=== PATIENT | male | born 1955 | race Caucasian/White ===

== ENCOUNTER 2016-05-19 10:28 | Inpatient (IN) | payer OTHER ==
[~2016-05-19] VITALS: Ht 167.6 cm; Wt 133.8 kg
[~2016-05-19 10:28] MED LIST: ALBU6.7H INH; ALBU90AE IH; ATOR20TA65 PO; DILT180C69 PO; FURO-151 PO; INSU3INS6 SUBCUT; IPRA3AMP IH; LOSA50TA20 PO; METO-293 PO; MONT10TA21 PO; MULT-1008 PO; OMEP40CA34 PO; OXYC-23 PO; P20 PO; ZOLP10TA2 PO
[2016-05-19] MEDS ORDERED: ALBUTEROL (0.083%) 2.5MG/3ML NEB HHN STA ×2 (10:45→10:53)
[2016-05-19] MEDS ORDERED: IPRATROPIUM BROMIDE (0.02%) 0.5MG/2.5ML NEB HHN STA ×2 (10:45→10:53)
[2016-05-19] MEDS ORDERED: METHYLPREDNISOLONE SOD SUCC 125 MG/2 ML VIAL IV STA (10:53)
[2016-05-19] MEDS ORDERED: MAGNESIUM 2 G PREMIX 50 ML IV STA (11:06)
[2016-05-19 11:39] LABS: EOSINOPHILS % 1.9 % (0.0-5.0); HEMATOCRIT. 40.8 % (42.0-52.0); HEMOGLOBIN. 13.5 g/dL (14.0-18.0); LYMPHOCYTES % 25.1 % (20.0-50.0); MEAN CORPUSCULAR HEMOGLOBIN 29.8 pg (28.0-32.0); MEAN CORPUSCULAR HGB CONC 33.1 g/dL (31.0-37.0); MEAN CORPUSCULAR VOLUME 90.2 fL (80.0-94.0); MEAN PLATELET VOLUME 7.9 fl (7.4-10.4); MONOCYTES % 8.8 % (2.0-8.0); NEUTROPHILS % 63.2 % (40.0-76.0); PLATELET 348 x1000/uL (130-400); RED BLOOD CELL COUNT 4.53 mill/uL (4.7-6.1); RED CELL DISTRIBUTION WIDTH 17.2 % (11.6-14.6); WHITE BLOOD COUNT 7.1 x1000/uL (4.5-11.0)
[2016-05-19] MEDS ORDERED: CEFTRIAXONE 1 G PREMIX 50 ML IV ONE (11:45)
[2016-05-19] MEDS ORDERED: AZITHROMYCIN 500 MG in DEXT 5% WATER 250 ML IV ONE (11:45)
[2016-05-19 11:47] LABS: INR 1.1
[2016-05-19 11:56] LABS: ALANINE AMINOTRANSFERASE 30 IU/L (13-61); ALBUMIN 3.1 g/dL (3.4-5.0); ANION GAP 14; CALCIUM 8.6 mg/dL (8.5-10.1); CARBON DIOXIDE 27 mEq/L (21-32); CHLORIDE 103 mEq/L (98-107); INDEX HEMOLYSI 1 (1-3); INDEX ICTERIC 1 (1-4); INDEX LIPEMIC 1 (1-3); NT PRO B-TYPE NATRIURETIC PEP 60 pg/mL (5-125); TROPONIN I < 0.02 ng/mL (0.00-0.04); UREA NITROGEN BLOOD 9 mg/dL (7-21); eGFR > 60 mL/min (>60)
[2016-05-19] MEDS ORDERED: ONDANSETRON HCL 4MG/2ML VIAL IV STA (11:56)
[2016-05-19] MEDS ORDERED: MORPHINE SULFATE 4 MG/ML CPJ (NOT FOR IM USE) IV STA (11:56)
[2016-05-19 16:00] VITALS: BP 130/89
[2016-05-19] MEDS ORDERED: ALBUTEROL (0.083%) 2.5MG/3ML NEB HHN PRN (17:00)
[2016-05-19] MEDS ORDERED: ALBUTEROL 6.7GM HFA INHALER INH PRN (17:00)
[2016-05-19] MEDS ORDERED: HYDROCODONE/ACETAMINOPHEN 5/325MG TABLET PO PRN (17:03)
[2016-05-19 18:00] VITALS: BP 120/83
[2016-05-19 18:12] VITALS: BP 120/83
[2016-05-19] MEDS: METHYLPREDNISOLONE SOD SUCC 40 MG/ML VIAL IV SCH (18:26)
[2016-05-19] MEDS ORDERED: FUROSEMIDE 40MG/4ML VIAL IVP NR (18:30)
[2016-05-19] MEDS ORDERED: BENAZEPRIL 20MG TABLET PO SCH (18:30)
[2016-05-19] MEDS: IPRATROPIUM/ALBUTEROL 0.5-3(2.5)MG/3ML NEB HHN PRN (19:43)
[2016-05-19 20:00] VITALS: BP 110/61
[2016-05-19] MEDS: MORPHINE SULFATE 2 MG/ML CPJ (NOT FOR IM USE) IV PRN (20:32)
[2016-05-19] MEDS: DIPHENHYDRAMINE 25MG CAPSULE PO PRN (20:32)
[2016-05-19] MEDS: ENOXAPARIN 40MG/0.4ML SYR SUBCUT SCH (20:33)
[2016-05-19] MEDS: ATORVASTATIN CALCIUM 20MG TABLET PO SCH (20:33)
[2016-05-19] MEDS ORDERED: MONTELUKAST SODIUM 10MG TABLET PO SCH (21:00)
[2016-05-19] MEDS: LEVOFLOXACIN 500MG PREMIX 100 ML IV SCH (21:20)
[2016-05-19] MEDS: ZOLPIDEM TARTRATE 5MG TABLET PO PRN (21:43)
[2016-05-19] MEDS: INSULIN DETEMIR UD 100 UNITS/ML SYR SUBCUT SCH (21:44)
[2016-05-19] MEDS: BLOOD SUGAR DIAGNOSTIC STRIP TEST SCH (21:56)
[2016-05-19] MEDS: INSULIN LISPRO 100 UNITS/ML SUBCUT SCH (21:56)
[2016-05-19 22:00] VITALS: BP 125/54
[2016-05-19] MEDS ORDERED: DEXTROSE 50% WATER 50ML SYRINGE IV PRN (22:00)
[2016-05-20] VITALS (11 sets, daily range): BP systolic 124–138; BP diastolic 67–88
[2016-05-20] MEDS: METHYLPREDNISOLONE SOD SUCC 40 MG/ML VIAL IV SCH ×5 (00:25→23:43)
[2016-05-20] MEDS: MORPHINE SULFATE 2 MG/ML CPJ (NOT FOR IM USE) IV PRN ×6 (00:26→21:08)
[2016-05-20] MEDS: IPRATROPIUM/ALBUTEROL 0.5-3(2.5)MG/3ML NEB HHN PRN ×2 (03:10→17:46)
[2016-05-20] MEDS: DIPHENHYDRAMINE 25MG CAPSULE PO PRN ×3 (03:41→21:06)
[2016-05-20] MEDS: OMEPRAZOLE 20MG CAPSULE EXTENDED RELEASE PO SCH (06:02)
[2016-05-20 06:34] LABS: BASOPHILS % 0.3 % (0.0-2.0); HEMATOCRIT. 38.9 % (42.0-52.0); HEMOGLOBIN. 12.9 g/dL (14.0-18.0); LYMPHOCYTES % 17.1 % (20.0-50.0); MEAN CORPUSCULAR HEMOGLOBIN 30.2 pg (28.0-32.0); MEAN CORPUSCULAR HGB CONC 33.1 g/dL (31.0-37.0); MEAN CORPUSCULAR VOLUME 91.2 fL (80.0-94.0); MEAN PLATELET VOLUME 8.9 fl (7.4-10.4); MONOCYTES % 3.2 % (2.0-8.0); NEUTROPHILS % 79.4 % (40.0-76.0); PLATELET 359 x1000/uL (130-400); RED BLOOD CELL COUNT 4.27 mill/uL (4.7-6.1); RED CELL DISTRIBUTION WIDTH 17.1 % (11.6-14.6)
[2016-05-20 07:16] LABS: CHLORIDE 100 mEq/L (98-107); INDEX HEMOLYSI 1 (1-3); INDEX ICTERIC 1 (1-4); INDEX LIPEMIC 1 (1-3)
[2016-05-20 07:35] LABS: ANION GAP 16; CALCIUM 8.5 mg/dL (8.5-10.1); CARBON DIOXIDE 23 mEq/L (21-32); HDL CHOLESTEROL 47 mg/dL (40-59); LDL CHOLESTEROL 71 mg/dL (5-100); TRIGLYCERIDE 87 mg/dL (0-150); UREA NITROGEN BLOOD 17 mg/dL (7-21); eGFR > 60 mL/min (>60)
[2016-05-20] MEDS: BLOOD SUGAR DIAGNOSTIC STRIP TEST SCH ×4 (08:08→20:46)
[2016-05-20] MEDS: ENOXAPARIN 40MG/0.4ML SYR SUBCUT SCH ×2 (08:29→21:06)
[2016-05-20] MEDS: DILTIAZEM HCL 180MG CAPSULE CD 24HR PO SCH (08:29)
[2016-05-20] MEDS: MULTIVITAMINS,THER W-MINERALS TABLET PO SCH (08:29)
[2016-05-20] MEDS: LOSARTAN POTASSIUM 50 MG TABLET PO SCH (08:29)
[2016-05-20] MEDS: INSULIN LISPRO 100 UNITS/ML SUBCUT SCH ×4 (08:30→21:09)
[2016-05-20] MEDS: FUROSEMIDE 40MG TABLET PO SCH (08:30)
[2016-05-20] MEDS ORDERED: ATORVASTATIN CALCIUM 20MG TABLET PO SCH (09:00)
[2016-05-20] MEDS: LEVOFLOXACIN 500MG PREMIX 100 ML IV SCH (20:51)
[2016-05-20] MEDS: ATORVASTATIN CALCIUM 20MG TABLET PO SCH (21:06)
[2016-05-20] MEDS: INSULIN DETEMIR UD 100 UNITS/ML SYR SUBCUT SCH (21:10)
[2016-05-20] MEDS: ZOLPIDEM TARTRATE 5MG TABLET PO PRN (22:08)
[2016-05-21] VITALS (16 sets, daily range): BP systolic 114–148; BP diastolic 61–90
[2016-05-21] MEDS: MORPHINE SULFATE 2 MG/ML CPJ (NOT FOR IM USE) IV PRN ×4 (03:51→21:08)
[2016-05-21] MEDS: METHYLPREDNISOLONE SOD SUCC 40 MG/ML VIAL IV SCH ×3 (06:13→18:11)
[2016-05-21] MEDS: OMEPRAZOLE 20MG CAPSULE EXTENDED RELEASE PO SCH (06:19)
[2016-05-21] MEDS: DIPHENHYDRAMINE 25MG CAPSULE PO PRN ×2 (06:19→12:56)
[2016-05-21] MEDS: BLOOD SUGAR DIAGNOSTIC STRIP TEST SCH ×4 (08:12→20:49)
[2016-05-21] MEDS: LOSARTAN POTASSIUM 50 MG TABLET PO SCH (08:20)
[2016-05-21] MEDS: FUROSEMIDE 40MG TABLET PO SCH (08:20)
[2016-05-21] MEDS: ENOXAPARIN 40MG/0.4ML SYR SUBCUT SCH ×2 (08:21→20:49)
[2016-05-21] MEDS: INSULIN LISPRO 100 UNITS/ML SUBCUT SCH ×4 (08:23→20:48)
[2016-05-21] MEDS: DILTIAZEM HCL 180MG CAPSULE CD 24HR PO SCH (08:27)
[2016-05-21] MEDS: MULTIVITAMINS,THER W-MINERALS TABLET PO SCH (09:00)
[2016-05-21] MEDS: IPRATROPIUM/ALBUTEROL 0.5-3(2.5)MG/3ML NEB HHN PRN ×2 (12:17→20:33)
[2016-05-21] MEDS: INSULIN DETEMIR UD 100 UNITS/ML SYR SUBCUT SCH (20:49)
[2016-05-21] MEDS: LEVOFLOXACIN 500MG PREMIX 100 ML IV SCH (20:50)
[2016-05-21] MEDS: ATORVASTATIN CALCIUM 20MG TABLET PO SCH (20:50)
[2016-05-21] MEDS: ZOLPIDEM TARTRATE 5MG TABLET PO PRN (21:07)
[2016-05-22] VITALS (12 sets, daily range): BP systolic 124–155; BP diastolic 63–88
[2016-05-22] MEDS: METHYLPREDNISOLONE SOD SUCC 40 MG/ML VIAL IV SCH ×4 (00:37→18:05)
[2016-05-22] MEDS: MORPHINE SULFATE 2 MG/ML CPJ (NOT FOR IM USE) IV PRN ×5 (02:54→19:37)
[2016-05-22] MEDS: DIPHENHYDRAMINE 25MG CAPSULE PO PRN ×2 (06:39→19:38)
[2016-05-22] MEDS: BLOOD SUGAR DIAGNOSTIC STRIP TEST SCH ×4 (08:06→21:44)
[2016-05-22] MEDS: INSULIN LISPRO 100 UNITS/ML SUBCUT SCH ×4 (08:15→20:39)
[2016-05-22] MEDS: IPRATROPIUM/ALBUTEROL 0.5-3(2.5)MG/3ML NEB HHN PRN ×2 (08:50→16:05)
[2016-05-22] MEDS: ENOXAPARIN 40MG/0.4ML SYR SUBCUT SCH ×2 (09:00→20:37)
[2016-05-22] MEDS: FAMOTIDINE 20MG TABLET PO SCH ×2 (09:01→17:22)
[2016-05-22] MEDS: MULTIVITAMINS,THER W-MINERALS TABLET PO SCH (09:01)
[2016-05-22] MEDS: LOSARTAN POTASSIUM 50 MG TABLET PO SCH (09:01)
[2016-05-22] MEDS: DILTIAZEM HCL 180MG CAPSULE CD 24HR PO SCH (09:01)
[2016-05-22] MEDS: FUROSEMIDE 40MG TABLET PO SCH (09:01)
[2016-05-22] MEDS: LEVOFLOXACIN 500MG PREMIX 100 ML IV SCH (20:05)
[2016-05-22] MEDS: ATORVASTATIN CALCIUM 20MG TABLET PO SCH (20:38)
[2016-05-22] MEDS: ZOLPIDEM TARTRATE 5MG TABLET PO PRN (20:38)
[2016-05-22] MEDS: INSULIN DETEMIR UD 100 UNITS/ML SYR SUBCUT SCH (21:57)
[2016-05-23] VITALS (13 sets, daily range): BP systolic 129–165; BP diastolic 43–100
[2016-05-23] MEDS: METHYLPREDNISOLONE SOD SUCC 40 MG/ML VIAL IV SCH ×5 (00:27→23:39)
[2016-05-23] MEDS: MORPHINE SULFATE 2 MG/ML CPJ (NOT FOR IM USE) IV PRN ×5 (00:35→20:42)
[2016-05-23] MEDS: IPRATROPIUM/ALBUTEROL 0.5-3(2.5)MG/3ML NEB HHN PRN ×2 (02:29→11:58)
[2016-05-23] MEDS: DIPHENHYDRAMINE 25MG CAPSULE PO PRN ×2 (05:22→19:38)
[2016-05-23] MEDS: BLOOD SUGAR DIAGNOSTIC STRIP TEST SCH ×4 (07:50→21:00)
[2016-05-23] MEDS: INSULIN LISPRO 100 UNITS/ML SUBCUT SCH ×5 (08:30→22:18)
[2016-05-23] MEDS: ENOXAPARIN 40MG/0.4ML SYR SUBCUT SCH ×2 (08:32→20:41)
[2016-05-23] MEDS: FAMOTIDINE 20MG TABLET PO SCH ×2 (08:33→17:49)
[2016-05-23] MEDS: FUROSEMIDE 40MG TABLET PO SCH (08:33)
[2016-05-23] MEDS: LOSARTAN POTASSIUM 50 MG TABLET PO SCH (08:33)
[2016-05-23] MEDS: MULTIVITAMINS,THER W-MINERALS TABLET PO SCH (08:33)
[2016-05-23] MEDS: DILTIAZEM HCL 180MG CAPSULE CD 24HR PO SCH (08:33)
[2016-05-23] MEDS: LEVOFLOXACIN 250MG TABLET PO SCH (11:45)
[2016-05-23] MEDS: ATORVASTATIN CALCIUM 20MG TABLET PO SCH (20:41)
[2016-05-23] MEDS: ZOLPIDEM TARTRATE 5MG TABLET PO PRN (20:41)
[2016-05-23] MEDS: INSULIN DETEMIR UD 100 UNITS/ML SYR SUBCUT SCH (22:20)
[2016-05-24] VITALS (17 sets, daily range): BP systolic 106–170; BP diastolic 66–102
[2016-05-24] MEDS: IPRATROPIUM/ALBUTEROL 0.5-3(2.5)MG/3ML NEB HHN PRN (02:10)
[2016-05-24] MEDS: MORPHINE SULFATE 2 MG/ML CPJ (NOT FOR IM USE) IV PRN ×5 (04:30→21:16)
[2016-05-24] MEDS: METHYLPREDNISOLONE SOD SUCC 40 MG/ML VIAL IV SCH ×4 (05:33→23:29)
[2016-05-24] MEDS: BLOOD SUGAR DIAGNOSTIC STRIP TEST SCH ×4 (08:18→21:12)
[2016-05-24] MEDS: INSULIN LISPRO 100 UNITS/ML SUBCUT SCH ×4 (08:20→21:11)
[2016-05-24] MEDS: DILTIAZEM HCL 180MG CAPSULE CD 24HR PO SCH (08:45)
[2016-05-24] MEDS: FUROSEMIDE 40MG TABLET PO SCH (08:45)
[2016-05-24] MEDS: FAMOTIDINE 20MG TABLET PO SCH ×2 (08:46→17:18)
[2016-05-24] MEDS: MULTIVITAMINS,THER W-MINERALS TABLET PO SCH (08:46)
[2016-05-24] MEDS: ENOXAPARIN 40MG/0.4ML SYR SUBCUT SCH ×2 (08:48→21:11)
[2016-05-24] MEDS: LOSARTAN POTASSIUM 50 MG TABLET PO SCH (08:53)
[2016-05-24] MEDS: LEVOFLOXACIN 250MG TABLET PO SCH (11:23)
[2016-05-24] MEDS: INSULIN DETEMIR UD 100 UNITS/ML SYR SUBCUT SCH ×2 (11:26→21:44)
[2016-05-24] MEDS: GUAIFENESIN/CODEINE 100-10MG/5ML UDC PO PRN (14:42)
[2016-05-24] MEDS: DIPHENHYDRAMINE 25MG CAPSULE PO PRN (20:09)
[2016-05-24] MEDS: ATORVASTATIN CALCIUM 20MG TABLET PO SCH (21:11)
[2016-05-24] MEDS: ZOLPIDEM TARTRATE 5MG TABLET PO PRN (21:42)
[2016-05-25] VITALS (12 sets, daily range): BP systolic 132–163; BP diastolic 73–102
[2016-05-25] MEDS: MORPHINE SULFATE 2 MG/ML CPJ (NOT FOR IM USE) IV PRN ×3 (02:15→13:06)
[2016-05-25] MEDS: GUAIFENESIN/CODEINE 100-10MG/5ML UDC PO PRN ×2 (04:00→08:29)
[2016-05-25] MEDS: METHYLPREDNISOLONE SOD SUCC 40 MG/ML VIAL IV SCH ×4 (05:13→23:58)
[2016-05-25 07:12] LABS: BASOPHILS % 0.6 % (0.0-2.0); HEMATOCRIT. 44.8 % (42.0-52.0); HEMOGLOBIN. 14.4 g/dL (14.0-18.0); LYMPHOCYTES % 10.2 % (20.0-50.0); MEAN CORPUSCULAR HEMOGLOBIN 29.5 pg (28.0-32.0); MEAN CORPUSCULAR HGB CONC 32.3 g/dL (31.0-37.0); MEAN CORPUSCULAR VOLUME 91.6 fL (80.0-94.0); MEAN PLATELET VOLUME 9.1 fl (7.4-10.4); MONOCYTES % 4.4 % (2.0-8.0); NEUTROPHILS % 84.8 % (40.0-76.0); PLATELET 405 x1000/uL (130-400); RED BLOOD CELL COUNT 4.89 mill/uL (4.7-6.1); RED CELL DISTRIBUTION WIDTH 16.7 % (11.6-14.6); WHITE BLOOD COUNT 17.2 x1000/uL (4.5-11.0)
[2016-05-25 07:29] LABS: ANION GAP 13; CALCIUM 8.7 mg/dL (8.5-10.1); CARBON DIOXIDE 35 mEq/L (21-32); CHLORIDE 99 mEq/L (98-107); INDEX HEMOLYSI 2 (1-3); INDEX ICTERIC 1 (1-4); INDEX LIPEMIC 1 (1-3); UREA NITROGEN BLOOD 27 mg/dL (7-21); eGFR > 60 mL/min (>60)
[2016-05-25] MEDS: BLOOD SUGAR DIAGNOSTIC STRIP TEST SCH ×4 (07:30→20:35)
[2016-05-25] MEDS: MULTIVITAMINS,THER W-MINERALS TABLET PO SCH (08:29)
[2016-05-25] MEDS: FAMOTIDINE 20MG TABLET PO SCH ×2 (08:29→17:21)
[2016-05-25] MEDS: FUROSEMIDE 40MG TABLET PO SCH (08:29)
[2016-05-25] MEDS: LOSARTAN POTASSIUM 50 MG TABLET PO SCH (08:29)
[2016-05-25] MEDS: DILTIAZEM HCL 180MG CAPSULE CD 24HR PO SCH (08:30)
[2016-05-25] MEDS: ENOXAPARIN 40MG/0.4ML SYR SUBCUT SCH ×2 (08:30→20:41)
[2016-05-25] MEDS: INSULIN LISPRO 100 UNITS/ML SUBCUT SCH ×4 (08:31→20:35)
[2016-05-25] MEDS: INSULIN DETEMIR UD 100 UNITS/ML SYR SUBCUT SCH ×2 (09:14→21:45)
[2016-05-25] MEDS: DIPHENHYDRAMINE 25MG CAPSULE PO PRN ×2 (11:32→20:33)
[2016-05-25] MEDS: LEVOFLOXACIN 250MG TABLET PO SCH (11:32)
[2016-05-25] MEDS: CLONIDINE 0.1MG TABLET PO PRN (11:33)
[2016-05-25] MEDS: ALBUTEROL 2MG TABLET PO SCH (16:35)
[2016-05-25] MEDS: MORPHINE SULFATE 4 MG/ML CPJ (NOT FOR IM USE) IV PRN ×2 (17:26→21:44)
[2016-05-25] MEDS: BUDESONIDE 0.5MG/2ML NEB HHN SCH (20:10)
[2016-05-25] MEDS: ATORVASTATIN CALCIUM 20MG TABLET PO SCH (20:33)
[2016-05-25] MEDS: ZOLPIDEM TARTRATE 5MG TABLET PO PRN (21:43)
[2016-05-26] VITALS (13 sets, daily range): BP systolic 124–166; BP diastolic 75–96
[2016-05-26] MEDS: MORPHINE SULFATE 4 MG/ML CPJ (NOT FOR IM USE) IV PRN ×6 (02:07→23:54)
[2016-05-26] MEDS: GUAIFENESIN/CODEINE 100-10MG/5ML UDC PO PRN ×3 (04:37→15:34)
[2016-05-26] MEDS: METHYLPREDNISOLONE SOD SUCC 40 MG/ML VIAL IV SCH ×4 (06:23→23:00)
[2016-05-26] MEDS: CLONIDINE 0.1MG TABLET PO PRN (07:17)
[2016-05-26] MEDS: BLOOD SUGAR DIAGNOSTIC STRIP TEST SCH ×4 (07:30→20:59)
[2016-05-26] MEDS: ENOXAPARIN 40MG/0.4ML SYR SUBCUT SCH ×2 (08:39→21:10)
[2016-05-26] MEDS: FUROSEMIDE 40MG TABLET PO SCH (08:40)
[2016-05-26] MEDS: MULTIVITAMINS,THER W-MINERALS TABLET PO SCH (08:40)
[2016-05-26] MEDS: LOSARTAN POTASSIUM 50 MG TABLET PO SCH (08:40)
[2016-05-26] MEDS: FAMOTIDINE 20MG TABLET PO SCH ×2 (08:40→18:10)
[2016-05-26] MEDS: DILTIAZEM HCL 180MG CAPSULE CD 24HR PO SCH (08:40)
[2016-05-26] MEDS: INSULIN LISPRO 100 UNITS/ML SUBCUT SCH ×4 (08:42→21:11)
[2016-05-26] MEDS: INSULIN DETEMIR UD 100 UNITS/ML SYR SUBCUT SCH ×2 (09:51→21:12)
[2016-05-26] MEDS: DIPHENHYDRAMINE 25MG CAPSULE PO PRN ×2 (11:27→23:00)
[2016-05-26] MEDS: LEVOFLOXACIN 250MG TABLET PO SCH (11:28)
[2016-05-26] MEDS: BUDESONIDE 0.5MG/2ML NEB HHN SCH (20:46)
[2016-05-26] MEDS: ATORVASTATIN CALCIUM 20MG TABLET PO SCH (21:10)
[2016-05-26] MEDS: ZOLPIDEM TARTRATE 5MG TABLET PO PRN (21:15)
[2016-05-27] VITALS (9 sets, daily range): BP systolic 123–160; BP diastolic 60–100
[2016-05-27] MEDS: MORPHINE SULFATE 4 MG/ML CPJ (NOT FOR IM USE) IV PRN ×3 (04:09→12:13)
[2016-05-27] MEDS: METHYLPREDNISOLONE SOD SUCC 40 MG/ML VIAL IV SCH ×2 (05:01→12:13)
[2016-05-27] MEDS: BLOOD SUGAR DIAGNOSTIC STRIP TEST SCH ×2 (08:19→11:59)
[2016-05-27] MEDS: FUROSEMIDE 40MG TABLET PO SCH (08:25)
[2016-05-27] MEDS: FAMOTIDINE 20MG TABLET PO SCH (08:25)
[2016-05-27] MEDS: ENOXAPARIN 40MG/0.4ML SYR SUBCUT SCH (08:25)
[2016-05-27] MEDS: MULTIVITAMINS,THER W-MINERALS TABLET PO SCH (08:25)
[2016-05-27] MEDS: LOSARTAN POTASSIUM 50 MG TABLET PO SCH (08:25)
[2016-05-27] MEDS: INSULIN LISPRO 100 UNITS/ML SUBCUT SCH ×2 (08:26→12:10)
[2016-05-27] MEDS: DILTIAZEM HCL 180MG CAPSULE CD 24HR PO SCH (08:37)
[2016-05-27] MEDS: INSULIN DETEMIR UD 100 UNITS/ML SYR SUBCUT SCH (09:50)
[2016-05-27] MEDS: BUDESONIDE 0.5MG/2ML NEB HHN SCH (09:52)
[2016-05-27] MEDS: IPRATROPIUM/ALBUTEROL 0.5-3(2.5)MG/3ML NEB HHN PRN (09:52)
[2016-05-27] MEDS: ALBUTEROL 2MG TABLET PO SCH (13:50)
== END 2016-05-27 18:36 | disposition home or self-care, planned readmission (81) | DRG 189 ==
LOC: ER 11:16 → 5EST 12:44
PROVIDERS: ADMIT Internal Medicine; ATTEND Internal Medicine
DX: J96.00 Acute respiratory failure, unspecified whether with hypoxia or hypercapnia (principal); J45.901 Unspecified asthma with (acute) exacerbation; E44.1 Mild protein-calorie malnutrition; J44.1 Chronic obstructive pulmonary disease with (acute) exacerbation; Z68.42 Body mass index [BMI] 45.0-49.9, adult; J44.9 Chronic obstructive pulmonary disease, unspecified; E11.9 Type 2 diabetes mellitus without complications; E78.5 Hyperlipidemia, unspecified; J20.9 Acute bronchitis, unspecified; E66.9 Obesity, unspecified; E66.01 Morbid (severe) obesity due to excess calories; G89.29 Other chronic pain; M54.5 Low back pain; I10 Essential (primary) hypertension; Z90.49 Acquired absence of other specified parts of digestive tract; Z79.899 Other long term (current) drug therapy; Z99.81 Dependence on supplemental oxygen
CPT/HCPCS: 36415; 71010; 80048; 80053; 80061; 82962; 83605; 83880; 84484; 85025; 85610; 87040; 93005; 94640; 94660; 96365; 96367; 96368; 96375; 99291; J0456; J0696; J1650; J1815; J1940; J1956; J2270; J2405; J2920; J2930; J3475; J7050; J7060; J7611; J7620; J7626; Q0163

== ENCOUNTER 2016-09-05 17:40 | Observation (INO) | payer OTHER ==
[~2016-09-05] VITALS: Ht 167.6 cm; Wt 129.7 kg
[~2016-09-05 17:40] MED LIST changes: +IOHEXOL-350 100 ML BOTTLE ONE; -IPRA3AMP IH; +IPRA3AMP9 IH; +SODIUM CHLORIDE 0.9% 10ML VIAL ONE; +TEMA15CA PO
[2016-09-05] MEDS ORDERED: ONDANSETRON HCL 4MG/2ML VIAL IV STA (18:55)
[2016-09-05] MEDS ORDERED: MORPHINE SULFATE 4 MG/ML CPJ (NOT FOR IM USE) IV STA (18:55)
[2016-09-05] MEDS ORDERED: SODIUM CHLORIDE 0.9% 1,000 ML IV ONE (18:55)
[2016-09-05 19:19] LABS: BASOPHILS % 0.7 % (0.0-2.0); EOSINOPHILS % 1.3 % (0.0-5.0); HEMATOCRIT. 38.4 % (42.0-52.0); HEMOGLOBIN. 12.6 g/dL (14.0-18.0); LYMPHOCYTES % 26.7 % (20.0-50.0); MEAN CORPUSCULAR VOLUME 85.6 fL (80.0-94.0); MONOCYTES % 9.4 % (2.0-8.0); NEUTROPHILS % 61.9 % (40.0-76.0); RED BLOOD CELL COUNT 4.48 mill/uL (4.7-6.1); RED CELL DISTRIBUTION WIDTH 20.3 % (11.6-14.6)
[2016-09-05 19:21] LABS: PROTHROMBIN TIME 10.2 sec
[2016-09-05 19:30] LABS: CARBON DIOXIDE 26 mEq/L (21-32); CHLORIDE 110 mEq/L (98-107); TROPONIN I < 0.02 ng/mL (0.00-0.04)
[2016-09-05 19:35] LABS: PLATELET 503 x1000/uL (130-400)
[2016-09-05 19:36] LABS: MEAN PLATELET VOLUME 8.7 fl (7.4-10.4)
[2016-09-05] MEDS ORDERED: LEVOFLOXACIN 750MG PREMIX 150 ML IV SCH (20:00)
[2016-09-06] MEDS ORDERED: IPRATROPIUM/ALBUTEROL 0.5-3(2.5)MG/3ML NEB HHN PRN
[2016-09-06] MEDS ORDERED: DEXTROSE 50% WATER 50ML SYRINGE IV PRN
[2016-09-06] MEDS ORDERED: OXYCODONE HCL/ACETAMINOPHEN 5/325MG TABLET PO PRN (00:30)
[2016-09-06] MEDS: TEMAZEPAM 15MG CAPSULE PO PRN ×2 (01:20→21:40)
[2016-09-06] MEDS: MORPHINE SULFATE 4 MG/ML CPJ (NOT FOR IM USE) IV PRN ×5 (03:21→22:35)
[2016-09-06] MEDS: PIPERACILLIN/TAZ 3.375G PREMIX 50 ML IV SCH ×4 (03:21→21:42)
[2016-09-06] MEDS: BLOOD SUGAR DIAGNOSTIC STRIP TEST SCH ×4 (05:54→21:42)
[2016-09-06] MEDS: INSULIN LISPRO 100 UNITS/ML SUBCUT SCH ×4 (05:55→22:08)
[2016-09-06] MEDS: PANTOPRAZOLE 40MG DR TABLET PO SCH (06:25)
[2016-09-06 06:33] LABS: BASOPHILS % 0.8 % (0.0-2.0); EOSINOPHILS % 1.6 % (0.0-5.0); HEMATOCRIT. 37.6 % (42.0-52.0); LYMPHOCYTES % 31.5 % (20.0-50.0); MEAN CORPUSCULAR HEMOGLOBIN 27.7 pg (28.0-32.0); MEAN CORPUSCULAR VOLUME 86.3 fL (80.0-94.0); MEAN PLATELET VOLUME 8.8 fl (7.4-10.4); MONOCYTES % 8.2 % (2.0-8.0); NEUTROPHILS % 57.9 % (40.0-76.0); PLATELET 487 x1000/uL (130-400); RED BLOOD CELL COUNT 4.35 mill/uL (4.7-6.1); RED CELL DISTRIBUTION WIDTH 19.9 % (11.6-14.6)
[2016-09-06] MEDS: IPRATROPIUM/ALBUTEROL 0.5-3(2.5)MG/3ML NEB HHN PRN ×2 (06:36→19:59)
[2016-09-06 07:12] LABS: CARBON DIOXIDE 25 mEq/L (21-32); CHLORIDE 107 mEq/L (98-107)
[2016-09-06] MEDS: PREDNISONE 20MG TABLET PO SCH (08:28)
[2016-09-06] MEDS: FUROSEMIDE 40MG TABLET PO SCH (08:28)
[2016-09-06] MEDS: DILTIAZEM HCL 180MG CAPSULE CD 24HR PO SCH (08:29)
[2016-09-06] MEDS: LOSARTAN POTASSIUM 50 MG TABLET PO SCH (08:29)
[2016-09-06] MEDS: MULTIVITAMINS,THER W-MINERALS TABLET PO SCH (08:29)
[2016-09-06] MEDS: ENOXAPARIN 30MG/0.3ML SYR SUBCUT SCH ×2 (08:36→21:42)
[2016-09-06] MEDS ORDERED: ENOXAPARIN 40MG/0.4ML SYR SUBCUT SCH (09:00)
[2016-09-06] MEDS ORDERED: MEDICATION NOT ON FORMULARY EA (Omeprazole 40 MG) PO SCH (09:00)
[2016-09-06] MEDS ORDERED: [UNRECOGNIZED DRUG - OTHER] PO SCH (09:00)
[2016-09-06 14:17] LABS: TROPONIN I < 0.02 ng/mL (0.00-0.04)
[2016-09-06] MEDS: ATORVASTATIN CALCIUM 20MG TABLET PO SCH (21:41)
[2016-09-06] MEDS: MONTELUKAST SODIUM 10MG TABLET PO SCH (21:41)
[2016-09-06] MEDS: INSULIN DETEMIR UD 100 UNITS/ML SYR SUBCUT SCH (22:34)
[2016-09-07] MEDS: PIPERACILLIN/TAZ 3.375G PREMIX 50 ML IV SCH ×6 (02:42→09:03)
[2016-09-07] MEDS: MORPHINE SULFATE 4 MG/ML CPJ (NOT FOR IM USE) IV PRN ×4 (02:54→20:36)
[2016-09-07] MEDS: BLOOD SUGAR DIAGNOSTIC STRIP TEST SCH ×4 (06:56→20:35)
[2016-09-07] MEDS: PANTOPRAZOLE 40MG DR TABLET PO SCH (06:59)
[2016-09-07] MEDS: INSULIN LISPRO 100 UNITS/ML SUBCUT SCH ×4 (07:17→21:35)
[2016-09-07] MEDS: IPRATROPIUM/ALBUTEROL 0.5-3(2.5)MG/3ML NEB HHN PRN ×3 (07:55→23:56)
[2016-09-07] MEDS: DILTIAZEM HCL 180MG CAPSULE CD 24HR PO SCH (08:46)
[2016-09-07] MEDS: PREDNISONE 20MG TABLET PO SCH (08:46)
[2016-09-07] MEDS: FUROSEMIDE 40MG TABLET PO SCH (08:46)
[2016-09-07] MEDS: MULTIVITAMINS,THER W-MINERALS TABLET PO SCH (08:46)
[2016-09-07] MEDS: LOSARTAN POTASSIUM 50 MG TABLET PO SCH (08:46)
[2016-09-07] MEDS: ENOXAPARIN 30MG/0.3ML SYR SUBCUT SCH ×2 (08:47→20:35)
[2016-09-07 10:43] LABS: BASOPHILS % 0.8 % (0.0-2.0); EOSINOPHILS % 0.9 % (0.0-5.0); HEMATOCRIT. 34.5 % (42.0-52.0); HEMOGLOBIN. 11.1 g/dL (14.0-18.0); LYMPHOCYTES % 26.5 % (20.0-50.0); MEAN CORPUSCULAR HEMOGLOBIN 27.4 pg (28.0-32.0); MEAN CORPUSCULAR VOLUME 85.2 fL (80.0-94.0); MEAN PLATELET VOLUME 8.5 fl (7.4-10.4); MONOCYTES % 7.7 % (2.0-8.0); NEUTROPHILS % 64.1 % (40.0-76.0); PLATELET 496 x1000/uL (130-400); RED BLOOD CELL COUNT 4.05 mill/uL (4.7-6.1); RED CELL DISTRIBUTION WIDTH 19.8 % (11.6-14.6)
[2016-09-07 10:58] LABS: CARBON DIOXIDE 30 mEq/L (21-32); CHLORIDE 104 mEq/L (98-107)
[2016-09-07] MEDS ORDERED: FUROSEMIDE 40MG/4ML VIAL IVP NR (16:45)
[2016-09-07] MEDS ORDERED: POTASSIUM CHLORIDE 20MEQ TABLET SR PO NR (16:45)
[2016-09-07] MEDS: ATORVASTATIN CALCIUM 20MG TABLET PO SCH (20:35)
[2016-09-07] MEDS: MONTELUKAST SODIUM 10MG TABLET PO SCH (20:35)
[2016-09-07] MEDS: TEMAZEPAM 15MG CAPSULE PO PRN (21:32)
[2016-09-07] MEDS: INSULIN DETEMIR UD 100 UNITS/ML SYR SUBCUT SCH (21:35)
[2016-09-08] MEDS: MORPHINE SULFATE 4 MG/ML CPJ (NOT FOR IM USE) IV PRN ×6 (00:35→21:53)
[2016-09-08] MEDS: PIPERACILLIN/TAZ 3.375G PREMIX 50 ML IV SCH ×4 (03:48→21:53)
[2016-09-08] MEDS: INSULIN LISPRO 100 UNITS/ML SUBCUT SCH ×4 (06:18→20:29)
[2016-09-08] MEDS: BLOOD SUGAR DIAGNOSTIC STRIP TEST SCH ×4 (06:18→20:29)
[2016-09-08] MEDS: DILTIAZEM HCL 180MG CAPSULE CD 24HR PO SCH (09:02)
[2016-09-08] MEDS: PREDNISONE 20MG TABLET PO SCH (09:02)
[2016-09-08] MEDS: ENOXAPARIN 30MG/0.3ML SYR SUBCUT SCH (09:02)
[2016-09-08] MEDS: LOSARTAN POTASSIUM 50 MG TABLET PO SCH (09:02)
[2016-09-08] MEDS: FAMOTIDINE 20MG TABLET PO SCH ×2 (09:02→20:28)
[2016-09-08] MEDS: FUROSEMIDE 40MG TABLET PO SCH (09:02)
[2016-09-08] MEDS: MULTIVITAMINS,THER W-MINERALS TABLET PO SCH (09:02)
[2016-09-08] MEDS: IPRATROPIUM/ALBUTEROL 0.5-3(2.5)MG/3ML NEB HHN PRN ×2 (10:11→21:14)
[2016-09-08] MEDS ORDERED: POTASSIUM CHLORIDE 20MEQ TABLET SR PO SCH (18:00)
[2016-09-08] MEDS: MONTELUKAST SODIUM 10MG TABLET PO SCH (20:28)
[2016-09-08] MEDS: ENOXAPARIN 40MG/0.4ML SYR SUBCUT SCH (20:29)
[2016-09-08] MEDS: ATORVASTATIN CALCIUM 20MG TABLET PO SCH (20:29)
[2016-09-08] MEDS: TEMAZEPAM 15MG CAPSULE PO PRN (21:59)
[2016-09-08] MEDS: INSULIN DETEMIR UD 100 UNITS/ML SYR SUBCUT SCH (22:00)
[2016-09-09] MEDS: MORPHINE SULFATE 4 MG/ML CPJ (NOT FOR IM USE) IV PRN ×5 (02:44→20:06)
[2016-09-09] MEDS: PIPERACILLIN/TAZ 3.375G PREMIX 50 ML IV SCH ×4 (03:57→21:30)
[2016-09-09] MEDS: IPRATROPIUM/ALBUTEROL 0.5-3(2.5)MG/3ML NEB HHN PRN ×3 (05:28→13:09)
[2016-09-09] MEDS: BLOOD SUGAR DIAGNOSTIC STRIP TEST SCH ×4 (06:19→20:24)
[2016-09-09] MEDS: INSULIN LISPRO 100 UNITS/ML SUBCUT SCH ×4 (06:19→20:24)
[2016-09-09 06:24] LABS: EOSINOPHILS % 0.3 % (0.0-5.0); HEMATOCRIT. 37.7 % (42.0-52.0); HEMOGLOBIN. 12.1 g/dL (14.0-18.0); LYMPHOCYTES % 32.7 % (20.0-50.0); MEAN CORPUSCULAR HEMOGLOBIN 27.8 pg (28.0-32.0); MEAN CORPUSCULAR VOLUME 86.8 fL (80.0-94.0); MONOCYTES % 8.9 % (2.0-8.0); NEUTROPHILS % 55.1 % (40.0-76.0); PLATELET 527 x1000/uL (130-400); RED BLOOD CELL COUNT 4.34 mill/uL (4.7-6.1); RED CELL DISTRIBUTION WIDTH 20.2 % (11.6-14.6)
[2016-09-09] MEDS: LOSARTAN POTASSIUM 50 MG TABLET PO SCH (09:00)
[2016-09-09] MEDS: DILTIAZEM HCL 180MG CAPSULE CD 24HR PO SCH (09:00)
[2016-09-09] MEDS: MULTIVITAMINS,THER W-MINERALS TABLET PO SCH (09:01)
[2016-09-09] MEDS: PREDNISONE 20MG TABLET PO SCH (09:01)
[2016-09-09] MEDS: FUROSEMIDE 40MG TABLET PO SCH (09:01)
[2016-09-09] MEDS: FAMOTIDINE 20MG TABLET PO SCH ×2 (09:01→20:03)
[2016-09-09] MEDS: ENOXAPARIN 40MG/0.4ML SYR SUBCUT SCH ×2 (09:02→20:04)
[2016-09-09] MEDS: MONTELUKAST SODIUM 10MG TABLET PO SCH (20:03)
[2016-09-09] MEDS: ATORVASTATIN CALCIUM 20MG TABLET PO SCH (20:03)
[2016-09-09] MEDS: INSULIN DETEMIR UD 100 UNITS/ML SYR SUBCUT SCH (21:30)
[2016-09-09] MEDS: TEMAZEPAM 15MG CAPSULE PO PRN (21:35)
[2016-09-10] MEDS: MORPHINE SULFATE 4 MG/ML CPJ (NOT FOR IM USE) IV PRN ×4 (00:50→13:48)
[2016-09-10] MEDS: PIPERACILLIN/TAZ 3.375G PREMIX 50 ML IV SCH ×2 (05:06→10:10)
[2016-09-10 05:58] LABS: EOSINOPHILS % 0.4 % (0.0-5.0); HEMATOCRIT. 36.7 % (42.0-52.0); HEMOGLOBIN. 11.9 g/dL (14.0-18.0); LYMPHOCYTES % 25.9 % (20.0-50.0); MEAN CORPUSCULAR HEMOGLOBIN 27.7 pg (28.0-32.0); MEAN CORPUSCULAR VOLUME 85.5 fL (80.0-94.0); MEAN PLATELET VOLUME 8.7 fl (7.4-10.4); MONOCYTES % 7.3 % (2.0-8.0); NEUTROPHILS % 65.4 % (40.0-76.0); PLATELET 514 x1000/uL (130-400); RED BLOOD CELL COUNT 4.29 mill/uL (4.7-6.1); RED CELL DISTRIBUTION WIDTH 19.8 % (11.6-14.6)
[2016-09-10 06:17] LABS: CARBON DIOXIDE 32 mEq/L (21-32); CHLORIDE 102 mEq/L (98-107)
[2016-09-10] MEDS: BLOOD SUGAR DIAGNOSTIC STRIP TEST SCH ×2 (06:44→11:45)
[2016-09-10] MEDS: INSULIN LISPRO 100 UNITS/ML SUBCUT SCH ×2 (07:00→13:48)
[2016-09-10] MEDS: PREDNISONE 20MG TABLET PO SCH (08:16)
[2016-09-10] MEDS: FUROSEMIDE 40MG TABLET PO SCH (08:16)
[2016-09-10] MEDS: MULTIVITAMINS,THER W-MINERALS TABLET PO SCH (08:16)
[2016-09-10] MEDS: DILTIAZEM HCL 180MG CAPSULE CD 24HR PO SCH (08:16)
[2016-09-10] MEDS: LOSARTAN POTASSIUM 50 MG TABLET PO SCH (08:16)
[2016-09-10] MEDS: FAMOTIDINE 20MG TABLET PO SCH (08:16)
[2016-09-10] MEDS: ENOXAPARIN 40MG/0.4ML SYR SUBCUT SCH (08:17)
[2016-09-10] MEDS: IPRATROPIUM/ALBUTEROL 0.5-3(2.5)MG/3ML NEB HHN PRN ×2 (10:23→13:14)
[2016-09-10 16:00] VITALS: BP 116/80
[2016-12-21] MEDS ORDERED: MIRT30TA PO (00:53)
[2016-12-21] MEDS ORDERED: METO-293 PO (00:55)
[2017-01-25] MEDS ORDERED: P20 PO (05:27)
[2017-01-25] MEDS ORDERED: LEVVL SQ (05:27)
[2017-01-25] MEDS ORDERED: DIPH25CA83 PO (05:27)
[2017-04-04] MEDS ORDERED: INSHUMSS SUBCUT (00:43)
== END 2016-09-10 17:10 | disposition home or self-care (01) ==
LOC: ER 18:50 → EDBEDREQ 19:42 → 5WST 19:54 → INTOOBSV 19:54 → ENRESERV 19:55 → EDBEDREQ 19:56 → 5WST 09-06 18:45
PROVIDERS: ADMIT Internal Medicine; ATTEND Internal Medicine
DX: J18.1 Lobar pneumonia, unspecified organism (principal); J44.0 Chronic obstructive pulmonary disease with (acute) lower respiratory infection; J45.901 Unspecified asthma with (acute) exacerbation; E11.9 Type 2 diabetes mellitus without complications; E66.09 Other obesity due to excess calories; I10 Essential (primary) hypertension; E78.5 Hyperlipidemia, unspecified; G47.33 Obstructive sleep apnea (adult) (pediatric); G89.29 Other chronic pain; M54.5 Low back pain; Z68.42 Body mass index [BMI] 45.0-49.9, adult; Z77.098 Contact with and (suspected) exposure to other hazardous, chiefly nonmedicinal, chemicals; Z90.49 Acquired absence of other specified parts of digestive tract; Z91.19 Patient's noncompliance with other medical treatment and regimen
CPT/HCPCS: 36415; 71010; 71275; 80048; 80053; 82962; 83605; 83880; 84484; 85025; 85610; 86431; 87040; 93005; 93306; 94640; 94660; 96361; 96365; 96366; 96367; 96372; 96375; 96376; 99285; A4216; G0378; J1650; J1815; J1940; J1956; J2270; J2405; J2543; J7040; J7050; J7512; Q9967; J7030; J7620; A4315

== ENCOUNTER 2016-11-02 22:09 | Inpatient (IN) | payer OTHER ==
[~2016-11-02] VITALS: Ht 167.6 cm; Wt 131.5 kg
[~2016-11-02 22:09] MED LIST changes: -ALBU6.7H INH; -ALBU90AE IH; -IOHEXOL-350 100 ML BOTTLE ONE; -SODIUM CHLORIDE 0.9% 10ML VIAL ONE
[2016-11-02] MEDS ORDERED: ALBUTEROL (0.083%) 2.5MG/3ML NEB HHN STA ×2 (22:42→23:08)
[2016-11-02] MEDS ORDERED: IPRATROPIUM BROMIDE (0.02%) 0.5MG/2.5ML NEB HHN STA (22:42)
[2016-11-02] MEDS ORDERED: METHYLPREDNISOLONE SOD SUCC 125 MG/2 ML VIAL IV STA (22:42)
[2016-11-02 23:08] LABS: CHLORIDE 112 mEq/L (98-107)
[2016-11-02] MEDS ORDERED: MORPHINE SULFATE 4 MG/ML CPJ (NOT FOR IM USE) IV STA (23:08)
[2016-11-02] MEDS ORDERED: ONDANSETRON HCL 4MG/2ML VIAL IV STA (23:08)
[2016-11-02 23:10] LABS: BASOPHILS % 0.8 % (0.0-2.0); EOSINOPHILS % 2.4 % (0.0-5.0); HEMATOCRIT. 41.4 % (42.0-52.0); HEMOGLOBIN. 13.5 g/dL (14.0-18.0); MEAN CORPUSCULAR HEMOGLOBIN 28.4 pg (28.0-32.0); MEAN CORPUSCULAR VOLUME 87.4 fL (80.0-94.0); MONOCYTES % 11.6 % (2.0-8.0); NEUTROPHILS % 51.2 % (40.0-76.0); PLATELET 376 x1000/uL (130-400); RED BLOOD CELL COUNT 4.74 mill/uL (4.7-6.1); RED CELL DISTRIBUTION WIDTH 22.2 % (11.6-14.6)
[2016-11-02 23:18] LABS: CARBON DIOXIDE 24 mEq/L (21-32); TROPONIN I < 0.02 ng/mL (0.00-0.04)
[2016-11-02 23:38] LABS: PLATELET ESTIMATE NORMAL
[2016-11-03] MEDS ORDERED: LEVOFLOXACIN 750MG PREMIX 150 ML IV ONE (00:15)
[2016-11-03] MEDS ORDERED: ALBUTEROL (0.083%) 2.5MG/3ML NEB HHN STA (00:38)
[2016-11-03 04:00] VITALS: BP 128/90
[2016-11-03 04:19] VITALS: BP 128/90
[2016-11-03] MEDS ORDERED: DEXTROSE 50% WATER 50ML SYRINGE IV PRN (05:00)
[2016-11-03] MEDS ORDERED: IPRATROPIUM/ALBUTEROL 0.5-3(2.5)MG/3ML NEB HHN PRN (05:00)
[2016-11-03] MEDS: MORPHINE SULFATE 4 MG/ML CPJ (NOT FOR IM USE) IV PRN ×5 (05:26→22:03)
[2016-11-03] MEDS: BLOOD SUGAR DIAGNOSTIC STRIP TEST SCH ×4 (06:25→20:37)
[2016-11-03] MEDS: INSULIN LISPRO 100 UNITS/ML SUBCUT SCH ×4 (06:28→21:08)
[2016-11-03] MEDS: METHYLPREDNISOLONE SOD SUCC 40 MG/ML VIAL IV SCH ×3 (06:33→21:02)
[2016-11-03 08:30] VITALS: BP 148/90
[2016-11-03] MEDS: ENOXAPARIN 30MG/0.3ML SYR SUBCUT SCH ×2 (08:56→21:03)
[2016-11-03] MEDS ORDERED: ENOXAPARIN 40MG/0.4ML SYR SUBCUT SCH (09:00)
[2016-11-03] MEDS: IPRATROPIUM/ALBUTEROL 0.5-3(2.5)MG/3ML NEB HHN SCH ×4 (09:01→20:47)
[2016-11-03 12:30] VITALS: BP 128/82
[2016-11-03 16:00] VITALS: BP 115/82
[2016-11-03 20:00] VITALS: BP 123/75
[2016-11-03] MEDS: DIPHENHYDRAMINE 25MG CAPSULE PO PRN (21:02)
[2016-11-03] MEDS: ATORVASTATIN CALCIUM 20MG TABLET PO SCH (21:02)
[2016-11-03] MEDS: TEMAZEPAM 15MG CAPSULE PO SCH (21:03)
[2016-11-04] VITALS (7 sets, daily range): BP systolic 115–132; BP diastolic 70–77
[2016-11-04] MEDS: IPRATROPIUM/ALBUTEROL 0.5-3(2.5)MG/3ML NEB HHN SCH ×6 (00:18→21:21)
[2016-11-04] MEDS: MORPHINE SULFATE 4 MG/ML CPJ (NOT FOR IM USE) IV PRN ×5 (03:04→20:12)
[2016-11-04] MEDS: BLOOD SUGAR DIAGNOSTIC STRIP TEST SCH ×4 (05:47→21:56)
[2016-11-04] MEDS: METHYLPREDNISOLONE SOD SUCC 40 MG/ML VIAL IV SCH ×3 (05:48→21:53)
[2016-11-04] MEDS: METOCLOPRAMIDE HCL 10MG TABLET PO SCH ×2 (05:48→18:05)
[2016-11-04] MEDS: OMEPRAZOLE 20MG CAPSULE EXTENDED RELEASE PO SCH (05:49)
[2016-11-04] MEDS: DIPHENHYDRAMINE 25MG CAPSULE PO PRN ×3 (05:51→22:04)
[2016-11-04] MEDS: INSULIN LISPRO 100 UNITS/ML SUBCUT SCH ×4 (06:36→22:11)
[2016-11-04] MEDS ORDERED: MEDICATION NOT ON FORMULARY EA (Omeprazole 40 MG) PO SCH (09:00)
[2016-11-04] MEDS ORDERED: [UNRECOGNIZED DRUG - OTHER] PO SCH (09:00)
[2016-11-04] MEDS: FUROSEMIDE 40MG TABLET PO SCH (09:31)
[2016-11-04] MEDS: MULTIVITAMINS,THER W-MINERALS TABLET PO SCH (09:31)
[2016-11-04] MEDS: LOSARTAN POTASSIUM 50 MG TABLET PO SCH (09:31)
[2016-11-04] MEDS: DILTIAZEM HCL 180MG CAPSULE CD 24HR PO SCH (09:31)
[2016-11-04] MEDS: ENOXAPARIN 30MG/0.3ML SYR SUBCUT SCH ×2 (09:32→21:57)
[2016-11-04] MEDS: TEMAZEPAM 15MG CAPSULE PO SCH (21:53)
[2016-11-04] MEDS: ATORVASTATIN CALCIUM 20MG TABLET PO SCH (21:53)
[2016-11-05] VITALS: BP 110/54
[2016-11-05] MEDS: IPRATROPIUM/ALBUTEROL 0.5-3(2.5)MG/3ML NEB HHN SCH ×6 (00:19→20:42)
[2016-11-05] MEDS: MORPHINE SULFATE 4 MG/ML CPJ (NOT FOR IM USE) IV PRN ×6 (00:29→23:12)
[2016-11-05 04:00] VITALS: BP 131/78
[2016-11-05] MEDS: METHYLPREDNISOLONE SOD SUCC 40 MG/ML VIAL IV SCH ×3 (06:23→23:05)
[2016-11-05] MEDS: METOCLOPRAMIDE HCL 10MG TABLET PO SCH ×2 (06:23→18:25)
[2016-11-05] MEDS: OMEPRAZOLE 20MG CAPSULE EXTENDED RELEASE PO SCH (06:23)
[2016-11-05] MEDS: DIPHENHYDRAMINE 25MG CAPSULE PO PRN ×2 (06:25→20:52)
[2016-11-05] MEDS: BLOOD SUGAR DIAGNOSTIC STRIP TEST SCH ×4 (06:28→20:53)
[2016-11-05] MEDS: INSULIN LISPRO 100 UNITS/ML SUBCUT SCH ×4 (06:39→21:01)
[2016-11-05 07:10] LABS: BASOPHILS % 0.3 % (0.0-2.0); EOSINOPHILS % 0.1 % (0.0-5.0); HEMATOCRIT. 37.9 % (42.0-52.0); HEMOGLOBIN. 12.2 g/dL (14.0-18.0); LYMPHOCYTES % 7.1 % (20.0-50.0); MEAN CORPUSCULAR HEMOGLOBIN 27.8 pg (28.0-32.0); MEAN CORPUSCULAR VOLUME 86.5 fL (80.0-94.0); MEAN PLATELET VOLUME 9.7 fl (7.4-10.4); MONOCYTES % 3.1 % (2.0-8.0); NEUTROPHILS % 89.4 % (40.0-76.0); PLATELET 407 x1000/uL (130-400); RED BLOOD CELL COUNT 4.38 mill/uL (4.7-6.1); RED CELL DISTRIBUTION WIDTH 21.4 % (11.6-14.6)
[2016-11-05 07:49] LABS: CARBON DIOXIDE 30 mEq/L (21-32); CHLORIDE 101 mEq/L (98-107)
[2016-11-05] MEDS: ENOXAPARIN 30MG/0.3ML SYR SUBCUT SCH ×2 (09:31→20:56)
[2016-11-05] MEDS: DILTIAZEM HCL 180MG CAPSULE CD 24HR PO SCH (09:31)
[2016-11-05] MEDS: LOSARTAN POTASSIUM 50 MG TABLET PO SCH (09:31)
[2016-11-05] MEDS: FUROSEMIDE 40MG TABLET PO SCH (09:31)
[2016-11-05] MEDS: MULTIVITAMINS,THER W-MINERALS TABLET PO SCH (09:31)
[2016-11-05 12:00] VITALS: BP 114/85
[2016-11-05 16:00] VITALS: BP 114/71
[2016-11-05 20:00] VITALS: BP 110/63
[2016-11-05] MEDS: TEMAZEPAM 15MG CAPSULE PO SCH (20:51)
[2016-11-05] MEDS: ATORVASTATIN CALCIUM 20MG TABLET PO SCH (20:51)
[2016-11-05] MEDS ORDERED: INSULIN LISPRO 100 UNITS/ML SUBCUT NR (21:45)
[2016-11-06] VITALS: BP 108/63
[2016-11-06] MEDS: IPRATROPIUM/ALBUTEROL 0.5-3(2.5)MG/3ML NEB HHN SCH ×3 (00:32→08:11)
[2016-11-06 03:22] VITALS: BP 134/76
[2016-11-06] MEDS: MORPHINE SULFATE 4 MG/ML CPJ (NOT FOR IM USE) IV PRN ×3 (03:30→12:56)
[2016-11-06 04:00] VITALS: BP 134/76
[2016-11-06] MEDS: BLOOD SUGAR DIAGNOSTIC STRIP TEST SCH ×2 (06:38→12:33)
[2016-11-06] MEDS: METHYLPREDNISOLONE SOD SUCC 40 MG/ML VIAL IV SCH ×2 (06:48→14:55)
[2016-11-06] MEDS: METOCLOPRAMIDE HCL 10MG TABLET PO SCH (06:51)
[2016-11-06] MEDS: OMEPRAZOLE 20MG CAPSULE EXTENDED RELEASE PO SCH (06:51)
[2016-11-06] MEDS: INSULIN LISPRO 100 UNITS/ML SUBCUT SCH ×2 (06:58→12:57)
[2016-11-06] MEDS: LOSARTAN POTASSIUM 50 MG TABLET PO SCH (08:20)
[2016-11-06] MEDS: MULTIVITAMINS,THER W-MINERALS TABLET PO SCH (08:20)
[2016-11-06] MEDS: DILTIAZEM HCL 180MG CAPSULE CD 24HR PO SCH (08:20)
[2016-11-06] MEDS: ENOXAPARIN 30MG/0.3ML SYR SUBCUT SCH (08:20)
[2016-11-06] MEDS: FUROSEMIDE 40MG TABLET PO SCH (09:44)
[2016-11-06] MEDS: DIPHENHYDRAMINE 25MG CAPSULE PO PRN (14:55)
[2016-11-06 15:13] VITALS: BP 124/70
[2016-12-21] MEDS ORDERED: MIRT30TA PO (00:53)
[2016-12-21] MEDS ORDERED: METO-293 PO (00:55)
== END 2016-11-06 15:50 | disposition home or self-care (01) | DRG 189 ==
LOC: ER 22:09 → OBSVTOIN 11-03 00:25 → 5WST 11-03 00:25 → INTOOBSV 11-03 00:25 → EDBEDREQ 11-03 00:38 → ENRESERV 11-03 02:03
PROVIDERS: ADMIT Internal Medicine; ATTEND Internal Medicine
PROC: 5A09357 Assistance with Respiratory Ventilation, Less than 24 Consecutive Hours, Continuous Positive Airway Pressure (ICD-10-PCS; principal; 2016-11-02)
DX: J96.90 Respiratory failure, unspecified, unspecified whether with hypoxia or hypercapnia (principal); I11.0 Hypertensive heart disease with heart failure; J44.1 Chronic obstructive pulmonary disease with (acute) exacerbation; J45.901 Unspecified asthma with (acute) exacerbation; I50.9 Heart failure, unspecified; Z68.42 Body mass index [BMI] 45.0-49.9, adult; J98.11 Atelectasis; E78.5 Hyperlipidemia, unspecified; E66.01 Morbid (severe) obesity due to excess calories; K21.9 Gastro-esophageal reflux disease without esophagitis; M51.9 Unspecified thoracic, thoracolumbar and lumbosacral intervertebral disc disorder; E11.9 Type 2 diabetes mellitus without complications; E78.00 Pure hypercholesterolemia, unspecified; M54.5 Low back pain; G47.00 Insomnia, unspecified; G47.33 Obstructive sleep apnea (adult) (pediatric); G89.29 Other chronic pain; Z79.52 Long term (current) use of systemic steroids; Z79.899 Other long term (current) drug therapy; Z87.01 Personal history of pneumonia (recurrent); Z90.49 Acquired absence of other specified parts of digestive tract; Z88.6 Allergy status to analgesic agent; Z79.4 Long term (current) use of insulin; Z88.0 Allergy status to penicillin
CPT/HCPCS: 36415; 71010; 76881; 80048; 80053; 82962; 83605; 83880; 84484; 85025; 85610; 87040; 93005; 94640; 94660; 96365; 96366; 96375; 99291; J1650; J1815; J1956; J2270; J2405; J2920; J2930; J7611; J7620; J8597; Q0163

== ENCOUNTER 2016-11-16 17:00 | Inpatient (IN) | payer OTHER ==
[~2016-11-16] VITALS: Ht 167.6 cm; Wt 128.8 kg
[2016-11-16] MEDS ORDERED: NITROGLYCERIN 0.4MG TABLET SL SL PRN (18:30)
[2016-11-16] MEDS ORDERED: ASPIRIN 81MG TABLET PO ONE (18:30)
[2016-11-16 18:58] LABS: BASOPHILS % 0.3 % (0.0-2.0); HEMOGLOBIN. 13.3 g/dL (14.0-18.0); LYMPHOCYTES % 10.1 % (20.0-50.0); MEAN CORPUSCULAR HEMOGLOBIN 28.1 pg (28.0-32.0); MEAN CORPUSCULAR VOLUME 86.5 fL (80.0-94.0); MEAN PLATELET VOLUME 9.7 fl (7.4-10.4); MONOCYTES % 4.9 % (2.0-8.0); NEUTROPHILS % 84.7 % (40.0-76.0); PLATELET 248 x1000/uL (130-400); RED BLOOD CELL COUNT 4.74 mill/uL (4.7-6.1); RED CELL DISTRIBUTION WIDTH 21.8 % (11.6-14.6)
[2016-11-16 19:01] LABS: PROTHROMBIN TIME 10.2 sec (9.4-11.6)
[2016-11-16 19:03] LABS: CHLORIDE 109 mEq/L (98-107)
[2016-11-16 19:10] LABS: CARBON DIOXIDE 32 mEq/L (21-32)
[2016-11-16 19:12] LABS: TROPONIN I < 0.02 ng/mL (0.00-0.04)
[2016-11-16 20:13] LABS: CLARITY URINE CLEAR (CLEAR); COLOR URINE YELLOW (YELLOW); GLUCOSE URINE 3+ (NEGATIVE); KETONES URINE NEGATIVE (NEGATIVE); LEUKOCYTE ESTERASE URINE NEGATIVE (NEGATIVE); NITRITE URINE NEGATIVE (NEGATIVE); OCCULT BLOOD URINE NEGATIVE (NEGATIVE); PROTEIN URINE NEGATIVE (NEGATIVE); SPECIFIC GRAVITY URINE 1.029 (1.005-1.030)
[2016-11-16] MEDS ORDERED: SODIUM CHLORIDE 0.9% 1,000 ML IV SCH (20:17)
[2016-11-16 20:27] LABS: *AMPHETAMINES SCREEN URINE NEGATIVE (NEGATIVE); *BARBITURATES SCREEN URINE NEGATIVE (NEGATIVE); *BENZODIAZEPINES SCREEN URINE NEGATIVE (NEGATIVE); *COCAINE SCREEN URINE NEGATIVE (NEGATIVE); CANNABINOID URINE SCREEN NEGATIVE (NEGATIVE); METHADONE URINE SCREEN NEGATIVE (NEGATIVE); OPIATES URINE SCREEN NEGATIVE (NEGATIVE); PHENCYCLIDINE URINE SCREEN NEGATIVE (NEGATIVE)
[2016-11-16] MEDS ORDERED: ACETAMINOPHEN 325MG TABLET PO PRN ×2 (20:30→22:45)
[2016-11-16] MEDS ORDERED: IBUPROFEN 600MG TABLET PO PRN (20:30)
[2016-11-16 21:15] VITALS: BP 131/87
[2016-11-16 21:44] VITALS: BP 137/87
[2016-11-16] MEDS ORDERED: IPRATROPIUM/ALBUTEROL 0.5-3(2.5)MG/3ML NEB HHN PRN (22:45)
[2016-11-16] MEDS ORDERED: ENOXAPARIN 40MG/0.4ML SYR SUBCUT SCH (22:45)
[2016-11-16] MEDS: TEMAZEPAM 15MG CAPSULE PO SCH (23:59)
[2016-11-17] VITALS: BP 137/82
[2016-11-17] MEDS: IPRATROPIUM/ALBUTEROL 0.5-3(2.5)MG/3ML NEB HHN SCH ×6 (00:36→21:21)
[2016-11-17] MEDS ORDERED: DEXTROSE 50% WATER 50ML SYRINGE IV PRN (02:15)
[2016-11-17 04:00] VITALS: BP 131/78
[2016-11-17] MEDS: HYDROCODONE/ACETAMINOPHEN 5/325MG TABLET PO PRN ×4 (04:30→17:34)
[2016-11-17 06:11] LABS: HEMATOCRIT. 37.1 % (42.0-52.0); MEAN CORPUSCULAR VOLUME 86.5 fL (80.0-94.0); MEAN PLATELET VOLUME 10.7 fl (7.4-10.4); PLATELET 218 x1000/uL (130-400); RED BLOOD CELL COUNT 4.29 mill/uL (4.7-6.1); RED CELL DISTRIBUTION WIDTH 21.6 % (11.6-14.6)
[2016-11-17] MEDS: PANTOPRAZOLE 40MG DR TABLET PO SCH ×2 (06:29→22:19)
[2016-11-17] MEDS: SODIUM CHLORIDE 0.9% INJ 3ML FLUSH IVF SCH ×3 (06:30→22:26)
[2016-11-17] MEDS: BLOOD SUGAR DIAGNOSTIC STRIP TEST SCH ×4 (06:30→21:00)
[2016-11-17 06:41] LABS: CARBON DIOXIDE 29 mEq/L (21-32); CHLORIDE 108 mEq/L (98-107); HDL CHOLESTEROL 57 mg/dL (40-59); LDL CHOLESTEROL 62 mg/dL (5-100); TROPONIN I < 0.02 ng/mL (0.00-0.04)
[2016-11-17] MEDS: INSULIN LISPRO 100 UNITS/ML SUBCUT SCH ×4 (06:54→22:26)
[2016-11-17 08:00] VITALS: BP 124/67
[2016-11-17] MEDS: FUROSEMIDE 40MG TABLET PO SCH (08:52)
[2016-11-17] MEDS: ENOXAPARIN 30MG/0.3ML SYR SUBCUT SCH ×2 (08:52→22:22)
[2016-11-17] MEDS: DILTIAZEM HCL 180MG CAPSULE CD 24HR PO SCH (08:53)
[2016-11-17] MEDS: PREDNISONE 20MG TABLET PO SCH (08:53)
[2016-11-17] MEDS: LOSARTAN POTASSIUM 50 MG TABLET PO SCH (08:53)
[2016-11-17] MEDS ORDERED: ASPIRIN 325MG EC TABLET PO SCH (09:00)
[2016-11-17] MEDS: INSULIN DETEMIR UD 100 UNITS/ML SYR SUBCUT SCH ×2 (10:57→22:25)
[2016-11-17 12:00] VITALS: BP 108/61
[2016-11-17 12:57] LABS: PLATELET ESTIMATE NORMAL
[2016-11-17 16:00] VITALS: BP 104/72
[2016-11-17 20:00] VITALS: BP 111/84
[2016-11-17] MEDS: MORPHINE SULFATE 4 MG/ML CPJ (NOT FOR IM USE) IV PRN (20:04)
[2016-11-17] MEDS: MONTELUKAST SODIUM 10MG TABLET PO SCH (22:19)
[2016-11-17] MEDS: ATORVASTATIN CALCIUM 40MG TABLET PO SCH (22:19)
[2016-11-17] MEDS: TEMAZEPAM 15MG CAPSULE PO SCH (22:19)
[2016-11-18] VITALS: BP 155/76
[2016-11-18] MEDS: IPRATROPIUM/ALBUTEROL 0.5-3(2.5)MG/3ML NEB HHN SCH ×6 (01:31→20:14)
[2016-11-18] MEDS: MORPHINE SULFATE 4 MG/ML CPJ (NOT FOR IM USE) IV PRN ×4 (02:01→21:16)
[2016-11-18 04:00] VITALS: BP 112/63
[2016-11-18] MEDS: PANTOPRAZOLE 40MG DR TABLET PO SCH (05:38)
[2016-11-18] MEDS: SODIUM CHLORIDE 0.9% INJ 3ML FLUSH IVF SCH ×3 (05:38→21:22)
[2016-11-18] MEDS: BLOOD SUGAR DIAGNOSTIC STRIP TEST SCH ×4 (05:41→21:22)
[2016-11-18] MEDS: INSULIN LISPRO 100 UNITS/ML SUBCUT SCH ×4 (05:41→21:00)
[2016-11-18 08:00] VITALS: BP 119/76
[2016-11-18] MEDS: LOSARTAN POTASSIUM 50 MG TABLET PO SCH (09:55)
[2016-11-18] MEDS: FUROSEMIDE 40MG TABLET PO SCH (09:55)
[2016-11-18] MEDS: DILTIAZEM HCL 180MG CAPSULE CD 24HR PO SCH (09:55)
[2016-11-18] MEDS: PREDNISONE 20MG TABLET PO SCH (09:55)
[2016-11-18] MEDS: INSULIN DETEMIR UD 100 UNITS/ML SYR SUBCUT SCH ×2 (10:03→21:22)
[2016-11-18] MEDS: ENOXAPARIN 30MG/0.3ML SYR SUBCUT SCH ×2 (10:05→21:15)
[2016-11-18 11:36] VITALS: BP 94/65
[2016-11-18 17:10] VITALS: BP 105/70
[2016-11-18 20:00] VITALS: BP 107/79
[2016-11-18] MEDS: MONTELUKAST SODIUM 10MG TABLET PO SCH (21:15)
[2016-11-18] MEDS: ATORVASTATIN CALCIUM 40MG TABLET PO SCH (21:15)
[2016-11-18] MEDS: TEMAZEPAM 15MG CAPSULE PO SCH (21:15)
[2016-11-19] VITALS: BP 105/66
[2016-11-19] MEDS: IPRATROPIUM/ALBUTEROL 0.5-3(2.5)MG/3ML NEB HHN SCH ×5 (00:16→20:42)
[2016-11-19] MEDS: MORPHINE SULFATE 4 MG/ML CPJ (NOT FOR IM USE) IV PRN ×4 (03:30→21:53)
[2016-11-19 04:00] VITALS: BP 116/68
[2016-11-19] MEDS: BLOOD SUGAR DIAGNOSTIC STRIP TEST SCH ×4 (06:58→20:36)
[2016-11-19] MEDS: SODIUM CHLORIDE 0.9% INJ 3ML FLUSH IVF SCH ×3 (06:58→21:53)
[2016-11-19] MEDS: INSULIN LISPRO 100 UNITS/ML SUBCUT SCH ×4 (06:59→21:57)
[2016-11-19] MEDS: FAMOTIDINE 20MG TABLET PO SCH ×2 (09:00→18:00)
[2016-11-19] MEDS: ENOXAPARIN 30MG/0.3ML SYR SUBCUT SCH ×2 (09:34→20:36)
[2016-11-19] MEDS: PREDNISONE 20MG TABLET PO SCH ×2 (09:34→18:15)
[2016-11-19] MEDS: FUROSEMIDE 40MG TABLET PO SCH (09:34)
[2016-11-19] MEDS: LOSARTAN POTASSIUM 50 MG TABLET PO SCH (09:34)
[2016-11-19] MEDS: DILTIAZEM HCL 180MG CAPSULE CD 24HR PO SCH (09:34)
[2016-11-19] MEDS: INSULIN DETEMIR UD 100 UNITS/ML SYR SUBCUT SCH ×2 (10:28→21:57)
[2016-11-19 12:00] VITALS: BP 112/74
[2016-11-19 12:16] LABS: BASOPHILS % 0.4 % (0.0-2.0); EOSINOPHILS % 0.8 % (0.0-5.0); HEMATOCRIT. 39.2 % (42.0-52.0); HEMOGLOBIN. 12.8 g/dL (14.0-18.0); LYMPHOCYTES % 17.4 % (20.0-50.0); MEAN CORPUSCULAR HEMOGLOBIN 28.5 pg (28.0-32.0); MEAN CORPUSCULAR VOLUME 87.3 fL (80.0-94.0); MEAN PLATELET VOLUME 9.1 fl (7.4-10.4); MONOCYTES % 3.7 % (2.0-8.0); NEUTROPHILS % 77.7 % (40.0-76.0); PLATELET 201 x1000/uL (130-400); RED BLOOD CELL COUNT 4.49 mill/uL (4.7-6.1)
[2016-11-19 12:20] LABS: CHLORIDE 99 mEq/L (98-107)
[2016-11-19 12:26] LABS: CARBON DIOXIDE 33 mEq/L (21-32)
[2016-11-19 16:00] VITALS: BP 103/61
[2016-11-19 18:00] VITALS: BP 103/61
[2016-11-19 20:00] VITALS: BP 101/68
[2016-11-19] MEDS: ATORVASTATIN CALCIUM 40MG TABLET PO SCH (20:35)
[2016-11-19] MEDS: MONTELUKAST SODIUM 10MG TABLET PO SCH (20:35)
[2016-11-19] MEDS: TEMAZEPAM 15MG CAPSULE PO SCH (21:52)
[2016-11-20] VITALS (7 sets, daily range): BP systolic 113–137; BP diastolic 69–86
[2016-11-20] MEDS: IPRATROPIUM/ALBUTEROL 0.5-3(2.5)MG/3ML NEB HHN SCH ×5 (00:47→23:49)
[2016-11-20] MEDS: MORPHINE SULFATE 4 MG/ML CPJ (NOT FOR IM USE) IV PRN ×4 (03:59→21:58)
[2016-11-20] MEDS: SODIUM CHLORIDE 0.9% INJ 3ML FLUSH IVF SCH ×2 (06:40→16:58)
[2016-11-20] MEDS: BLOOD SUGAR DIAGNOSTIC STRIP TEST SCH ×4 (06:40→21:41)
[2016-11-20] MEDS: PREDNISONE 20MG TABLET PO SCH ×2 (06:40→16:58)
[2016-11-20] MEDS: INSULIN LISPRO 100 UNITS/ML SUBCUT SCH ×4 (06:42→21:59)
[2016-11-20] MEDS: FAMOTIDINE 20MG TABLET PO SCH ×2 (09:52→16:58)
[2016-11-20] MEDS: FUROSEMIDE 40MG TABLET PO SCH (09:53)
[2016-11-20] MEDS: LOSARTAN POTASSIUM 50 MG TABLET PO SCH (09:53)
[2016-11-20] MEDS: DILTIAZEM HCL 180MG CAPSULE CD 24HR PO SCH (09:53)
[2016-11-20] MEDS: ENOXAPARIN 30MG/0.3ML SYR SUBCUT SCH ×2 (09:55→21:57)
[2016-11-20] MEDS: INSULIN DETEMIR UD 100 UNITS/ML SYR SUBCUT SCH ×2 (09:56→22:06)
[2016-11-20] MEDS: TEMAZEPAM 15MG CAPSULE PO SCH (21:57)
[2016-11-20] MEDS: MONTELUKAST SODIUM 10MG TABLET PO SCH (21:57)
[2016-11-20] MEDS: ATORVASTATIN CALCIUM 40MG TABLET PO SCH (21:57)
[2016-11-21] VITALS: BP 142/74
[2016-11-21] MEDS: IPRATROPIUM/ALBUTEROL 0.5-3(2.5)MG/3ML NEB HHN SCH ×3 (03:29→12:00)
[2016-11-21] MEDS: MORPHINE SULFATE 4 MG/ML CPJ (NOT FOR IM USE) IV PRN ×2 (03:34→09:58)
[2016-11-21 04:00] VITALS: BP 117/73
[2016-11-21] MEDS: BLOOD SUGAR DIAGNOSTIC STRIP TEST SCH ×2 (06:02→12:20)
[2016-11-21] MEDS: PREDNISONE 20MG TABLET PO SCH (06:17)
[2016-11-21] MEDS: INSULIN LISPRO 100 UNITS/ML SUBCUT SCH ×2 (06:19→13:36)
[2016-11-21] MEDS: SODIUM CHLORIDE 0.9% INJ 3ML FLUSH IVF SCH ×2 (06:20→06:21)
[2016-11-21 08:00] VITALS: BP 101/79
[2016-11-21] MEDS: DILTIAZEM HCL 180MG CAPSULE CD 24HR PO SCH (08:28)
[2016-11-21] MEDS: FUROSEMIDE 40MG TABLET PO SCH (08:28)
[2016-11-21] MEDS: FAMOTIDINE 20MG TABLET PO SCH (08:28)
[2016-11-21] MEDS: LOSARTAN POTASSIUM 50 MG TABLET PO SCH (08:29)
[2016-11-21] MEDS: ENOXAPARIN 30MG/0.3ML SYR SUBCUT SCH (08:29)
[2016-11-21] MEDS: INSULIN DETEMIR UD 100 UNITS/ML SYR SUBCUT SCH (09:59)
[2016-11-21 12:00] VITALS: BP 106/74
[2016-11-21 14:10] VITALS: BP 122/78
[2016-12-21] MEDS ORDERED: MIRT30TA PO (00:53)
[2016-12-21] MEDS ORDERED: METO-293 PO (00:55)
== END 2016-11-21 15:31 | disposition home or self-care (01) | DRG 189 ==
LOC: ER 19:29 → 5WST 20:21 → ENRESERV 20:32
PROVIDERS: ADMIT Internal Medicine; ATTEND Internal Medicine
DX: J96.90 Respiratory failure, unspecified, unspecified whether with hypoxia or hypercapnia (principal); I11.0 Hypertensive heart disease with heart failure; I50.9 Heart failure, unspecified; J44.0 Chronic obstructive pulmonary disease with (acute) lower respiratory infection; Z68.42 Body mass index [BMI] 45.0-49.9, adult; E66.01 Morbid (severe) obesity due to excess calories; G89.29 Other chronic pain; M54.5 Low back pain; E11.9 Type 2 diabetes mellitus without complications; E78.00 Pure hypercholesterolemia, unspecified; J20.9 Acute bronchitis, unspecified; M06.9 Rheumatoid arthritis, unspecified; Z90.49 Acquired absence of other specified parts of digestive tract; Z79.4 Long term (current) use of insulin; Z88.6 Allergy status to analgesic agent; Z79.899 Other long term (current) drug therapy
CPT/HCPCS: 36415; 71010; 80048; 80053; 80061; 80305; 81001; 82962; 83880; 84484; 85025; 85610; 86430; 86431; 93005; 94640; 94664; 96360; 99285; J1650; J1815; J2270; J7030; J7512; J7620

== ENCOUNTER 2016-12-09 11:06 | Inpatient (IN) | payer OTHER ==
[~2016-12-09] VITALS: Ht 167.6 cm; Wt 129.7 kg
[2016-12-09] MEDS ORDERED: MORPHINE SULFATE 4 MG/ML CPJ (NOT FOR IM USE) IV STA (12:08)
[2016-12-09] MEDS ORDERED: ONDANSETRON HCL 4MG/2ML VIAL IV STA (12:08)
[2016-12-09] MEDS ORDERED: METHYLPREDNISOLONE SOD SUCC 125 MG/2 ML VIAL IV STA (12:08)
[2016-12-09] MEDS ORDERED: IPRATROPIUM/ALBUTEROL 0.5-3(2.5)MG/3ML NEB HHN ONE ×2 (12:15→16:30)
[2016-12-09 12:25] LABS: HEMATOCRIT. 40.6 % (42.0-52.0); HEMOGLOBIN. 13.3 g/dL (14.0-18.0); LYMPHOCYTES % 40.2 % (20.0-50.0); MEAN CORPUSCULAR HEMOGLOBIN 28.8 pg (28.0-32.0); MEAN CORPUSCULAR VOLUME 87.9 fL (80.0-94.0); MEAN PLATELET VOLUME 8.6 fl (7.4-10.4); MONOCYTES % 8.8 % (2.0-8.0); PLATELET 416 x1000/uL (130-400); RED BLOOD CELL COUNT 4.62 mill/uL (4.7-6.1); RED CELL DISTRIBUTION WIDTH 19.7 % (11.6-14.6)
[2016-12-09 12:37] LABS: PARTIAL THROMBOPLASTIN TIME 26.2 sec (23.4-31.0); PROTHROMBIN TIME 10.8 sec (9.4-11.6)
[2016-12-09 12:41] LABS: CARBON DIOXIDE 27 mEq/L (21-32); CHLORIDE 105 mEq/L (98-107); TROPONIN I < 0.02 ng/mL (0.00-0.04)
[2016-12-09 13:00] LABS: BG BASE EXCESS 1.5 mmol/L (-2.0-2.0); BG CARBOXYHEMOGLOBIN 0.8 % (0.5-1.5); BG DEOXYHEMOGLOBIN 1.4 % (0.0-5.0); BG FRACTION INSPIRED OXYGEN 60; BG HCO3 ACT 26.7 mmol/L (22.0-26.0); BG METHEMOGLOBIN 0.3 % (0.0-1.5); BG OXYGEN SATURATION 98.6 % (92.0-98.5); BG OXYHEMOGLOBIN 97.5 % (94.0-97.0); BG PCO2 44.1 mmHg (35.0-45.0); BG PO2 137.3 mmHg (75.0-100.0); BG SAMPLE SITE LEFT RADIAL; BG TOTAL HEMOGLOBIN 13.8 g/dL (12.0-18.0)
[2016-12-09] MEDS ORDERED: ONDANSETRON HCL 4MG/2ML VIAL IV ONE (16:30)
[2016-12-09] MEDS ORDERED: MORPHINE SULFATE 4 MG/ML CPJ (NOT FOR IM USE) IV ONE (16:30)
[2016-12-09 18:00] VITALS: BP 135/81
[2016-12-09] MEDS: DILTIAZEM HCL 180MG CAPSULE CD 24HR PO SCH (19:00)
[2016-12-09] MEDS ORDERED: DEXTROSE 50% WATER 50ML SYRINGE IV PRN (19:00)
[2016-12-09 20:00] VITALS: BP 114/77
[2016-12-09] MEDS: ATORVASTATIN CALCIUM 20MG TABLET PO SCH (21:11)
[2016-12-09] MEDS: ENOXAPARIN 30MG/0.3ML SYR SUBCUT SCH (21:11)
[2016-12-09] MEDS: MORPHINE SULFATE 4 MG/ML CPJ (NOT FOR IM USE) IV PRN (21:12)
[2016-12-09] MEDS: BLOOD SUGAR DIAGNOSTIC STRIP TEST SCH (21:59)
[2016-12-09] MEDS: DIPHENHYDRAMINE 50MG/ML VIAL IV PRN (22:22)
[2016-12-09] MEDS: METHYLPREDNISOLONE SOD SUCC 40 MG/ML VIAL IV SCH (22:22)
[2016-12-09] MEDS: INSULIN LISPRO 100 UNITS/ML SUBCUT SCH (22:25)
[2016-12-09] MEDS ORDERED: INSULIN LISPRO 100 UNITS/ML SUBCUT NR (22:30)
[2016-12-09] MEDS: TEMAZEPAM 15MG CAPSULE PO PRN (22:48)
[2016-12-09] MEDS ORDERED: INSULIN DETEMIR UD 100 UNITS/ML SYR SUBCUT NR (23:30)
[2016-12-10] VITALS: BP 132/80
[2016-12-10] MEDS: MORPHINE SULFATE 4 MG/ML CPJ (NOT FOR IM USE) IV PRN ×5 (01:23→19:58)
[2016-12-10 04:00] VITALS: BP 117/73
[2016-12-10] MEDS: IPRATROPIUM/ALBUTEROL 0.5-3(2.5)MG/3ML NEB HHN SCH ×6 (04:00→21:11)
[2016-12-10] MEDS: METHYLPREDNISOLONE SOD SUCC 40 MG/ML VIAL IV SCH ×3 (05:36→22:11)
[2016-12-10] MEDS: BLOOD SUGAR DIAGNOSTIC STRIP TEST SCH ×4 (06:07→21:10)
[2016-12-10 08:00] VITALS: BP 126/80
[2016-12-10] MEDS: LOSARTAN POTASSIUM 50 MG TABLET PO SCH (08:34)
[2016-12-10] MEDS: OMEPRAZOLE 20MG CAPSULE EXTENDED RELEASE PO SCH (08:34)
[2016-12-10] MEDS: DILTIAZEM HCL 180MG CAPSULE CD 24HR PO SCH (08:35)
[2016-12-10] MEDS: ENOXAPARIN 30MG/0.3ML SYR SUBCUT SCH ×2 (08:36→21:09)
[2016-12-10] MEDS: INSULIN LISPRO 100 UNITS/ML SUBCUT SCH ×4 (08:40→21:09)
[2016-12-10] MEDS ORDERED: ENOXAPARIN 40MG/0.4ML SYR SUBCUT SCH (09:00)
[2016-12-10] MEDS ORDERED: INFLUENZA VIRUS VACCINE 0.5ML SYR IM ONE (12:00)
[2016-12-10 12:11] VITALS: BP 121/72
[2016-12-10] MEDS: DIPHENHYDRAMINE 50MG/ML VIAL IV PRN ×2 (14:25→22:18)
[2016-12-10 16:00] VITALS: BP 101/69
[2016-12-10] MEDS: MONTELUKAST SODIUM 10MG TABLET PO SCH (17:37)
[2016-12-10 20:01] VITALS: BP 100/55
[2016-12-10] MEDS: ATORVASTATIN CALCIUM 20MG TABLET PO SCH (21:09)
[2016-12-10] MEDS ORDERED: INSULIN DETEMIR UD 100 UNITS/ML SYR SUBCUT SCH (22:00)
[2016-12-10] MEDS: TEMAZEPAM 15MG CAPSULE PO PRN (22:11)
[2016-12-11 00:11] VITALS: BP 103/69
[2016-12-11] MEDS: MORPHINE SULFATE 4 MG/ML CPJ (NOT FOR IM USE) IV PRN ×6 (00:16→21:32)
[2016-12-11] MEDS: IPRATROPIUM/ALBUTEROL 0.5-3(2.5)MG/3ML NEB HHN SCH ×6 (00:53→20:45)
[2016-12-11 04:00] VITALS: BP 124/76
[2016-12-11] MEDS: DIPHENHYDRAMINE 50MG/ML VIAL IV PRN ×3 (05:59→21:33)
[2016-12-11] MEDS: METHYLPREDNISOLONE SOD SUCC 40 MG/ML VIAL IV SCH ×3 (05:59→21:33)
[2016-12-11 06:28] LABS: CARBON DIOXIDE 27 mEq/L (21-32); CHLORIDE 101 mEq/L (98-107)
[2016-12-11 06:58] LABS: HEMATOCRIT. 35.9 % (42.0-52.0); HEMOGLOBIN. 11.4 g/dL (14.0-18.0); MEAN CORPUSCULAR VOLUME 87.8 fL (80.0-94.0); MEAN PLATELET VOLUME 9.1 fl (7.4-10.4); PLATELET 431 x1000/uL (130-400); RED BLOOD CELL COUNT 4.09 mill/uL (4.7-6.1); RED CELL DISTRIBUTION WIDTH 19.5 % (11.6-14.6)
[2016-12-11] MEDS: BLOOD SUGAR DIAGNOSTIC STRIP TEST SCH ×4 (07:40→20:39)
[2016-12-11 08:00] VITALS: BP 115/78
[2016-12-11] MEDS: OMEPRAZOLE 20MG CAPSULE EXTENDED RELEASE PO SCH (08:45)
[2016-12-11] MEDS: DILTIAZEM HCL 180MG CAPSULE CD 24HR PO SCH (08:45)
[2016-12-11] MEDS: LOSARTAN POTASSIUM 50 MG TABLET PO SCH (08:46)
[2016-12-11] MEDS: ENOXAPARIN 30MG/0.3ML SYR SUBCUT SCH ×2 (08:46→20:37)
[2016-12-11] MEDS: INSULIN LISPRO 100 UNITS/ML SUBCUT SCH ×4 (08:50→20:39)
[2016-12-11] MEDS: INSULIN DETEMIR UD 100 UNITS/ML SYR SUBCUT SCH ×2 (10:57→21:40)
[2016-12-11 12:00] VITALS: BP 107/77
[2016-12-11 16:00] VITALS: BP 122/66
[2016-12-11] MEDS: MONTELUKAST SODIUM 10MG TABLET PO SCH (17:30)
[2016-12-11 18:36] LABS: ATYPICAL LYMPHOCYTES 2; PLATELET ESTIMATE SLIGHTLY INCREASED
[2016-12-11] MEDS: MIRTAZAPINE 30MG TABLET PO SCH (20:37)
[2016-12-11] MEDS: ATORVASTATIN CALCIUM 20MG TABLET PO SCH (20:37)
[2016-12-11 20:40] VITALS: BP 122/72
[2016-12-11] MEDS: THEOPHYLLINE ANHYDROUS 80 MG/15 ML 120ML PO SCH (21:32)
[2016-12-11] MEDS: TEMAZEPAM 15MG CAPSULE PO PRN (23:20)
[2016-12-12] VITALS: BP 108/76
[2016-12-12] MEDS: IPRATROPIUM/ALBUTEROL 0.5-3(2.5)MG/3ML NEB HHN SCH ×6 (00:46→20:50)
[2016-12-12] MEDS: MORPHINE SULFATE 4 MG/ML CPJ (NOT FOR IM USE) IV PRN ×6 (01:35→22:07)
[2016-12-12 04:00] VITALS: BP 108/64
[2016-12-12] MEDS: THEOPHYLLINE ANHYDROUS 80 MG/15 ML 120ML PO SCH ×3 (05:52→22:07)
[2016-12-12] MEDS: METHYLPREDNISOLONE SOD SUCC 40 MG/ML VIAL IV SCH ×3 (05:52→22:06)
[2016-12-12] MEDS: DIPHENHYDRAMINE 50MG/ML VIAL IV PRN ×3 (05:53→22:59)
[2016-12-12] MEDS: BLOOD SUGAR DIAGNOSTIC STRIP TEST SCH ×4 (06:50→21:57)
[2016-12-12 08:00] VITALS: BP 128/84
[2016-12-12] MEDS: LOSARTAN POTASSIUM 50 MG TABLET PO SCH (08:10)
[2016-12-12] MEDS: ENOXAPARIN 30MG/0.3ML SYR SUBCUT SCH ×2 (08:11→22:05)
[2016-12-12] MEDS: FAMOTIDINE 20MG TABLET PO SCH ×2 (08:11→17:13)
[2016-12-12] MEDS: DILTIAZEM HCL 180MG CAPSULE CD 24HR PO SCH (08:11)
[2016-12-12] MEDS: INSULIN LISPRO 100 UNITS/ML SUBCUT SCH ×4 (08:12→22:50)
[2016-12-12] MEDS: INSULIN DETEMIR UD 100 UNITS/ML SYR SUBCUT SCH ×2 (10:06→22:51)
[2016-12-12 11:58] VITALS: BP 121/68
[2016-12-12] MEDS: ALBUTEROL 2MG TABLET PO SCH ×2 (14:13→14:14)
[2016-12-12 16:00] VITALS: BP 110/66
[2016-12-12] MEDS: MONTELUKAST SODIUM 10MG TABLET PO SCH (17:13)
[2016-12-12 20:00] VITALS: BP 113/72
[2016-12-12] MEDS: ATORVASTATIN CALCIUM 20MG TABLET PO SCH (22:05)
[2016-12-12] MEDS: MIRTAZAPINE 30MG TABLET PO SCH (22:06)
[2016-12-12] MEDS: TEMAZEPAM 15MG CAPSULE PO PRN (22:50)
[2016-12-13] VITALS: BP 124/65
[2016-12-13] MEDS: MORPHINE SULFATE 4 MG/ML CPJ (NOT FOR IM USE) IV PRN ×5 (02:43→20:37)
[2016-12-13] MEDS: IPRATROPIUM/ALBUTEROL 0.5-3(2.5)MG/3ML NEB HHN SCH ×6 (03:47→23:55)
[2016-12-13 04:00] VITALS: BP 123/75
[2016-12-13] MEDS: METHYLPREDNISOLONE SOD SUCC 40 MG/ML VIAL IV SCH ×3 (05:48→21:30)
[2016-12-13] MEDS: THEOPHYLLINE ANHYDROUS 80 MG/15 ML 120ML PO SCH ×3 (05:49→21:30)
[2016-12-13] MEDS: BLOOD SUGAR DIAGNOSTIC STRIP TEST SCH ×4 (05:49→20:33)
[2016-12-13] MEDS: DIPHENHYDRAMINE 50MG/ML VIAL IV PRN ×2 (05:49→18:09)
[2016-12-13 08:00] VITALS: BP 135/72
[2016-12-13] MEDS: INSULIN DETEMIR UD 100 UNITS/ML SYR SUBCUT SCH ×2 (09:35→21:31)
[2016-12-13] MEDS: INSULIN LISPRO 100 UNITS/ML SUBCUT SCH ×4 (09:36→21:31)
[2016-12-13] MEDS: FAMOTIDINE 20MG TABLET PO SCH ×2 (09:37→18:09)
[2016-12-13] MEDS: ENOXAPARIN 30MG/0.3ML SYR SUBCUT SCH ×2 (09:37→20:36)
[2016-12-13] MEDS: LOSARTAN POTASSIUM 50 MG TABLET PO SCH (09:49)
[2016-12-13] MEDS: DILTIAZEM HCL 180MG CAPSULE CD 24HR PO SCH (09:49)
[2016-12-13 12:00] VITALS: BP 125/70
[2016-12-13 16:00] VITALS: BP 132/75
[2016-12-13] MEDS: MONTELUKAST SODIUM 10MG TABLET PO SCH (18:09)
[2016-12-13 20:00] VITALS: BP 136/83
[2016-12-13] MEDS: MIRTAZAPINE 30MG TABLET PO SCH (20:36)
[2016-12-13] MEDS: ATORVASTATIN CALCIUM 20MG TABLET PO SCH (20:36)
[2016-12-13] MEDS: ALBUTEROL 2MG TABLET PO SCH (21:29)
[2016-12-13] MEDS: TEMAZEPAM 15MG CAPSULE PO PRN (21:30)
[2016-12-14] VITALS (7 sets, daily range): BP systolic 110–157; BP diastolic 65–79
[2016-12-14] MEDS: MORPHINE SULFATE 4 MG/ML CPJ (NOT FOR IM USE) IV PRN ×5 (00:46→20:33)
[2016-12-14] MEDS: IPRATROPIUM/ALBUTEROL 0.5-3(2.5)MG/3ML NEB HHN SCH ×5 (04:18→20:41)
[2016-12-14] MEDS: METHYLPREDNISOLONE SOD SUCC 40 MG/ML VIAL IV SCH ×3 (05:47→20:32)
[2016-12-14] MEDS: THEOPHYLLINE ANHYDROUS 80 MG/15 ML 120ML PO SCH ×3 (05:47→20:32)
[2016-12-14] MEDS: BLOOD SUGAR DIAGNOSTIC STRIP TEST SCH ×4 (05:49→20:35)
[2016-12-14] MEDS: DIPHENHYDRAMINE 50MG/ML VIAL IV PRN ×3 (06:48→20:32)
[2016-12-14] MEDS: INSULIN LISPRO 100 UNITS/ML SUBCUT SCH ×4 (09:14→20:43)
[2016-12-14] MEDS: INSULIN DETEMIR UD 100 UNITS/ML SYR SUBCUT SCH ×2 (09:15→22:07)
[2016-12-14] MEDS: FAMOTIDINE 20MG TABLET PO SCH ×2 (09:16→18:42)
[2016-12-14] MEDS: ENOXAPARIN 30MG/0.3ML SYR SUBCUT SCH ×2 (09:16→20:33)
[2016-12-14] MEDS: DILTIAZEM HCL 180MG CAPSULE CD 24HR PO SCH (09:20)
[2016-12-14] MEDS: LOSARTAN POTASSIUM 50 MG TABLET PO SCH (09:20)
[2016-12-14] MEDS: MONTELUKAST SODIUM 10MG TABLET PO SCH (18:42)
[2016-12-14] MEDS: MIRTAZAPINE 30MG TABLET PO SCH (20:32)
[2016-12-14] MEDS: ATORVASTATIN CALCIUM 20MG TABLET PO SCH (20:32)
[2016-12-15] MEDS: MORPHINE SULFATE 4 MG/ML CPJ (NOT FOR IM USE) IV PRN ×5 (00:28→22:35)
[2016-12-15] MEDS: IPRATROPIUM/ALBUTEROL 0.5-3(2.5)MG/3ML NEB HHN SCH ×6 (00:33→21:53)
[2016-12-15 04:00] VITALS: BP 156/89
[2016-12-15] MEDS: DIPHENHYDRAMINE 50MG/ML VIAL IV PRN ×3 (04:27→20:20)
[2016-12-15] MEDS: THEOPHYLLINE ANHYDROUS 80 MG/15 ML 120ML PO SCH (05:37)
[2016-12-15] MEDS: METHYLPREDNISOLONE SOD SUCC 40 MG/ML VIAL IV SCH ×3 (05:37→20:42)
[2016-12-15] MEDS: BLOOD SUGAR DIAGNOSTIC STRIP TEST SCH ×4 (07:31→20:42)
[2016-12-15 08:00] VITALS: BP 137/96
[2016-12-15] MEDS: INSULIN DETEMIR UD 100 UNITS/ML SYR SUBCUT SCH ×2 (09:11→20:48)
[2016-12-15] MEDS: INSULIN LISPRO 100 UNITS/ML SUBCUT SCH ×4 (09:11→20:48)
[2016-12-15] MEDS: DILTIAZEM HCL 180MG CAPSULE CD 24HR PO SCH (09:12)
[2016-12-15] MEDS: LOSARTAN POTASSIUM 50 MG TABLET PO SCH (09:13)
[2016-12-15] MEDS: FAMOTIDINE 20MG TABLET PO SCH ×2 (09:13→18:24)
[2016-12-15] MEDS: ENOXAPARIN 30MG/0.3ML SYR SUBCUT SCH ×2 (09:13→20:39)
[2016-12-15 11:19] VITALS: BP 116/85
[2016-12-15 16:00] VITALS: BP 107/51
[2016-12-15 18:02] LABS: HEMATOCRIT. 37.7 % (42.0-52.0); MEAN CORPUSCULAR HEMOGLOBIN 27.7 pg (28.0-32.0); MEAN PLATELET VOLUME 8.6 fl (7.4-10.4); PLATELET 413 x1000/uL (130-400); RED BLOOD CELL COUNT 4.34 mill/uL (4.7-6.1); RED CELL DISTRIBUTION WIDTH 19.4 % (11.6-14.6)
[2016-12-15 18:18] LABS: CARBON DIOXIDE 30 mEq/L (21-32); CHLORIDE 105 mEq/L (98-107); THEOPHYLLINE 2.9 ug/mL (10-20)
[2016-12-15] MEDS: MONTELUKAST SODIUM 10MG TABLET PO SCH (18:24)
[2016-12-15 18:39] LABS: ATYPICAL LYMPHOCYTES 2; PLATELET ESTIMATE SLIGHTLY INCREASED
[2016-12-15 20:00] VITALS: BP_SYST 138; BP_SYST 152; BP_DIAS 45; BP_DIAS 80
[2016-12-15] MEDS: ATORVASTATIN CALCIUM 20MG TABLET PO SCH (20:39)
[2016-12-15] MEDS: MIRTAZAPINE 30MG TABLET PO SCH (20:39)
[2016-12-16] VITALS: BP 127/83
[2016-12-16] MEDS: IPRATROPIUM/ALBUTEROL 0.5-3(2.5)MG/3ML NEB HHN SCH ×6 (01:16→20:34)
[2016-12-16] MEDS: DIPHENHYDRAMINE 50MG/ML VIAL IV PRN ×5 (02:54→21:24)
[2016-12-16] MEDS: MORPHINE SULFATE 4 MG/ML CPJ (NOT FOR IM USE) IV PRN ×6 (02:55→21:25)
[2016-12-16 04:00] VITALS: BP 130/64
[2016-12-16] MEDS: METHYLPREDNISOLONE SOD SUCC 40 MG/ML VIAL IV SCH ×3 (06:09→21:19)
[2016-12-16] MEDS: BLOOD SUGAR DIAGNOSTIC STRIP TEST SCH ×4 (06:10→21:19)
[2016-12-16 08:00] VITALS: BP 140/87
[2016-12-16] MEDS: INSULIN LISPRO 100 UNITS/ML SUBCUT SCH ×4 (08:16→21:22)
[2016-12-16] MEDS: FAMOTIDINE 20MG TABLET PO SCH ×2 (08:18→17:10)
[2016-12-16] MEDS: ENOXAPARIN 30MG/0.3ML SYR SUBCUT SCH ×2 (08:18→21:18)
[2016-12-16] MEDS: LOSARTAN POTASSIUM 50 MG TABLET PO SCH (08:18)
[2016-12-16] MEDS: DILTIAZEM HCL 180MG CAPSULE CD 24HR PO SCH (08:18)
[2016-12-16] MEDS: INSULIN DETEMIR UD 100 UNITS/ML SYR SUBCUT SCH ×2 (09:08→21:22)
[2016-12-16 12:00] VITALS: BP 143/81
[2016-12-16 16:00] VITALS: BP 134/89
[2016-12-16] MEDS: MONTELUKAST SODIUM 10MG TABLET PO SCH (17:09)
[2016-12-16 20:02] VITALS: BP 135/78
[2016-12-16] MEDS: MIRTAZAPINE 30MG TABLET PO SCH (21:17)
[2016-12-16] MEDS: ATORVASTATIN CALCIUM 20MG TABLET PO SCH (21:17)
[2016-12-17] VITALS (7 sets, daily range): BP systolic 131–159; BP diastolic 77–91
[2016-12-17] MEDS: IPRATROPIUM/ALBUTEROL 0.5-3(2.5)MG/3ML NEB HHN SCH ×5 (01:39→15:53)
[2016-12-17] MEDS: MORPHINE SULFATE 4 MG/ML CPJ (NOT FOR IM USE) IV PRN ×5 (01:47→18:08)
[2016-12-17] MEDS: DIPHENHYDRAMINE 50MG/ML VIAL IV PRN ×3 (06:13→18:08)
[2016-12-17] MEDS: METHYLPREDNISOLONE SOD SUCC 40 MG/ML VIAL IV SCH ×2 (06:13→13:55)
[2016-12-17] MEDS: BLOOD SUGAR DIAGNOSTIC STRIP TEST SCH ×3 (08:08→18:08)
[2016-12-17] MEDS: DILTIAZEM HCL 180MG CAPSULE CD 24HR PO SCH (08:15)
[2016-12-17] MEDS: LOSARTAN POTASSIUM 50 MG TABLET PO SCH (08:16)
[2016-12-17] MEDS: ENOXAPARIN 30MG/0.3ML SYR SUBCUT SCH (08:16)
[2016-12-17] MEDS: FAMOTIDINE 20MG TABLET PO SCH ×2 (08:16→18:08)
[2016-12-17] MEDS: INSULIN LISPRO 100 UNITS/ML SUBCUT SCH ×3 (08:24→18:33)
[2016-12-17] MEDS: INSULIN DETEMIR UD 100 UNITS/ML SYR SUBCUT SCH (10:10)
[2016-12-17] MEDS: MONTELUKAST SODIUM 10MG TABLET PO SCH (18:08)
[2016-12-21] MEDS ORDERED: MIRT30TA PO (00:53)
[2016-12-21] MEDS ORDERED: METO-293 PO (00:55)
== END 2016-12-17 19:05 | disposition home or self-care (01) | DRG 189 ==
LOC: ER 14:29 → OBSVTOIN 15:38 → INTOOBSV 15:38 → 7WST 15:38 → EDBEDREQ 15:43 → ENRESERV 16:00 → CANBEDREQ 16:42 → 7WST 17:48
PROVIDERS: ADMIT Internal Medicine; ATTEND Internal Medicine
PROC: 5A09357 Assistance with Respiratory Ventilation, Less than 24 Consecutive Hours, Continuous Positive Airway Pressure (ICD-10-PCS; principal; 2016-12-11)
DX: J96.90 Respiratory failure, unspecified, unspecified whether with hypoxia or hypercapnia (principal); I27.20 Pulmonary hypertension, unspecified; J45.902 Unspecified asthma with status asthmaticus; I11.0 Hypertensive heart disease with heart failure; I50.9 Heart failure, unspecified; J44.1 Chronic obstructive pulmonary disease with (acute) exacerbation; E66.01 Morbid (severe) obesity due to excess calories; Z68.42 Body mass index [BMI] 45.0-49.9, adult; E78.00 Pure hypercholesterolemia, unspecified; G89.29 Other chronic pain; F32.9 Major depressive disorder, single episode, unspecified; M54.9 Dorsalgia, unspecified; F41.9 Anxiety disorder, unspecified; E11.9 Type 2 diabetes mellitus without complications; R00.0 Tachycardia, unspecified; Z88.6 Allergy status to analgesic agent; Z79.899 Other long term (current) drug therapy; Z90.49 Acquired absence of other specified parts of digestive tract; F41.1 Generalized anxiety disorder
CPT/HCPCS: 36415; 36600; 71010; 80048; 80053; 80198; 82375; 82805; 82962; 83605; 83690; 83880; 84443; 84484; 85025; 85610; 85730; 87040; 90686; 93005; 94640; 94660; 96374; 96375; 96376; 99285; C1893; J1200; J1650; J1815; J2270; J2405; J2920; J2930; J7620

== ENCOUNTER 2017-02-01 11:30 | Observation (INO) | payer OTHER ==
[~2017-02-01] VITALS: Ht 167.6 cm; Wt 133.8 kg
[~2017-02-01 11:30] MED LIST changes: +DIPH25CA83 PO; +LEVVL SQ; +MIRT30TA PO; -ZOLP10TA2 PO
[2017-02-01] MEDS ORDERED: METHYLPREDNISOLONE SOD SUCC 125 MG/2 ML VIAL IV ONE ×2 (13:00→15:00)
[2017-02-01] MEDS ORDERED: IPRATROPIUM/ALBUTEROL 0.5-3(2.5)MG/3ML NEB HHN ONE ×3 (13:00→16:45)
[2017-02-01 13:19] LABS: HEMATOCRIT. 42.3 % (42.0-52.0); HEMOGLOBIN. 13.1 g/dL (14.0-18.0); MEAN CORPUSCULAR HEMOGLOBIN 28.2 pg (28.0-32.0); MEAN CORPUSCULAR VOLUME 90.8 fL (80.0-94.0); MEAN PLATELET VOLUME 8.9 fl (7.4-10.4); PLATELET 317 x1000/uL (130-400); RED BLOOD CELL COUNT 4.65 mill/uL (4.7-6.1); RED CELL DISTRIBUTION WIDTH 21.2 % (11.6-14.6)
[2017-02-01 13:34] LABS: PROTHROMBIN TIME 10.4 sec (9.4-11.6)
[2017-02-01 13:35] LABS: CARBON DIOXIDE 32 mEq/L (21-32); CHLORIDE 107 mEq/L (98-107); TROPONIN I < 0.02 ng/mL (0.00-0.04)
[2017-02-01 14:28] LABS: PLATELET ESTIMATE NORMAL
[2017-02-01] MEDS ORDERED: SODIUM CHLORIDE 0.9% 1,000 ML IV ONE (16:55)
[2017-02-01] MEDS ORDERED: INSULIN LISPRO 100 UNITS/ML SUBCUT NR (19:45)
[2017-02-01 22:10] VITALS: BP_SYST 124; BP_DIAS 84; BP_DIAS 87
[2017-02-01] MEDS ORDERED: LORAZEPAM 1MG TABLET PO PRN (22:45)
[2017-02-01] MEDS ORDERED: IPRATROPIUM/ALBUTEROL 0.5-3(2.5)MG/3ML NEB HHN PRN (22:45)
[2017-02-01] MEDS ORDERED: DEXTROSE 50% WATER 50ML SYRINGE IV PRN (22:45)
[2017-02-01] MEDS: DIPHENHYDRAMINE 50MG/ML VIAL IV PRN (22:56)
[2017-02-01] MEDS: INSULIN LISPRO 100 UNITS/ML SUBCUT SCH (22:59)
[2017-02-01] MEDS: BLOOD SUGAR DIAGNOSTIC STRIP TEST SCH (23:00)
[2017-02-01] MEDS: LEVOFLOXACIN 500MG PREMIX 100 ML IV SCH (23:22)
[2017-02-01] MEDS ORDERED: INSULIN DETEMIR UD 100 UNITS/ML SYR SUBCUT NR (23:30)
[2017-02-01] MEDS: METHYLPREDNISOLONE SOD SUCC 40 MG/ML VIAL IV SCH (23:45)
[2017-02-01] MEDS: HYDROMORPHONE HCL/PF 2MG/ML CPJ IV PRN (23:45)
[2017-02-02 00:06] VITALS: BP 137/88
[2017-02-02] MEDS: TEMAZEPAM 15MG CAPSULE PO PRN ×2 (00:31→21:06)
[2017-02-02] MEDS: IPRATROPIUM/ALBUTEROL 0.5-3(2.5)MG/3ML NEB HHN SCH ×6 (00:45→20:09)
[2017-02-02 04:00] VITALS: BP 137/85
[2017-02-02] MEDS: HYDROMORPHONE HCL/PF 2MG/ML CPJ IV PRN ×5 (04:21→21:57)
[2017-02-02 06:46] LABS: HEMATOCRIT. 40.5 % (42.0-52.0); HEMOGLOBIN. 12.7 g/dL (14.0-18.0); MEAN CORPUSCULAR HEMOGLOBIN 28.3 pg (28.0-32.0); MEAN CORPUSCULAR VOLUME 89.9 fL (80.0-94.0); MEAN PLATELET VOLUME 9.2 fl (7.4-10.4); PLATELET 298 x1000/uL (130-400); RED CELL DISTRIBUTION WIDTH 21.1 % (11.6-14.6)
[2017-02-02 07:31] LABS: CARBON DIOXIDE 28 mEq/L (21-32); CHLORIDE 105 mEq/L (98-107)
[2017-02-02] MEDS: BLOOD SUGAR DIAGNOSTIC STRIP TEST SCH ×4 (07:40→20:39)
[2017-02-02 08:00] VITALS: BP 124/87
[2017-02-02] MEDS: LOSARTAN POTASSIUM 50 MG TABLET PO SCH ×2 (08:37→20:39)
[2017-02-02] MEDS: CLOPIDOGREL 75MG TABLET PO SCH (08:37)
[2017-02-02] MEDS: DILTIAZEM HCL 180MG CAPSULE CD 24HR PO SCH (08:38)
[2017-02-02] MEDS: PANTOPRAZOLE 40MG DR TABLET PO SCH (08:38)
[2017-02-02] MEDS: METHYLPREDNISOLONE SOD SUCC 40 MG/ML VIAL IV SCH ×2 (08:39→17:49)
[2017-02-02] MEDS: ENOXAPARIN 30MG/0.3ML SYR SUBCUT SCH ×2 (08:39→20:39)
[2017-02-02] MEDS: INSULIN LISPRO 100 UNITS/ML SUBCUT SCH ×5 (08:40→20:40)
[2017-02-02] MEDS ORDERED: ENOXAPARIN 40MG/0.4ML SYR SUBCUT SCH (09:00)
[2017-02-02] MEDS ORDERED: FUROSEMIDE 40MG TABLET PO SCH (09:00)
[2017-02-02 09:18] LABS: BG BASE EXCESS -0.1 mmol/L (-2.0-2.0); BG CARBOXYHEMOGLOBIN 0.6 % (0.5-1.5); BG DEOXYHEMOGLOBIN 3.6 % (0.0-5.0); BG FRACTION INSPIRED OXYGEN 28; BG METHEMOGLOBIN 0.1 % (0.0-1.5); BG OXYGEN SATURATION 96.4 % (92.0-98.5); BG OXYHEMOGLOBIN 95.7 % (94.0-97.0); BG PCO2 37.4 mmHg (35.0-45.0); BG PH 7.425 (7.350-7.450); BG PO2 84.8 mmHg (75.0-100.0); BG SAMPLE SITE RIGHT BRACHIAL; BG TOTAL HEMOGLOBIN 13.6 g/dL (12.0-18.0); BG VENT MODE NASAL CANNULA
[2017-02-02 12:00] VITALS: BP 108/42
[2017-02-02] MEDS ORDERED: DEXTROSE 50% WATER 50ML SYRINGE IV PRN (13:00)
[2017-02-02] MEDS ORDERED: MEDICATION NOT ON FORMULARY EA XX SCH (13:00)
[2017-02-02] MEDS: DIPHENHYDRAMINE 50MG/ML VIAL IV PRN ×2 (14:16→23:34)
[2017-02-02 16:00] VITALS: BP 118/77
[2017-02-02] MEDS: FUROSEMIDE 40MG/4ML VIAL IVP SCH (17:49)
[2017-02-02 18:01] LABS: PLATELET ESTIMATE NORMAL
[2017-02-02 20:00] VITALS: BP 111/70
[2017-02-02] MEDS: ATORVASTATIN CALCIUM 20MG TABLET PO SCH (20:38)
[2017-02-02] MEDS: INSULIN DETEMIR UD 100 UNITS/ML SYR SUBCUT SCH (21:05)
[2017-02-02] MEDS: LEVOFLOXACIN 500MG PREMIX 100 ML IV SCH (23:34)
[2017-02-03] VITALS: BP 123/76
[2017-02-03] MEDS: IPRATROPIUM/ALBUTEROL 0.5-3(2.5)MG/3ML NEB HHN SCH ×6 (00:05→20:41)
[2017-02-03] MEDS: HYDROMORPHONE HCL/PF 2MG/ML CPJ IV PRN ×6 (02:30→22:20)
[2017-02-03 04:00] VITALS: BP 128/75
[2017-02-03] MEDS: BLOOD SUGAR DIAGNOSTIC STRIP TEST SCH ×4 (05:54→21:00)
[2017-02-03] MEDS: INSULIN LISPRO 100 UNITS/ML SUBCUT SCH ×4 (05:55→22:28)
[2017-02-03 06:48] LABS: HEMOGLOBIN. 12.2 g/dL (14.0-18.0); MEAN CORPUSCULAR HEMOGLOBIN 28.5 pg (28.0-32.0); MEAN CORPUSCULAR VOLUME 88.6 fL (80.0-94.0); PLATELET 287 x1000/uL (130-400); RED BLOOD CELL COUNT 4.29 mill/uL (4.7-6.1); RED CELL DISTRIBUTION WIDTH 20.9 % (11.6-14.6)
[2017-02-03] MEDS ORDERED: INSULIN LISPRO 100 UNITS/ML SUBCUT NR (07:48)
[2017-02-03 08:00] VITALS: BP 128/86
[2017-02-03] MEDS: LOSARTAN POTASSIUM 50 MG TABLET PO SCH ×2 (08:47→22:19)
[2017-02-03] MEDS: DILTIAZEM HCL 180MG CAPSULE CD 24HR PO SCH (08:47)
[2017-02-03] MEDS: CLOPIDOGREL 75MG TABLET PO SCH (08:48)
[2017-02-03] MEDS: ENOXAPARIN 30MG/0.3ML SYR SUBCUT SCH ×2 (08:50→22:27)
[2017-02-03] MEDS: FUROSEMIDE 40MG/4ML VIAL IVP SCH (08:54)
[2017-02-03] MEDS: METHYLPREDNISOLONE SOD SUCC 40 MG/ML VIAL IV SCH (08:54)
[2017-02-03] MEDS: DIPHENHYDRAMINE 50MG/ML VIAL IV PRN ×2 (08:56→17:35)
[2017-02-03] MEDS: PANTOPRAZOLE 40MG DR TABLET PO SCH (09:10)
[2017-02-03 12:00] VITALS: BP 101/71
[2017-02-03 12:35] LABS: PLATELET ESTIMATE NORMAL
[2017-02-03 16:00] VITALS: BP 112/72
[2017-02-03 20:00] VITALS: BP_SYST 102; BP_SYST 120; BP_DIAS 73; BP_DIAS 88
[2017-02-03] MEDS: ATORVASTATIN CALCIUM 20MG TABLET PO SCH (22:19)
[2017-02-03] MEDS: TEMAZEPAM 15MG CAPSULE PO PRN (22:19)
[2017-02-03] MEDS: INSULIN DETEMIR UD 100 UNITS/ML SYR SUBCUT SCH (22:29)
[2017-02-03] MEDS: LEVOFLOXACIN 500MG PREMIX 100 ML IV SCH (23:48)
[2017-02-04] VITALS: BP 102/73
[2017-02-04] MEDS: IPRATROPIUM/ALBUTEROL 0.5-3(2.5)MG/3ML NEB HHN SCH ×6 (00:49→20:32)
[2017-02-04] MEDS: HYDROMORPHONE HCL/PF 2MG/ML CPJ IV PRN ×5 (02:46→20:02)
[2017-02-04] MEDS: DIPHENHYDRAMINE 50MG/ML VIAL IV PRN ×3 (03:00→21:50)
[2017-02-04 04:00] VITALS: BP 136/82
[2017-02-04] MEDS: BLOOD SUGAR DIAGNOSTIC STRIP TEST SCH ×4 (06:47→21:54)
[2017-02-04 08:00] VITALS: BP 112/80
[2017-02-04] MEDS: METHYLPREDNISOLONE SOD SUCC 40 MG/ML VIAL IV SCH (08:41)
[2017-02-04] MEDS: PANTOPRAZOLE 40MG DR TABLET PO SCH (08:42)
[2017-02-04] MEDS: CLOPIDOGREL 75MG TABLET PO SCH (08:42)
[2017-02-04] MEDS: ENOXAPARIN 30MG/0.3ML SYR SUBCUT SCH ×2 (08:43→21:57)
[2017-02-04] MEDS: FUROSEMIDE 40MG/4ML VIAL IVP SCH (08:50)
[2017-02-04] MEDS: DILTIAZEM HCL 180MG CAPSULE CD 24HR PO SCH (08:50)
[2017-02-04] MEDS: LOSARTAN POTASSIUM 50 MG TABLET PO SCH ×2 (08:50→21:49)
[2017-02-04] MEDS: INSULIN LISPRO 100 UNITS/ML SUBCUT SCH ×4 (08:56→22:00)
[2017-02-04 11:13] VITALS: BP 106/64
[2017-02-04 15:28] VITALS: BP 100/64
[2017-02-04 20:00] VITALS: BP 128/71
[2017-02-04] MEDS: ATORVASTATIN CALCIUM 20MG TABLET PO SCH (21:49)
[2017-02-04] MEDS: TEMAZEPAM 15MG CAPSULE PO PRN (21:50)
[2017-02-04] MEDS: INSULIN DETEMIR UD 100 UNITS/ML SYR SUBCUT SCH (21:55)
[2017-02-05] VITALS: BP 139/84
[2017-02-05] MEDS: LEVOFLOXACIN 500MG PREMIX 100 ML IV SCH (00:11)
[2017-02-05] MEDS: IPRATROPIUM/ALBUTEROL 0.5-3(2.5)MG/3ML NEB HHN SCH ×4 (00:38→12:26)
[2017-02-05 04:00] VITALS: BP 134/81
[2017-02-05] MEDS: HYDROMORPHONE HCL/PF 2MG/ML CPJ IV PRN ×3 (04:27→12:50)
[2017-02-05] MEDS ORDERED: MAGNESIUM/ALUMINUM HYDROXIDE/SIMETHICONE 30ML UDC PO PRN (04:30)
[2017-02-05] MEDS: BLOOD SUGAR DIAGNOSTIC STRIP TEST SCH ×3 (06:09→18:17)
[2017-02-05 08:00] VITALS: BP 114/88
[2017-02-05] MEDS: CLOPIDOGREL 75MG TABLET PO SCH (08:25)
[2017-02-05] MEDS: ENOXAPARIN 30MG/0.3ML SYR SUBCUT SCH (08:25)
[2017-02-05] MEDS: PANTOPRAZOLE 40MG DR TABLET PO SCH (08:25)
[2017-02-05] MEDS: LOSARTAN POTASSIUM 50 MG TABLET PO SCH (08:25)
[2017-02-05] MEDS: DILTIAZEM HCL 180MG CAPSULE CD 24HR PO SCH (08:26)
[2017-02-05] MEDS: METHYLPREDNISOLONE SOD SUCC 40 MG/ML VIAL IV SCH (08:26)
[2017-02-05] MEDS: DIPHENHYDRAMINE 50MG/ML VIAL IV PRN (08:27)
[2017-02-05] MEDS: INSULIN LISPRO 100 UNITS/ML SUBCUT SCH ×3 (08:30→18:17)
[2017-02-05] MEDS: FUROSEMIDE 40MG/4ML VIAL IVP SCH (09:00)
[2017-02-05 12:00] VITALS: BP 129/60
[2017-02-05 16:00] VITALS: BP 119/80
[2017-02-05 17:03] LABS: HEMATOCRIT. 42.1 % (42.0-52.0); HEMOGLOBIN. 13.4 g/dL (14.0-18.0); MEAN CORPUSCULAR HEMOGLOBIN 28.7 pg (28.0-32.0); MEAN PLATELET VOLUME 9.5 fl (7.4-10.4); PLATELET 288 x1000/uL (130-400); RED BLOOD CELL COUNT 4.68 mill/uL (4.7-6.1); RED CELL DISTRIBUTION WIDTH 21.3 % (11.6-14.6)
[2017-02-05 18:34] VITALS: BP 119/80
[2017-02-05 20:10] LABS: PLATELET ESTIMATE NORMAL
== END 2017-02-05 19:00 | disposition home or self-care (01) ==
LOC: ER 12:51 → ENRESERV 16:52 → 7WST 17:33 → INTOOBSV 17:33 → EDBEDREQ 17:35
PROVIDERS: ADMIT Internal Medicine; ATTEND Internal Medicine
DX: J45.901 Unspecified asthma with (acute) exacerbation (principal); J44.1 Chronic obstructive pulmonary disease with (acute) exacerbation; E11.65 Type 2 diabetes mellitus with hyperglycemia; I27.81 Cor pulmonale (chronic); I10 Essential (primary) hypertension; G89.29 Other chronic pain; M54.5 Low back pain; E66.01 Morbid (severe) obesity due to excess calories; F41.1 Generalized anxiety disorder; E78.00 Pure hypercholesterolemia, unspecified; Z90.81 Acquired absence of spleen; Z90.49 Acquired absence of other specified parts of digestive tract
CPT/HCPCS: 36415; 36600; 71010; 80048; 80053; 82375; 82805; 82962; 83880; 84484; 85025; 85610; 93005; 94640; 94664; 96365; 96366; 96372; 96375; 96376; 99285; G0378; J1170; J1200; J1650; J1815; J1940; J1956; J2920; J2930; J7040; 96374; J7030; J7620

== ENCOUNTER 2017-02-25 13:35 | Emergency (ER) | payer OTHER ==
[~2017-02-25 13:35] MED LIST changes: -INSU3INS6 SUBCUT
== END 2017-02-25 15:27 | disposition left against medical advice (07) ==
LOC: ER 14:03
DX: Z53.21 Procedure and treatment not carried out due to patient leaving prior to being seen by health care provider (principal)

== ENCOUNTER 2017-06-15 18:32 | Emergency (ER) | payer OTHER ==
[~2017-06-15] VITALS: Ht 167.6 cm; Wt 129.0 kg
[~2017-06-15 18:32] MED LIST changes: -IPRA3AMP9 IH; -LEVVL SQ; +OXYC-104 PO; -OXYC-23 PO
[2017-06-16] MEDS ORDERED: MORPHINE SULFATE 4 MG/ML CPJ (NOT FOR IM USE) IV STA (00:24)
[2017-06-16] MEDS ORDERED: ONDANSETRON HCL 4MG/2ML VIAL IV STA (00:24)
[2017-06-16] MEDS ORDERED: FAMOTIDINE 20MG/2ML VIAL IV STA (00:24)
[2017-06-16] MEDS ORDERED: SODIUM CHLORIDE 0.9% 1,000 ML IV ONE (00:24)
[2017-06-16 00:43] LABS: BASOPHILS % 0.7 % (0.0-2.0); EOSINOPHILS % 2.4 % (0.0-5.0); HEMOGLOBIN. 11.9 g/dL (14.0-18.0); MEAN CORPUSCULAR VOLUME 80.9 fL (80.0-94.0); MEAN PLATELET VOLUME 8.2 fl (7.4-10.4); MONOCYTES % 9.2 % (2.0-8.0); NEUTROPHILS % 54.7 % (40.0-76.0); PLATELET 369 x1000/uL (130-400); RED BLOOD CELL COUNT 4.58 mill/uL (4.7-6.1); RED CELL DISTRIBUTION WIDTH 19.3 % (11.6-14.6)
[2017-06-16 00:50] LABS: CHLORIDE 107 mEq/L (98-107)
[2017-06-16] MEDS ORDERED: KETOROLAC 30MG/ML VIAL IV NR (03:45)
[2017-06-16 05:44] VITALS: BP 113/77
== END 2017-06-16 05:51 | disposition home or self-care (01) ==
LOC: ER 18:32
DX: R10.9 Unspecified abdominal pain (principal); D64.9 Anemia, unspecified; D72.829 Elevated white blood cell count, unspecified; J45.909 Unspecified asthma, uncomplicated; I10 Essential (primary) hypertension; E11.9 Type 2 diabetes mellitus without complications; M19.90 Unspecified osteoarthritis, unspecified site; E78.00 Pure hypercholesterolemia, unspecified; Z90.49 Acquired absence of other specified parts of digestive tract; Z87.828 Personal history of other (healed) physical injury and trauma; Z79.4 Long term (current) use of insulin; Z88.6 Allergy status to analgesic agent; Z88.8 Allergy status to other drugs, medicaments and biological substances; Z91.048 Other nonmedicinal substance allergy status
CPT/HCPCS: 36415; 74022; 80053; 83605; 83690; 85025; 96361; 96374; 96375; 99285; J1885; J2270; J2405; J3490; J7030

== ENCOUNTER 2017-09-24 22:08 | Emergency (ER) | payer OTHER ==
[~2017-09-24] VITALS: Ht 167.6 cm; Wt 130.0 kg
[~2017-09-24 22:08] MED LIST changes: +DILT180C66 PO; -DILT180C69 PO; -OXYC-104 PO; +OXYC-105 PO
[2017-09-24] MEDS ORDERED: ALBUTEROL (0.083%) 2.5MG/3ML NEB HHN STA (23:58)
[2017-09-24] MEDS ORDERED: METHYLPREDNISOLONE SOD SUCC 125 MG/2 ML VIAL IV STA (23:58)
[2017-09-24] MEDS ORDERED: IPRATROPIUM BROMIDE (0.02%) 0.5MG/2.5ML NEB HHN STA (23:58)
[2017-09-25] MEDS ORDERED: DIPHENHYDRAMINE 50MG/ML VIAL IV ONE (00:15)
[2017-09-25 00:32] LABS: BASOPHILS % 0.6 % (0.0-2.0); EOSINOPHILS % 1.6 % (0.0-5.0); HEMATOCRIT. 35.7 % (42.0-52.0); HEMOGLOBIN. 11.3 g/dL (14.0-18.0); MEAN CORPUSCULAR HEMOGLOBIN 24.5 pg (28.0-32.0); MEAN CORPUSCULAR VOLUME 77.6 fL (80.0-94.0); MEAN PLATELET VOLUME 8.2 fl (7.4-10.4); MONOCYTES % 7.8 % (2.0-8.0); PLATELET 452 x1000/uL (130-400); RED BLOOD CELL COUNT 4.59 mill/uL (4.7-6.1); RED CELL DISTRIBUTION WIDTH 21.2 % (11.6-14.6)
[2017-09-25 00:36] LABS: BG BASE EXCESS -1.6 mmol/L (-2.0-2.0); BG CARBOXYHEMOGLOBIN 0.3 % (0.5-1.5); BG DEOXYHEMOGLOBIN 3.2 % (0.0-5.0); BG FRACTION INSPIRED OXYGEN 28; BG HCO3 ACT 22.7 mmol/L (22.0-26.0); BG METHEMOGLOBIN 0.3 % (0.0-1.5); BG OXYGEN SATURATION 96.8 % (92.0-98.5); BG OXYHEMOGLOBIN 96.2 % (94.0-97.0); BG PCO2 37.1 mmHg (35.0-45.0); BG PH 7.405 (7.350-7.450); BG SAMPLE SITE RIGHT RADIAL; BG VENT MODE NASAL CANNULA
[2017-09-25 00:36] LABS: CHLORIDE 108 mEq/L (98-107)
[2017-09-25] MEDS ORDERED: HYDROCODONE/ACETAMINOPHEN 10/325MG TABLET PO ONE (00:45)
[2017-09-25] MEDS ORDERED: IPRATROPIUM BROMIDE (0.02%) 0.5MG/2.5ML NEB HHN STA (02:53)
[2017-09-25] MEDS ORDERED: ALBUTEROL (0.083%) 2.5MG/3ML NEB HHN STA (02:53)
[2017-09-25 03:00] VITALS: BP 124/90
== END 2017-09-25 03:06 | disposition home or self-care (01) ==
LOC: ER 22:08
DX: J45.909 Unspecified asthma, uncomplicated (principal); R07.9 Chest pain, unspecified; I10 Essential (primary) hypertension; E78.00 Pure hypercholesterolemia, unspecified; G47.30 Sleep apnea, unspecified; Z88.6 Allergy status to analgesic agent; Z88.8 Allergy status to other drugs, medicaments and biological substances; Z91.018 Allergy to other foods
CPT/HCPCS: 36415; 36600; 71045; 80053; 82375; 82805; 83605; 83880; 84484; 85025; 93005; 94640; 96374; 96375; 99285; J1200; J2930; J7611

== ENCOUNTER 2017-10-24 07:04 | Emergency (ER) | payer OTHER ==
[~2017-10-24] VITALS: Ht 167.6 cm; Wt 129.0 kg
[2017-10-24] MEDS ORDERED: ONDANSETRON 4MG ODT PO ONE (08:15)
[2017-10-24] MEDS ORDERED: MORPHINE SULFATE 10 MG/ML CPJ IM ONE (08:15)
[2017-10-24] MEDS ORDERED: DIATR MEGLU/DIATRIZOATE SOLN 120ML ONE (09:11)
[2017-10-24] MEDS ORDERED: POLYETHYLENE GLYCOL 3350 (17GM) 1 DOSE PACK PO ONE (11:15)
[2017-10-24 12:47] VITALS: BP 110/73
== END 2017-10-24 13:05 | disposition home or self-care (01) ==
LOC: ER 07:04
DX: M54.5 Low back pain (principal); K59.00 Constipation, unspecified; J45.909 Unspecified asthma, uncomplicated; E11.9 Type 2 diabetes mellitus without complications; E78.00 Pure hypercholesterolemia, unspecified; I10 Essential (primary) hypertension; Z90.49 Acquired absence of other specified parts of digestive tract; Z88.6 Allergy status to analgesic agent; Z91.018 Allergy to other foods; Z88.8 Allergy status to other drugs, medicaments and biological substances; Z79.899 Other long term (current) drug therapy; Z98.890 Other specified postprocedural states
CPT/HCPCS: 74022; 74250; 96372; 99284; J2270; Q0162; Q9963

== ENCOUNTER 2018-04-10 16:53 | Inpatient (IN) | payer OTHER ==
[~2018-04-10] VITALS: Ht 177.8 cm; Wt 121.3 kg
[~2018-04-10 16:53] MED LIST changes: +ALPR1TAB2 PO; +ATOR20TA PO; -ATOR20TA65 PO; +DIAZ10TA PO; -METO-293 PO
[2018-04-10] MEDS ORDERED: ONDANSETRON HCL 4MG/2ML INJ IV STA (17:30)
[2018-04-10] MEDS ORDERED: MORPHINE SULFATE 10 MG/ML CPJ IV ONE ×2 (17:30→20:00)
[2018-04-10 18:07] LABS: BASOPHILS % 0.6 % (0.0-2.0); EOSINOPHILS % 2.5 % (0.0-5.0); HEMATOCRIT. 41.3 % (42.0-52.0); HEMOGLOBIN. 13.2 g/dL (14.0-18.0); LYMPHOCYTES % 37.4 % (20.0-50.0); MEAN CORPUSCULAR HEMOGLOBIN 27.3 pg (28.0-32.0); MEAN CORPUSCULAR VOLUME 85.2 fL (80.0-94.0); MEAN PLATELET VOLUME 9.8 fl (7.4-10.4); MONOCYTES % 7.6 % (2.0-8.0); NEUTROPHILS % 51.9 % (40.0-76.0); PLATELET 322 x1000/uL (130-400); RED BLOOD CELL COUNT 4.85 mill/uL (4.7-6.1); RED CELL DISTRIBUTION WIDTH 19.8 % (11.6-14.6)
[2018-04-10 18:15] LABS: CHLORIDE 105 mEq/L (98-107)
[2018-04-10 18:16] LABS: INR 1.1; PARTIAL THROMBOPLASTIN TIME 29.4 sec (23.4-31.0); PROTHROMBIN TIME 10.8 sec (9.1-11.1)
[2018-04-10] MEDS ORDERED: ONDANSETRON HCL 4MG/2ML INJ IV ONE (20:00)
[2018-04-10] MEDS ORDERED: ACETAMINOPHEN 325MG TABLET PO PRN (22:45)
[2018-04-10 23:44] VITALS: BP 154/100
[2018-04-10 23:58] VITALS: BP 154/100
[2018-04-11] MEDS ORDERED: DULO30CA2 PO (00:23)
[2018-04-11] MEDS: HYDROMORPHONE HCL/PF 2MG/ML CPJ IV PRN ×5 (01:43→21:48)
[2018-04-11 03:47] VITALS: BP 147/79
[2018-04-11] MEDS: CYCLOBENZAPRINE 10MG TABLET PO PRN ×2 (05:09→21:33)
[2018-04-11 07:03] LABS: BASOPHILS % 1.2 % (0.0-2.0); EOSINOPHILS % 4.7 % (0.0-5.0); HEMATOCRIT. 39.7 % (42.0-52.0); HEMOGLOBIN. 12.7 g/dL (14.0-18.0); LYMPHOCYTES % 41.3 % (20.0-50.0); MEAN CORPUSCULAR HEMOGLOBIN 27.4 pg (28.0-32.0); MEAN PLATELET VOLUME 10.2 fl (7.4-10.4); MONOCYTES % 8.5 % (2.0-8.0); NEUTROPHILS % 44.3 % (40.0-76.0); PLATELET 328 x1000/uL (130-400); RED BLOOD CELL COUNT 4.61 mill/uL (4.7-6.1)
[2018-04-11 07:10] LABS: CHLORIDE 103 mEq/L (98-107)
[2018-04-11 08:00] VITALS: BP 114/81
[2018-04-11] MEDS: DULOXETINE HCL 30MG DR CAPSULE PO SCH (08:47)
[2018-04-11] MEDS: LOSARTAN POTASSIUM 50 MG TABLET PO SCH (08:47)
[2018-04-11] MEDS: MULTIVITAMINS,THER W-MINERALS TABLET PO SCH (08:47)
[2018-04-11] MEDS: FAMOTIDINE 20MG TABLET PO SCH ×2 (08:47→21:33)
[2018-04-11] MEDS: DILTIAZEM HCL 180MG CAPSULE CD 24HR PO SCH (08:47)
[2018-04-11] MEDS: MONTELUKAST SODIUM 10MG TABLET PO SCH (08:48)
[2018-04-11] MEDS ORDERED: MEDICATION NOT ON FORMULARY EA (Losartan Potassium 50 MG) PO SCH (09:00)
[2018-04-11] MEDS ORDERED: [UNRECOGNIZED DRUG - OTHER] PO SCH (09:00)
[2018-04-11] MEDS ORDERED: LORAZEPAM 1MG TABLET PO NR (15:45)
[2018-04-11 16:00] VITALS: BP 132/89
[2018-04-11] MEDS ORDERED: BISACODYL 5MG TABLET PO PRN (18:00)
[2018-04-11 20:00] VITALS: BP 137/86
[2018-04-11] MEDS: ATORVASTATIN CALCIUM 20MG TABLET PO SCH (21:33)
[2018-04-11 23:51] VITALS: BP 133/77
[2018-04-12] MEDS: HYDROMORPHONE HCL/PF 2MG/ML CPJ IV PRN ×4 (01:44→21:08)
[2018-04-12 04:00] VITALS: BP 145/90
[2018-04-12] MEDS: CYCLOBENZAPRINE 10MG TABLET PO PRN (06:23)
[2018-04-12 08:00] VITALS: BP 129/76
[2018-04-12] MEDS: MONTELUKAST SODIUM 10MG TABLET PO SCH (09:07)
[2018-04-12] MEDS: LOSARTAN POTASSIUM 50 MG TABLET PO SCH (09:07)
[2018-04-12] MEDS: DILTIAZEM HCL 180MG CAPSULE CD 24HR PO SCH (09:07)
[2018-04-12] MEDS: MULTIVITAMINS,THER W-MINERALS TABLET PO SCH (09:07)
[2018-04-12] MEDS: FAMOTIDINE 20MG TABLET PO SCH ×2 (09:07→21:08)
[2018-04-12] MEDS: DULOXETINE HCL 30MG DR CAPSULE PO SCH (09:07)
[2018-04-12] MEDS: KETOROLAC 15MG/ML VIAL IV PRN (09:36)
[2018-04-12 12:00] VITALS: BP 129/81
[2018-04-12 16:00] VITALS: BP 105/57
[2018-04-12 20:00] VITALS: BP 116/65
[2018-04-12] MEDS: ATORVASTATIN CALCIUM 20MG TABLET PO SCH (21:07)
[2018-04-12 23:46] VITALS: BP 145/82
[2018-04-13] MEDS: HYDROMORPHONE HCL/PF 2MG/ML CPJ IV PRN ×4 (01:18→14:06)
[2018-04-13 04:00] VITALS: BP 158/82
[2018-04-13 08:00] VITALS: BP 155/82
[2018-04-13] MEDS: DULOXETINE HCL 30MG DR CAPSULE PO SCH (09:10)
[2018-04-13] MEDS: DILTIAZEM HCL 180MG CAPSULE CD 24HR PO SCH (09:10)
[2018-04-13] MEDS: FAMOTIDINE 20MG TABLET PO SCH (09:10)
[2018-04-13] MEDS: MONTELUKAST SODIUM 10MG TABLET PO SCH (09:10)
[2018-04-13] MEDS: MULTIVITAMINS,THER W-MINERALS TABLET PO SCH (09:10)
[2018-04-13] MEDS: LOSARTAN POTASSIUM 50 MG TABLET PO SCH (09:10)
[2018-04-13] MEDS: KETOROLAC 15MG/ML VIAL IV PRN (10:05)
[2018-04-13 12:00] VITALS: BP 136/70
[2018-04-13 14:50] VITALS: BP 136/70
[2018-04-30] MEDS ORDERED: DIPHENHYDRAMINE 50MG/ML VIAL IV ONE (11:15)
== END 2018-04-13 15:25 | disposition home or self-care (01) | DRG 552 ==
LOC: ER 16:53 → 7WST 21:39 → ENRESERV 22:48
PROVIDERS: ADMIT Internal Medicine; ATTEND Internal Medicine
DX: M47.817 Spondylosis without myelopathy or radiculopathy, lumbosacral region (principal); J44.9 Chronic obstructive pulmonary disease, unspecified; W01.0XXA Fall on same level from slipping, tripping and stumbling without subsequent striking against object, initial encounter; M51.37 Other intervertebral disc degeneration, lumbosacral region; E66.01 Morbid (severe) obesity due to excess calories; E78.00 Pure hypercholesterolemia, unspecified; M48.061 Spinal stenosis, lumbar region without neurogenic claudication; S30.0XXA Contusion of lower back and pelvis, initial encounter; G89.29 Other chronic pain; I10 Essential (primary) hypertension; E11.9 Type 2 diabetes mellitus without complications; R26.2 Difficulty in walking, not elsewhere classified; Y93.01 Activity, walking, marching and hiking; Z88.6 Allergy status to analgesic agent; Z88.5 Allergy status to narcotic agent; Z88.8 Allergy status to other drugs, medicaments and biological substances; Z79.899 Other long term (current) drug therapy; Z87.891 Personal history of nicotine dependence; Z90.49 Acquired absence of other specified parts of digestive tract; Z99.81 Dependence on supplemental oxygen; Y92.89 Other specified places as the place of occurrence of the external cause; Y99.8 Other external cause status; Z68.38 Body mass index [BMI] 38.0-38.9, adult
CPT/HCPCS: 36415; 71045; 72131; 72148; 73522; 80048; 80061; 82962; 83880; 84484; 93005; 96374; 96375; 96376; 97116; 97162; 99285; J1170; J1885; J2270; J2405

== ENCOUNTER 2018-04-29 21:05 | Inpatient (IN) | payer OTHER ==
[~2018-04-29] VITALS: Ht 167.6 cm; Wt 119.7 kg
[~2018-04-29 21:05] MED LIST changes: -ALPR1TAB2 PO; -DIAZ10TA PO; -DIPH25CA83 PO; +DULO30CA2 PO; -FURO-151 PO; -MIRT30TA PO; -OMEP40CA34 PO; -OXYC-105 PO; -P20 PO; -TEMA15CA PO
[2018-04-29] MEDS ORDERED: METHYLPREDNISOLONE SOD SUCC 125 MG/2 ML VIAL IV STA (22:23)
[2018-04-29] MEDS ORDERED: ALBUTEROL (0.083%) 2.5MG/3ML NEB HHN STA ×2 (22:23→23:55)
[2018-04-29] MEDS ORDERED: IPRATROPIUM BROMIDE (0.02%) 0.5MG/2.5ML NEB HHN STA (22:23)
[2018-04-29] MEDS ORDERED: MAGNESIUM 2 G PREMIX 50 ML IV STA (22:23)
[2018-04-30 00:26] LABS: CHLORIDE 108 mEq/L (98-107)
[2018-04-30 00:33] LABS: HEMATOCRIT 44.3 % (42.0-52.0); HEMOGLOBIN 14.1 g/dL (14.0-18.0); MEAN CORPUSCULAR HEMOGLOBIN 28.1 pg (28.0-32.0); MEAN CORPUSCULAR VOLUME 87.9 fL (80.0-94.0); PLATELET 362 x1000/uL (130-400); RED BLOOD CELL COUNT 5.04 mill/uL (4.7-6.1)
[2018-04-30] MEDS ORDERED: MORPHINE SULFATE 4 MG/ML CPJ (NOT FOR IM USE) IV ONE ×2 (01:00)
[2018-04-30] MEDS ORDERED: DIPHENHYDRAMINE 25MG CAPSULE PO ONE (04:30)
[2018-04-30] MEDS: MORPHINE SULFATE 4 MG/ML CPJ (NOT FOR IM USE) IV PRN ×4 (10:25→22:14)
[2018-04-30] MEDS ORDERED: ALBUTEROL (0.083%) 2.5MG/3ML NEB ONE (10:55)
[2018-04-30] MEDS ORDERED: ALBUTEROL (0.083%) 2.5MG/3ML NEB HHN NR (11:00)
[2018-04-30 11:23] LABS: BG BASE EXCESS 0.3 mmol/L (-2.0-2.0); BG BILEVEL POS AIRWAY PRESSURE 15/5; BG CARBOXYHEMOGLOBIN 0.3 % (0.5-1.5); BG DEOXYHEMOGLOBIN 0.6 % (0.0-5.0); BG FRACTION INSPIRED OXYGEN 30; BG HCO3 ACT 25.1 mmol/L (22.0-26.0); BG METHEMOGLOBIN 0.3 % (0.0-1.5); BG OXYGEN SATURATION 99.4 % (92.0-98.5); BG OXYHEMOGLOBIN 98.8 % (94.0-97.0); BG PCO2 41.1 mmHg (35.0-45.0); BG PH 7.403 (7.350-7.450); BG PO2 237.7 mmHg (75.0-100.0); BG SAMPLE SITE RIGHT BRACHIAL; BG TOTAL HEMOGLOBIN 14.6 g/dL (12.0-18.0); BG VENT MODE MASK - BIPAP
[2018-04-30 20:30] VITALS: BP 137/93
[2018-04-30 20:43] VITALS: BP 145/98
[2018-04-30] MEDS ORDERED: IPRATROPIUM/ALBUTEROL 0.5-3(2.5)MG/3ML NEB HHN PRN (21:45)
[2018-04-30 22:00] VITALS: BP 156/97
[2018-04-30] MEDS: METHYLPREDNISOLONE SOD SUCC 40 MG/ML VIAL IV SCH (22:00)
[2018-04-30] MEDS ORDERED: DEXTROSE 50% WATER 50ML SYRINGE IV PRN (22:00)
[2018-04-30] MEDS: PANTOPRAZOLE 40MG DR TABLET PO SCH (22:12)
[2018-04-30] MEDS ORDERED: MEDICATION NOT ON FORMULARY EA (Losartan Potassium 50 MG) PO SCH (22:45)
[2018-04-30] MEDS: LOSARTAN POTASSIUM 50 MG TABLET PO SCH (23:35)
[2018-04-30] MEDS: DILTIAZEM HCL 180MG CAPSULE CD 24HR PO SCH (23:35)
[2018-04-30] MEDS: ATORVASTATIN CALCIUM 20MG TABLET PO SCH (23:35)
[2018-04-30] MEDS: TEMAZEPAM 15MG CAPSULE PO PRN (23:35)
[2018-04-30] MEDS: ENOXAPARIN 30MG/0.3ML SYR SUBCUT SCH (23:37)
[2018-05-01] VITALS (12 sets, daily range): BP systolic 120–154; BP diastolic 39–99
[2018-05-01] MEDS: IPRATROPIUM/ALBUTEROL 0.5-3(2.5)MG/3ML NEB HHN SCH ×6 (00:12→20:51)
[2018-05-01] MEDS: DULOXETINE HCL 30MG DR CAPSULE PO SCH ×2 (01:29→08:01)
[2018-05-01] MEDS: DIPHENHYDRAMINE 50MG/ML VIAL IV PRN ×4 (02:48→22:39)
[2018-05-01] MEDS: MORPHINE SULFATE 4 MG/ML CPJ (NOT FOR IM USE) IV PRN ×4 (04:53→23:13)
[2018-05-01] MEDS: METHYLPREDNISOLONE SOD SUCC 40 MG/ML VIAL IV SCH ×3 (07:06→22:39)
[2018-05-01] MEDS: BLOOD SUGAR DIAGNOSTIC STRIP TEST SCH ×4 (07:40→20:56)
[2018-05-01] MEDS: DILTIAZEM HCL 180MG CAPSULE CD 24HR PO SCH (08:01)
[2018-05-01] MEDS: INSULIN LISPRO 100 UNITS/ML SUBCUT SCH ×4 (08:01→21:06)
[2018-05-01] MEDS: MULTIVITAMINS,THER W-MINERALS TABLET PO SCH (08:01)
[2018-05-01] MEDS: PANTOPRAZOLE 40MG DR TABLET PO SCH (08:02)
[2018-05-01] MEDS: LOSARTAN POTASSIUM 50 MG TABLET PO SCH (08:02)
[2018-05-01] MEDS: ENOXAPARIN 30MG/0.3ML SYR SUBCUT SCH ×2 (08:02→20:24)
[2018-05-01] MEDS ORDERED: MONTELUKAST SODIUM 10MG TABLET PO SCH (09:00)
[2018-05-01] MEDS ORDERED: [UNRECOGNIZED DRUG - OTHER] PO SCH (09:00)
[2018-05-01] MEDS ORDERED: CEFTRIAXONE 1,000 MG in DEXTROSE 5% WATER 50 ML IV SCH (17:30)
[2018-05-01] MEDS ORDERED: MAGNESIUM/ALUMINUM HYDROXIDE/SIMETHICONE 30ML UDC PO PRN (17:30)
[2018-05-01] MEDS ORDERED: CEFTRIAXONE 1 G PREMIX 50 ML IV SCH (17:30)
[2018-05-01] MEDS: CEFTRIAXONE 1,000 MG in DEXTROSE 5% WATER 50 ML IV SCH (18:00)
[2018-05-01] MEDS ORDERED: AZITHROMYCIN 500 MG in DEXT 5% WATER 250 ML IV SCH ×2 (18:00→19:00)
[2018-05-01 19:40] LABS: CLARITY URINE CLOUDY (CLEAR); COLOR URINE YELLOW (YELLOW); KETONES URINE NEGATIVE (NEGATIVE); LEUKOCYTE ESTERASE URINE NEGATIVE (NEGATIVE); NITRITE URINE NEGATIVE (NEGATIVE); OCCULT BLOOD URINE NEGATIVE (NEGATIVE); PH URINE 5.5 (4.5-8.0); PROTEIN URINE NEGATIVE (NEGATIVE); SPECIFIC GRAVITY URINE 1.024 (1.005-1.030); UROBILINOGEN URINE 0.2 E.U./dL (0.2-1.0)
[2018-05-01] MEDS: ATORVASTATIN CALCIUM 20MG TABLET PO SCH (20:24)
[2018-05-01] MEDS: BUDESONIDE 0.5MG/2ML NEB HHN SCH (20:51)
[2018-05-02] VITALS (13 sets, daily range): BP systolic 138–159; BP diastolic 71–99
[2018-05-02] MEDS: IPRATROPIUM/ALBUTEROL 0.5-3(2.5)MG/3ML NEB HHN SCH ×6 (01:42→20:56)
[2018-05-02] MEDS: MORPHINE SULFATE 4 MG/ML CPJ (NOT FOR IM USE) IV PRN ×4 (04:56→22:59)
[2018-05-02 05:52] LABS: HEMATOCRIT 38.6 % (42.0-52.0); HEMOGLOBIN 12.4 g/dL (14.0-18.0); MEAN CORPUSCULAR HEMOGLOBIN 27.8 pg (28.0-32.0); MEAN CORPUSCULAR VOLUME 86.3 fL (80.0-94.0); PLATELET 337 x1000/uL (130-400); RED BLOOD CELL COUNT 4.47 mill/uL (4.7-6.1); RED CELL DISTRIBUTION WIDTH 18.2 % (11.6-14.6)
[2018-05-02] MEDS: BLOOD SUGAR DIAGNOSTIC STRIP TEST SCH ×4 (06:14→20:34)
[2018-05-02] MEDS: METHYLPREDNISOLONE SOD SUCC 40 MG/ML VIAL IV SCH ×3 (06:15→22:37)
[2018-05-02] MEDS: DIPHENHYDRAMINE 50MG/ML VIAL IV PRN ×2 (06:15→22:37)
[2018-05-02 06:21] LABS: CHLORIDE 102 mEq/L (98-107)
[2018-05-02] MEDS: LOSARTAN POTASSIUM 50 MG TABLET PO SCH (08:00)
[2018-05-02] MEDS: DULOXETINE HCL 30MG DR CAPSULE PO SCH (08:01)
[2018-05-02] MEDS: ENOXAPARIN 30MG/0.3ML SYR SUBCUT SCH ×2 (08:01→20:31)
[2018-05-02] MEDS: MULTIVITAMINS,THER W-MINERALS TABLET PO SCH (08:01)
[2018-05-02] MEDS: DILTIAZEM HCL 180MG CAPSULE CD 24HR PO SCH (08:01)
[2018-05-02] MEDS: LORATADINE 10MG TABLET PO SCH (08:01)
[2018-05-02] MEDS: PANTOPRAZOLE 40MG DR TABLET PO SCH (08:01)
[2018-05-02] MEDS: INSULIN LISPRO 100 UNITS/ML SUBCUT SCH ×4 (08:02→20:34)
[2018-05-02] MEDS: BUDESONIDE 0.5MG/2ML NEB HHN SCH ×2 (08:33→20:56)
[2018-05-02] MEDS ORDERED: ONDANSETRON HCL 4MG/2ML INJ IV PRN (13:15)
[2018-05-02] MEDS: CEFTRIAXONE 1,000 MG in DEXTROSE 5% WATER 50 ML IV SCH (17:00)
[2018-05-02] MEDS: MONTELUKAST SODIUM 10MG TABLET PO SCH (17:00)
[2018-05-02] MEDS: ATORVASTATIN CALCIUM 20MG TABLET PO SCH (20:31)
[2018-05-02] MEDS: AZITHROMYCIN 500 MG in DEXT 5% WATER 250 ML IV SCH (22:40)
[2018-05-02] MEDS: TEMAZEPAM 15MG CAPSULE PO PRN (22:58)
[2018-05-03] VITALS (14 sets, daily range): BP systolic 132–157; BP diastolic 68–94
[2018-05-03] MEDS: IPRATROPIUM/ALBUTEROL 0.5-3(2.5)MG/3ML NEB HHN SCH ×6 (00:48→20:12)
[2018-05-03] MEDS: MORPHINE SULFATE 4 MG/ML CPJ (NOT FOR IM USE) IV PRN ×4 (05:02→22:10)
[2018-05-03] MEDS: METHYLPREDNISOLONE SOD SUCC 40 MG/ML VIAL IV SCH ×3 (06:37→21:36)
[2018-05-03] MEDS: DIPHENHYDRAMINE 50MG/ML VIAL IV PRN ×3 (06:37→21:36)
[2018-05-03] MEDS: BLOOD SUGAR DIAGNOSTIC STRIP TEST SCH ×4 (06:38→21:19)
[2018-05-03] MEDS: INSULIN LISPRO 100 UNITS/ML SUBCUT SCH ×4 (07:50→21:36)
[2018-05-03] MEDS: BUDESONIDE 0.5MG/2ML NEB HHN SCH ×2 (08:45→20:12)
[2018-05-03] MEDS: DULOXETINE HCL 30MG DR CAPSULE PO SCH (09:09)
[2018-05-03] MEDS: MULTIVITAMINS,THER W-MINERALS TABLET PO SCH (09:09)
[2018-05-03] MEDS: LORATADINE 10MG TABLET PO SCH (09:09)
[2018-05-03] MEDS: LOSARTAN POTASSIUM 50 MG TABLET PO SCH (09:10)
[2018-05-03] MEDS: DILTIAZEM HCL 180MG CAPSULE CD 24HR PO SCH (09:10)
[2018-05-03] MEDS: FAMOTIDINE 20MG TABLET PO SCH ×2 (09:10→21:16)
[2018-05-03] MEDS: ENOXAPARIN 30MG/0.3ML SYR SUBCUT SCH ×2 (09:12→21:17)
[2018-05-03] MEDS: MONTELUKAST SODIUM 10MG TABLET PO SCH (17:38)
[2018-05-03] MEDS: CEFTRIAXONE 1,000 MG in DEXTROSE 5% WATER 50 ML IV SCH (17:39)
[2018-05-03] MEDS: ATORVASTATIN CALCIUM 20MG TABLET PO SCH (21:16)
[2018-05-03] MEDS: AZITHROMYCIN 500 MG in DEXT 5% WATER 250 ML IV SCH (21:16)
[2018-05-03] MEDS: TEMAZEPAM 15MG CAPSULE PO PRN (22:55)
[2018-05-04] VITALS (12 sets, daily range): BP systolic 129–155; BP diastolic 62–95
[2018-05-04] MEDS: IPRATROPIUM/ALBUTEROL 0.5-3(2.5)MG/3ML NEB HHN SCH ×7 (00:44→20:31)
[2018-05-04] MEDS: METHYLPREDNISOLONE SOD SUCC 40 MG/ML VIAL IV SCH ×2 (06:20→13:58)
[2018-05-04] MEDS: MORPHINE SULFATE 4 MG/ML CPJ (NOT FOR IM USE) IV PRN ×7 (06:29→21:39)
[2018-05-04] MEDS: DIPHENHYDRAMINE 50MG/ML VIAL IV PRN ×2 (06:30→13:58)
[2018-05-04] MEDS: BLOOD SUGAR DIAGNOSTIC STRIP TEST SCH ×4 (06:30→21:14)
[2018-05-04] MEDS: FAMOTIDINE 20MG TABLET PO SCH ×2 (09:05→21:14)
[2018-05-04] MEDS: MULTIVITAMINS,THER W-MINERALS TABLET PO SCH (09:06)
[2018-05-04] MEDS: LOSARTAN POTASSIUM 50 MG TABLET PO SCH (09:06)
[2018-05-04] MEDS: DILTIAZEM HCL 180MG CAPSULE CD 24HR PO SCH (09:06)
[2018-05-04] MEDS: LORATADINE 10MG TABLET PO SCH (09:06)
[2018-05-04] MEDS: DULOXETINE HCL 30MG DR CAPSULE PO SCH (09:06)
[2018-05-04] MEDS: ENOXAPARIN 30MG/0.3ML SYR SUBCUT SCH ×2 (09:07→21:14)
[2018-05-04] MEDS: INSULIN LISPRO 100 UNITS/ML SUBCUT SCH ×4 (09:09→21:20)
[2018-05-04] MEDS: BUDESONIDE 0.5MG/2ML NEB HHN SCH ×3 (14:05→17:29)
[2018-05-04] MEDS: CEFTRIAXONE 1,000 MG in DEXTROSE 5% WATER 50 ML IV SCH (17:13)
[2018-05-04] MEDS: MONTELUKAST SODIUM 10MG TABLET PO SCH (17:13)
[2018-05-04 18:09] LABS: BASOPHILS % 0.1 % (0.0-2.0); EOSINOPHILS % 0.3 % (0.0-5.0); HEMOGLOBIN. 13.1 g/dL (14.0-18.0); LYMPHOCYTES % 11.2 % (20.0-50.0); MEAN CORPUSCULAR HEMOGLOBIN 27.6 pg (28.0-32.0); MEAN CORPUSCULAR VOLUME 86.5 fL (80.0-94.0); MONOCYTES % 4.7 % (2.0-8.0); NEUTROPHILS % 83.7 % (40.0-76.0); PLATELET 322 x1000/uL (130-400); RED BLOOD CELL COUNT 4.74 mill/uL (4.7-6.1); RED CELL DISTRIBUTION WIDTH 18.2 % (11.6-14.6)
[2018-05-04 18:15] LABS: CHLORIDE 103 mEq/L (98-107)
[2018-05-04] MEDS: ALPRAZOLAM 0.5 MG TABLET PO PRN (19:31)
[2018-05-04] MEDS ORDERED: ALPRAZOLAM 0.25 MG TABLET PO PRN (19:45)
[2018-05-04] MEDS ORDERED: TEMAZEPAM 15MG CAPSULE PO PRN (21:00)
[2018-05-04] MEDS: ATORVASTATIN CALCIUM 20MG TABLET PO SCH (21:14)
[2018-05-04] MEDS: AZITHROMYCIN 500 MG in DEXT 5% WATER 250 ML IV SCH (21:14)
[2018-05-05] VITALS (15 sets, daily range): BP systolic 118–162; BP diastolic 77–94
[2018-05-05] MEDS: MORPHINE SULFATE 4 MG/ML CPJ (NOT FOR IM USE) IV PRN ×4 (03:51→23:44)
[2018-05-05] MEDS: IPRATROPIUM/ALBUTEROL 0.5-3(2.5)MG/3ML NEB HHN SCH ×6 (03:58→21:41)
[2018-05-05] MEDS: BLOOD SUGAR DIAGNOSTIC STRIP TEST SCH ×4 (06:54→20:43)
[2018-05-05 07:15] LABS: HEMATOCRIT 39.9 % (42.0-52.0); HEMOGLOBIN 12.7 g/dL (14.0-18.0); MEAN CORPUSCULAR HEMOGLOBIN 27.9 pg (28.0-32.0); MEAN CORPUSCULAR VOLUME 87.5 fL (80.0-94.0); PLATELET 303 x1000/uL (130-400); RED BLOOD CELL COUNT 4.56 mill/uL (4.7-6.1); RED CELL DISTRIBUTION WIDTH 18.1 % (11.6-14.6)
[2018-05-05] MEDS: FAMOTIDINE 20MG TABLET PO SCH ×2 (07:37→20:29)
[2018-05-05] MEDS: LORATADINE 10MG TABLET PO SCH (07:37)
[2018-05-05] MEDS: DULOXETINE HCL 30MG DR CAPSULE PO SCH (07:37)
[2018-05-05] MEDS: MULTIVITAMINS,THER W-MINERALS TABLET PO SCH (07:38)
[2018-05-05] MEDS: DILTIAZEM HCL 180MG CAPSULE CD 24HR PO SCH (07:38)
[2018-05-05] MEDS: LOSARTAN POTASSIUM 50 MG TABLET PO SCH (07:38)
[2018-05-05] MEDS: ENOXAPARIN 30MG/0.3ML SYR SUBCUT SCH ×2 (07:39→20:46)
[2018-05-05] MEDS: INSULIN LISPRO 100 UNITS/ML SUBCUT SCH ×4 (07:40→20:43)
[2018-05-05 07:53] LABS: CHLORIDE 101 mEq/L (98-107)
[2018-05-05] MEDS: DIPHENHYDRAMINE 50MG/ML VIAL IV PRN ×2 (09:17→20:29)
[2018-05-05] MEDS: METHYLPREDNISOLONE SOD SUCC 40 MG/ML VIAL IV SCH ×2 (09:18→20:29)
[2018-05-05] MEDS: ALPRAZOLAM 0.5 MG TABLET PO PRN (10:40)
[2018-05-05] MEDS: MONTELUKAST SODIUM 10MG TABLET PO SCH (17:01)
[2018-05-05] MEDS: CEFTRIAXONE 1,000 MG in DEXTROSE 5% WATER 50 ML IV SCH (17:32)
[2018-05-05] MEDS: AZITHROMYCIN 500 MG in DEXT 5% WATER 250 ML IV SCH (20:29)
[2018-05-05] MEDS: ATORVASTATIN CALCIUM 20MG TABLET PO SCH (20:29)
[2018-05-06] VITALS (10 sets, daily range): BP systolic 117–157; BP diastolic 69–93
[2018-05-06] MEDS: IPRATROPIUM/ALBUTEROL 0.5-3(2.5)MG/3ML NEB HHN SCH ×3 (02:27→11:32)
[2018-05-06] MEDS: MORPHINE SULFATE 4 MG/ML CPJ (NOT FOR IM USE) IV PRN (06:23)
[2018-05-06] MEDS: BLOOD SUGAR DIAGNOSTIC STRIP TEST SCH ×2 (06:23→11:50)
[2018-05-06 07:36] LABS: HEMATOCRIT 42.2 % (42.0-52.0); HEMOGLOBIN 13.4 g/dL (14.0-18.0); MEAN CORPUSCULAR HEMOGLOBIN 27.6 pg (28.0-32.0); MEAN CORPUSCULAR VOLUME 87.2 fL (80.0-94.0); PLATELET 326 x1000/uL (130-400); RED BLOOD CELL COUNT 4.84 mill/uL (4.7-6.1); RED CELL DISTRIBUTION WIDTH 17.9 % (11.6-14.6)
[2018-05-06 07:39] LABS: CHLORIDE 103 mEq/L (98-107)
[2018-05-06] MEDS: DULOXETINE HCL 30MG DR CAPSULE PO SCH (08:04)
[2018-05-06] MEDS: METHYLPREDNISOLONE SOD SUCC 40 MG/ML VIAL IV SCH (08:04)
[2018-05-06] MEDS: DILTIAZEM HCL 180MG CAPSULE CD 24HR PO SCH (08:05)
[2018-05-06] MEDS: MULTIVITAMINS,THER W-MINERALS TABLET PO SCH (08:05)
[2018-05-06] MEDS: ENOXAPARIN 30MG/0.3ML SYR SUBCUT SCH (08:05)
[2018-05-06] MEDS: FAMOTIDINE 20MG TABLET PO SCH (08:05)
[2018-05-06] MEDS: INSULIN LISPRO 100 UNITS/ML SUBCUT SCH ×2 (08:07→12:20)
[2018-05-06] MEDS: LORATADINE 10MG TABLET PO SCH (08:10)
[2018-05-06] MEDS: LOSARTAN POTASSIUM 50 MG TABLET PO SCH (08:10)
[2018-05-06] MEDS: DIPHENHYDRAMINE 50MG/ML VIAL IV PRN (09:13)
[2018-05-06] MEDS ORDERED: MORPHINE SULFATE 4 MG/ML CPJ (NOT FOR IM USE) IV PRN (13:30)
== END 2018-05-06 16:25 | disposition home or self-care (01) | DRG 193 ==
LOC: ER 21:05 → 3WST 04-30 00:09 → EDBEDREQ 04-30 00:09 → EDBEDREQTM 04-30 00:09 → EDBEDREQSVC 04-30 00:09 → EDBEDREQDT 04-30 00:09 → ENRESERV 04-30 19:30
PROVIDERS: ADMIT Internal Medicine; ATTEND Internal Medicine
PROC: 5A09357 Assistance with Respiratory Ventilation, Less than 24 Consecutive Hours, Continuous Positive Airway Pressure (ICD-10-PCS; principal; 2018-04-30)
PROC: 5A09357 Assistance with Respiratory Ventilation, Less than 24 Consecutive Hours, Continuous Positive Airway Pressure (ICD-10-PCS; 2018-05-01)
PROC: 5A09357 Assistance with Respiratory Ventilation, Less than 24 Consecutive Hours, Continuous Positive Airway Pressure (ICD-10-PCS; 2018-05-02)
PROC: 5A09357 Assistance with Respiratory Ventilation, Less than 24 Consecutive Hours, Continuous Positive Airway Pressure (ICD-10-PCS; 2018-05-03)
PROC: 5A09357 Assistance with Respiratory Ventilation, Less than 24 Consecutive Hours, Continuous Positive Airway Pressure (ICD-10-PCS; 2018-05-04)
PROC: 5A09357 Assistance with Respiratory Ventilation, Less than 24 Consecutive Hours, Continuous Positive Airway Pressure (ICD-10-PCS; 2018-05-05)
PROC: 5A09357 Assistance with Respiratory Ventilation, Less than 24 Consecutive Hours, Continuous Positive Airway Pressure (ICD-10-PCS; 2018-05-06)
DX: J18.9 Pneumonia, unspecified organism (principal); J96.20 Acute and chronic respiratory failure, unspecified whether with hypoxia or hypercapnia; I50.33 Acute on chronic diastolic (congestive) heart failure; F11.20 Opioid dependence, uncomplicated; J45.901 Unspecified asthma with (acute) exacerbation; E66.2 Morbid (severe) obesity with alveolar hypoventilation; Z68.41 Body mass index [BMI] 40.0-44.9, adult; I11.0 Hypertensive heart disease with heart failure; E11.9 Type 2 diabetes mellitus without complications; F41.9 Anxiety disorder, unspecified; J06.9 Acute upper respiratory infection, unspecified; T38.0X5A Adverse effect of glucocorticoids and synthetic analogues, initial encounter; E78.5 Hyperlipidemia, unspecified; D72.829 Elevated white blood cell count, unspecified; G89.29 Other chronic pain; M54.9 Dorsalgia, unspecified; M19.90 Unspecified osteoarthritis, unspecified site; M54.5 Low back pain; Z88.5 Allergy status to narcotic agent; Z88.6 Allergy status to analgesic agent; Z88.8 Allergy status to other drugs, medicaments and biological substances; Z99.81 Dependence on supplemental oxygen; Z90.49 Acquired absence of other specified parts of digestive tract; Z79.899 Other long term (current) drug therapy; Y92.89 Other specified places as the place of occurrence of the external cause
CPT/HCPCS: 36415; 36600; 71045; 80048; 82375; 82805; 82962; 83036; 84145; 85027; 87804; 93005; 94640; 94644; 94660; 96365; 96375; 96376; 97116; 97162; 99285; J0456; J0696; J1200; J1650; J1815; J2270; J2405; J2920; J2930; J3475; J7040; J7050; J7060; J7611; J7620; J7626; Q0163

== ENCOUNTER 2018-10-02 13:50 | Inpatient (IN) | payer OTHER ==
[~2018-10-02] VITALS: Ht 167.6 cm; Wt 127.9 kg
[~2018-10-02 13:50] MED LIST changes: +APIX5TAB MT; -ATOR20TA PO; +ATOR20TA65 MT; +CLOP75TA4 MT; -DILT180C66 PO; +DILT180T11 MT; +DULO30CA2 MT; -DULO30CA2 PO; +FERR325T6 MT; +ISOS60TA4 MT; -LOSA50TA20 PO; +LOSA50TA41 MT; -MONT10TA21 PO; +MONT10TA24 MT; -MULT-1008 PO; +MULT-1146 MT; +NITR0.4T49 SL
[2018-10-02] MEDS ORDERED: SODIUM CHLORIDE 0.9% 500 ML IV ONE (15:16)
[2018-10-02] MEDS ORDERED: METHYLPREDNISOLONE SOD SUCC 125 MG/2 ML VIAL IV STA (15:16)
[2018-10-02] MEDS ORDERED: MORPHINE SULFATE 4 MG/ML CPJ (NOT FOR IM USE) IV STA (15:16)
[2018-10-02] MEDS ORDERED: ONDANSETRON HCL 4MG/2ML INJ IV STA (15:16)
[2018-10-02] MEDS ORDERED: MAGNESIUM 2 G PREMIX 50 ML IV ONE (15:30)
[2018-10-02] MEDS ORDERED: LEVOFLOXACIN 750MG PREMIX 150 ML IV ONE (15:30)
[2018-10-02] MEDS ORDERED: IPRATROPIUM/ALBUTEROL 0.5-3(2.5)MG/3ML NEB HHN ONE (15:30)
[2018-10-02 16:04] LABS: BASOPHILS % 0.8 % (0.0-2.0); EOSINOPHILS % 1.7 % (0.0-5.0); HEMOGLOBIN. 14.5 g/dL (14.0-18.0); LYMPHOCYTES % 28.3 % (20.0-50.0); MEAN CORPUSCULAR HEMOGLOBIN 29.9 pg (28.0-32.0); MEAN CORPUSCULAR VOLUME 90.7 fL (80.0-94.0); MEAN PLATELET VOLUME 8.4 fl (7.4-10.4); MONOCYTES % 9.8 % (2.0-8.0); NEUTROPHILS % 59.4 % (40.0-76.0); PLATELET 354 x1000/uL (130-400); RED BLOOD CELL COUNT 4.85 mill/uL (4.7-6.1); RED CELL DISTRIBUTION WIDTH 20.4 % (11.6-14.6)
[2018-10-02 16:09] LABS: CHLORIDE 109 mEq/L (98-107)
[2018-10-02 16:11] LABS: PROTHROMBIN TIME 10.5 sec (9.6-11.0)
[2018-10-02] MEDS ORDERED: DIPHENHYDRAMINE 50MG/ML VIAL IV ONE ×2 (16:15→17:30)
[2018-10-02 16:29] LABS: BG BASE EXCESS -3.8 mmol/L (-2.0-2.0); BG CARBOXYHEMOGLOBIN 0.3 % (0.5-1.5); BG DEOXYHEMOGLOBIN 5.7 % (0.0-5.0); BG FRACTION INSPIRED OXYGEN 28; BG HCO3 ACT 20.2 mmol/L (22.0-26.0); BG METHEMOGLOBIN 0.4 % (0.0-1.5); BG OXYGEN SATURATION 94.3 % (92.0-98.5); BG OXYHEMOGLOBIN 93.6 % (94.0-97.0); BG PCO2 34.1 mmHg (35.0-45.0); BG PH 7.391 (7.350-7.450); BG PO2 72.9 mmHg (75.0-100.0); BG SAMPLE SITE RIGHT RADIAL; BG TOTAL HEMOGLOBIN 14.6 g/dL (12.0-18.0); BG VENT MODE NASAL CANNULA
[2018-10-02] MEDS ORDERED: ONDANSETRON HCL 4MG/2ML INJ IV ONE (17:30)
[2018-10-02] MEDS ORDERED: MORPHINE SULFATE 4 MG/ML CPJ (NOT FOR IM USE) IV ONE (17:30)
[2018-10-02 21:10] VITALS: BP 139/86
[2018-10-02 21:30] VITALS: BP 139/86
[2018-10-02] MEDS ORDERED: MEDICATION NOT ON FORMULARY EA (Isosorbide Mononitrate (Isosorbide Mononitrate Er) 1 TAB MT SCH (23:15)
[2018-10-02] MEDS ORDERED: IPRATROPIUM/ALBUTEROL 0.5-3(2.5)MG/3ML NEB HHN PRN (23:30)
[2018-10-03] VITALS: BP 138/84
[2018-10-03] MEDS ORDERED: DILTIAZEM HCL 180MG CAPSULE CD 24HR PO SCH
[2018-10-03] MEDS: DIPHENHYDRAMINE 50MG CAPSULE PO PRN ×2 (00:51→22:40)
[2018-10-03] MEDS ORDERED: MEDICATION NOT ON FORMULARY EA (Isosorbide Mononitrate (Isosorbide Mononitrate Er) 1 TAB MT SCH (01:00)
[2018-10-03 04:00] VITALS: BP 132/79
[2018-10-03 08:00] VITALS: BP 130/86
[2018-10-03] MEDS: DILTIAZEM HCL 180MG CAPSULE CD 24HR PO SCH ×2 (08:55→20:39)
[2018-10-03] MEDS: MULTIVITAMINS,THER W-MINERALS TABLET PO SCH (08:56)
[2018-10-03] MEDS: LOSARTAN POTASSIUM 50 MG TABLET PO SCH (08:56)
[2018-10-03] MEDS: DULOXETINE HCL 30MG DR CAPSULE PO SCH (08:56)
[2018-10-03] MEDS ORDERED: PREDNISONE 20MG TABLET PO SCH (09:00)
[2018-10-03 10:08] LABS: BASOPHILS % 0.3 % (0.0-2.0); HEMATOCRIT. 41.4 % (42.0-52.0); HEMOGLOBIN. 13.7 g/dL (14.0-18.0); LYMPHOCYTES % 17.4 % (20.0-50.0); MEAN CORPUSCULAR HEMOGLOBIN 30.4 pg (28.0-32.0); MEAN CORPUSCULAR VOLUME 91.6 fL (80.0-94.0); MEAN PLATELET VOLUME 8.9 fl (7.4-10.4); MONOCYTES % 2.6 % (2.0-8.0); NEUTROPHILS % 79.7 % (40.0-76.0); PLATELET 338 x1000/uL (130-400); RED BLOOD CELL COUNT 4.52 mill/uL (4.7-6.1); RED CELL DISTRIBUTION WIDTH 20.1 % (11.6-14.6)
[2018-10-03 10:09] LABS: CHLORIDE 106 mEq/L (98-107)
[2018-10-03 12:00] VITALS: BP 128/82
[2018-10-03] MEDS ORDERED: METHYLPREDNISOLONE SOD SUCC 40 MG/ML VIAL IV SCH (12:35)
[2018-10-03] MEDS: DIPHENHYDRAMINE 50MG/ML VIAL IV PRN ×2 (13:33→19:36)
[2018-10-03] MEDS ORDERED: ALPRAZOLAM 0.5 MG TABLET PO PRN ×2 (13:45→17:00)
[2018-10-03] MEDS ORDERED: DEXTROSE 50% WATER 50ML SYRINGE IV PRN (13:45)
[2018-10-03] MEDS: LEVOFLOXACIN 500MG TABLET PO SCH (15:33)
[2018-10-03 16:00] VITALS: BP 134/80
[2018-10-03] MEDS: APIXABAN 5 MG TABLET PO SCH (17:22)
[2018-10-03] MEDS: MONTELUKAST SODIUM 10MG TABLET PO SCH (17:22)
[2018-10-03] MEDS: BLOOD SUGAR DIAGNOSTIC STRIP TEST SCH ×2 (17:50→20:29)
[2018-10-03] MEDS: INSULIN LISPRO 100 UNITS/ML SUBCUT SCH ×2 (17:52→20:42)
[2018-10-03 20:00] VITALS: BP 118/68
[2018-10-03] MEDS: ATORVASTATIN CALCIUM 20MG TABLET PO SCH (20:39)
[2018-10-03] MEDS: ISOSORBIDE MONONITRATE 60MG TABLET SR 24HR PO SCH (20:39)
[2018-10-03] MEDS ORDERED: ISOSORBIDE MONONITRATE 60MG TABLET SR 24HR PO SCH (21:00)
[2018-10-03] MEDS: MORPHINE SULFATE 2 MG/ML CPJ (NOT FOR IM USE) IV PRN (21:39)
[2018-10-04] VITALS (7 sets, daily range): BP systolic 97–120; BP diastolic 51–79
[2018-10-04] MEDS: METHYLPREDNISOLONE SOD SUCC 40 MG/ML VIAL IV SCH ×2 (00:12→12:35)
[2018-10-04] MEDS: MORPHINE SULFATE 2 MG/ML CPJ (NOT FOR IM USE) IV PRN ×5 (05:58→21:47)
[2018-10-04] MEDS: INSULIN LISPRO 100 UNITS/ML SUBCUT SCH ×4 (06:01→21:00)
[2018-10-04] MEDS: BLOOD SUGAR DIAGNOSTIC STRIP TEST SCH ×4 (06:01→21:24)
[2018-10-04] MEDS: DIPHENHYDRAMINE 50MG/ML VIAL IV PRN ×3 (06:37→18:54)
[2018-10-04] MEDS: LOSARTAN POTASSIUM 50 MG TABLET PO SCH (08:18)
[2018-10-04] MEDS: MULTIVITAMINS,THER W-MINERALS TABLET PO SCH (08:18)
[2018-10-04] MEDS: CLOPIDOGREL 75MG TABLET PO SCH (08:18)
[2018-10-04] MEDS: DULOXETINE HCL 30MG DR CAPSULE PO SCH (08:18)
[2018-10-04] MEDS: APIXABAN 5 MG TABLET PO SCH ×2 (08:19→16:10)
[2018-10-04 09:37] LABS: HEMATOCRIT 38.2 % (42.0-52.0); HEMOGLOBIN 12.4 g/dL (14.0-18.0); MEAN CORPUSCULAR HEMOGLOBIN 29.7 pg (28.0-32.0); MEAN CORPUSCULAR VOLUME 91.5 fL (80.0-94.0); PLATELET 308 x1000/uL (130-400); RED BLOOD CELL COUNT 4.18 mill/uL (4.7-6.1); RED CELL DISTRIBUTION WIDTH 20.2 % (11.6-14.6)
[2018-10-04 09:57] LABS: CHLORIDE 105 mEq/L (98-107)
[2018-10-04] MEDS ORDERED: ONDANSETRON HCL 4MG/2ML INJ IV PRN (12:30)
[2018-10-04] MEDS ORDERED: INSULIN GLARGINE UD 100 UNITS/ML SYR SUBCUT NR (12:30)
[2018-10-04] MEDS ORDERED: DEXT 5%/0.45% NACL KCL 10MEQ/L 1,000 ML IV SCH (14:00)
[2018-10-04] MEDS: MONTELUKAST SODIUM 10MG TABLET PO SCH (16:09)
[2018-10-04] MEDS: LEVOFLOXACIN 500MG TABLET PO SCH (16:09)
[2018-10-04] MEDS: ALPRAZOLAM 0.5 MG TABLET PO PRN (16:10)
[2018-10-04] MEDS: PANTOPRAZOLE SODIUM 40 MG/VIAL IV SCH (18:47)
[2018-10-04] MEDS: ISOSORBIDE MONONITRATE 60MG TABLET SR 24HR PO SCH (21:37)
[2018-10-04] MEDS: ATORVASTATIN CALCIUM 20MG TABLET PO SCH (21:37)
[2018-10-04] MEDS: DILTIAZEM HCL 180MG CAPSULE CD 24HR PO SCH (21:38)
[2018-10-05] VITALS: BP 125/75
[2018-10-05] MEDS: MORPHINE SULFATE 2 MG/ML CPJ (NOT FOR IM USE) IV PRN ×4 (02:10→22:55)
[2018-10-05] MEDS: DIPHENHYDRAMINE 50MG/ML VIAL IV PRN ×3 (02:14→18:29)
[2018-10-05 04:00] VITALS: BP 122/75
[2018-10-05] MEDS: ALPRAZOLAM 0.5 MG TABLET PO PRN ×3 (04:24→22:54)
[2018-10-05] MEDS: BLOOD SUGAR DIAGNOSTIC STRIP TEST SCH ×4 (06:27→21:59)
[2018-10-05] MEDS: INSULIN LISPRO 100 UNITS/ML SUBCUT SCH ×4 (06:28→22:09)
[2018-10-05 07:58] VITALS: BP 103/59
[2018-10-05] MEDS: PANTOPRAZOLE SODIUM 40 MG/VIAL IV SCH ×2 (08:27→22:00)
[2018-10-05] MEDS: METHYLPREDNISOLONE SOD SUCC 40 MG/ML VIAL IV SCH (08:27)
[2018-10-05] MEDS: APIXABAN 5 MG TABLET PO SCH (08:28)
[2018-10-05] MEDS: CLOPIDOGREL 75MG TABLET PO SCH (08:28)
[2018-10-05] MEDS: DULOXETINE HCL 30MG DR CAPSULE PO SCH (08:29)
[2018-10-05] MEDS: LOSARTAN POTASSIUM 50 MG TABLET PO SCH (08:29)
[2018-10-05] MEDS: MULTIVITAMINS,THER W-MINERALS TABLET PO SCH (08:29)
[2018-10-05 08:57] LABS: BASOPHILS % 0.3 % (0.0-2.0); HEMATOCRIT. 37.3 % (42.0-52.0); HEMOGLOBIN. 12.2 g/dL (14.0-18.0); LYMPHOCYTES % 12.1 % (20.0-50.0); MEAN CORPUSCULAR HEMOGLOBIN 29.7 pg (28.0-32.0); MEAN CORPUSCULAR VOLUME 90.8 fL (80.0-94.0); MEAN PLATELET VOLUME 9.4 fl (7.4-10.4); MONOCYTES % 4.3 % (2.0-8.0); NEUTROPHILS % 83.3 % (40.0-76.0); PLATELET 286 x1000/uL (130-400); RED BLOOD CELL COUNT 4.11 mill/uL (4.7-6.1)
[2018-10-05 08:58] LABS: INR 1.1; PARTIAL THROMBOPLASTIN TIME 27.2 sec (23.4-31.0); PROTHROMBIN TIME 11.1 sec (9.6-11.0)
[2018-10-05 09:14] LABS: CHLORIDE 106 mEq/L (98-107)
[2018-10-05] MEDS ORDERED: BACTERIOSTATIC SODIUM CHLORIDE 0.9% 30ML VIAL IJ ONE (09:52)
[2018-10-05 12:00] VITALS: BP 129/80
[2018-10-05] MEDS ORDERED: SIMETHICONE 40 MG/0.6 ML 30ML ONE (15:15)
[2018-10-05] MEDS ORDERED: FENTANYL CITRATE/PF 50MCG/ML 2ML VIAL ONE (15:15)
[2018-10-05] MEDS ORDERED: MIDAZOLAM HCL 5 MG/5 ML VIAL ONE ×2 (15:15→15:39)
[2018-10-05] MEDS ORDERED: FENTANYL CITRATE/PF 50MCG/ML 2ML VIAL IV PRN (15:30)
[2018-10-05] MEDS ORDERED: MIDAZOLAM HCL 5 MG/5 ML VIAL IV PRN (15:31)
[2018-10-05 17:18] VITALS: BP 128/70
[2018-10-05] MEDS: MONTELUKAST SODIUM 10MG TABLET PO SCH (18:03)
[2018-10-05] MEDS: LEVOFLOXACIN 500MG TABLET PO SCH (18:03)
[2018-10-05 18:07] LABS: HEMATOCRIT 40.1 % (42.0-52.0); HEMOGLOBIN 12.8 g/dL (14.0-18.0)
[2018-10-05 20:00] VITALS: BP 134/84
[2018-10-05] MEDS: ATORVASTATIN CALCIUM 20MG TABLET PO SCH (22:01)
[2018-10-05] MEDS: ISOSORBIDE MONONITRATE 60MG TABLET SR 24HR PO SCH (22:01)
[2018-10-05] MEDS: DILTIAZEM HCL 180MG CAPSULE CD 24HR PO SCH (22:03)
[2018-10-05] MEDS: DIPHENHYDRAMINE 50MG CAPSULE PO PRN (22:54)
[2018-10-06] VITALS (10 sets, daily range): BP systolic 107–157; BP diastolic 62–102
[2018-10-06] MEDS: MORPHINE SULFATE 2 MG/ML CPJ (NOT FOR IM USE) IV PRN ×2 (05:18→09:41)
[2018-10-06] MEDS: DIPHENHYDRAMINE 50MG/ML VIAL IV PRN (05:23)
[2018-10-06] MEDS: BLOOD SUGAR DIAGNOSTIC STRIP TEST SCH ×4 (06:37→20:38)
[2018-10-06] MEDS: INSULIN LISPRO 100 UNITS/ML SUBCUT SCH ×4 (06:39→20:35)
[2018-10-06 07:30] LABS: HEMATOCRIT 41.1 % (42.0-52.0); HEMOGLOBIN 13.4 g/dL (14.0-18.0); MEAN CORPUSCULAR HEMOGLOBIN 29.8 pg (28.0-32.0); MEAN CORPUSCULAR VOLUME 91.4 fL (80.0-94.0); PLATELET 297 x1000/uL (130-400); RED CELL DISTRIBUTION WIDTH 19.6 % (11.6-14.6)
[2018-10-06] MEDS: LOSARTAN POTASSIUM 50 MG TABLET PO SCH (09:00)
[2018-10-06] MEDS: PANTOPRAZOLE SODIUM 40 MG/VIAL IV SCH ×2 (09:40→20:35)
[2018-10-06] MEDS: DULOXETINE HCL 30MG DR CAPSULE PO SCH (09:40)
[2018-10-06] MEDS: MULTIVITAMINS,THER W-MINERALS TABLET PO SCH (09:40)
[2018-10-06] MEDS: METHYLPREDNISOLONE SOD SUCC 40 MG/ML VIAL IV SCH (09:40)
[2018-10-06 09:59] LABS: CHLORIDE 105 mEq/L (98-107)
[2018-10-06] MEDS ORDERED: LIDOCAINE HCL/PF 1% 2ML VIAL ONE (10:02)
[2018-10-06 10:15] LABS: CREATINE KINASE 21 IU/L (39-308)
[2018-10-06 10:19] LABS: CREATINE KINASE MB FRACTION < 1.0 ng/mL (0.5-3.6)
[2018-10-06 12:16] LABS: BG BASE EXCESS 0.3 mmol/L (-2.0-2.0); BG CARBOXYHEMOGLOBIN 0.1 % (0.5-1.5); BG HCO3 ACT 25.3 mmol/L (22.0-26.0); BG METHEMOGLOBIN 0.1 % (0.0-1.5); BG OXYHEMOGLOBIN 96.8 % (94.0-97.0); BG PCO2 41.8 mmHg (35.0-45.0); BG PH 7.399 (7.350-7.450); BG PO2 93.3 mmHg (75.0-100.0); BG SAMPLE SITE RIGHT RADIAL; BG TOTAL HEMOGLOBIN 13.8 g/dL (12.0-18.0); BG VENT MODE NASAL CANNULA
[2018-10-06] MEDS: SODIUM CHLORIDE 0.45% 1,000 ML IV SCH (13:22)
[2018-10-06] MEDS ORDERED: CLOPIDOGREL 75MG TABLET PO SCH (13:30)
[2018-10-06] MEDS ORDERED: APIXABAN 2.5 MG TABLET PO SCH (13:30)
[2018-10-06] MEDS: LEVOFLOXACIN 500MG TABLET PO SCH (16:58)
[2018-10-06] MEDS: MONTELUKAST SODIUM 10MG TABLET PO SCH (16:58)
[2018-10-06 17:36] LABS: HEMATOCRIT 41.7 % (42.0-52.0); HEMOGLOBIN 13.7 g/dL (14.0-18.0)
[2018-10-06 17:51] LABS: *BENZODIAZEPINES SCREEN URINE PRESUMTIVE POSITIVE (NEGATIVE)
[2018-10-06 17:52] LABS: *AMPHETAMINES SCREEN URINE NEGATIVE (NEGATIVE); *BARBITURATES SCREEN URINE NEGATIVE (NEGATIVE); *COCAINE SCREEN URINE NEGATIVE (NEGATIVE); CANNABINOID URINE SCREEN NEGATIVE (NEGATIVE); METHADONE URINE SCREEN NEGATIVE (NEGATIVE); OPIATES URINE SCREEN PRESUMTIVE POSITIVE (NEGATIVE); PHENCYCLIDINE URINE SCREEN NEGATIVE (NEGATIVE)
[2018-10-06] MEDS: ACETAMINOPHEN 325MG TABLET PO PRN (20:36)
[2018-10-06] MEDS: DILTIAZEM HCL 180MG CAPSULE CD 24HR PO SCH (20:37)
[2018-10-06] MEDS: ATORVASTATIN CALCIUM 20MG TABLET PO SCH (20:37)
[2018-10-06] MEDS: ISOSORBIDE MONONITRATE 60MG TABLET SR 24HR PO SCH (20:38)
[2018-10-07] VITALS (11 sets, daily range): BP systolic 115–147; BP diastolic 62–100
[2018-10-07 01:02] LABS: HEMATOCRIT 39.5 % (42.0-52.0); HEMOGLOBIN 12.8 g/dL (14.0-18.0)
[2018-10-07] MEDS: SODIUM CHLORIDE 0.45% 1,000 ML IV SCH ×2 (02:19→15:53)
[2018-10-07] MEDS: INSULIN LISPRO 100 UNITS/ML SUBCUT SCH ×5 (06:37→20:36)
[2018-10-07] MEDS: BLOOD SUGAR DIAGNOSTIC STRIP TEST SCH ×4 (06:37→20:38)
[2018-10-07 06:52] LABS: HEMATOCRIT 38.3 % (42.0-52.0); HEMOGLOBIN 12.5 g/dL (14.0-18.0); MEAN CORPUSCULAR HEMOGLOBIN 29.7 pg (28.0-32.0); MEAN CORPUSCULAR VOLUME 91.3 fL (80.0-94.0); PLATELET 257 x1000/uL (130-400); RED BLOOD CELL COUNT 4.19 mill/uL (4.7-6.1); RED CELL DISTRIBUTION WIDTH 20.1 % (11.6-14.6)
[2018-10-07 07:07] LABS: CHLORIDE 106 mEq/L (98-107)
[2018-10-07] MEDS: LOSARTAN POTASSIUM 50 MG TABLET PO SCH (08:43)
[2018-10-07] MEDS: DULOXETINE HCL 30MG DR CAPSULE PO SCH (08:43)
[2018-10-07] MEDS: MULTIVITAMINS,THER W-MINERALS TABLET PO SCH (08:43)
[2018-10-07] MEDS: PANTOPRAZOLE SODIUM 40 MG/VIAL IV SCH ×2 (08:43→20:33)
[2018-10-07] MEDS: METHYLPREDNISOLONE SOD SUCC 40 MG/ML VIAL IV SCH (08:43)
[2018-10-07] MEDS: MORPHINE SULFATE 2 MG/ML CPJ (NOT FOR IM USE) IV PRN ×2 (13:12→20:38)
[2018-10-07] MEDS ORDERED: CLOPIDOGREL 75MG TABLET PO NR (13:45)
[2018-10-07] MEDS: LEVOFLOXACIN 500MG TABLET PO SCH (15:53)
[2018-10-07] MEDS: MONTELUKAST SODIUM 10MG TABLET PO SCH (17:35)
[2018-10-07] MEDS: CLOPIDOGREL 75MG TABLET PO SCH (20:33)
[2018-10-07] MEDS: ATORVASTATIN CALCIUM 20MG TABLET PO SCH (20:33)
[2018-10-07] MEDS: ISOSORBIDE MONONITRATE 60MG TABLET SR 24HR PO SCH (20:34)
[2018-10-07] MEDS: DILTIAZEM HCL 180MG CAPSULE CD 24HR PO SCH (20:35)
[2018-10-08] VITALS (11 sets, daily range): BP systolic 93–157; BP diastolic 55–104
[2018-10-08 07:03] LABS: HEMATOCRIT 38.8 % (42.0-52.0); HEMOGLOBIN 12.6 g/dL (14.0-18.0); MEAN CORPUSCULAR HEMOGLOBIN 29.4 pg (28.0-32.0); MEAN CORPUSCULAR VOLUME 90.5 fL (80.0-94.0); PLATELET 265 x1000/uL (130-400); RED BLOOD CELL COUNT 4.29 mill/uL (4.7-6.1); RED CELL DISTRIBUTION WIDTH 19.5 % (11.6-14.6)
[2018-10-08] MEDS: INSULIN LISPRO 100 UNITS/ML SUBCUT SCH ×4 (07:10→21:00)
[2018-10-08] MEDS: BLOOD SUGAR DIAGNOSTIC STRIP TEST SCH ×4 (07:10→20:00)
[2018-10-08] MEDS: PANTOPRAZOLE SODIUM 40 MG/VIAL IV SCH ×2 (08:01→20:46)
[2018-10-08] MEDS: METHYLPREDNISOLONE SOD SUCC 40 MG/ML VIAL IV SCH (08:01)
[2018-10-08] MEDS: CLOPIDOGREL 75MG TABLET PO SCH ×2 (08:01→16:13)
[2018-10-08] MEDS: DULOXETINE HCL 30MG DR CAPSULE PO SCH (08:01)
[2018-10-08] MEDS: LOSARTAN POTASSIUM 50 MG TABLET PO SCH (08:01)
[2018-10-08] MEDS: MULTIVITAMINS,THER W-MINERALS TABLET PO SCH (08:01)
[2018-10-08] MEDS: DIPHENHYDRAMINE 50MG/ML VIAL IV PRN (08:09)
[2018-10-08] MEDS: MORPHINE SULFATE 2 MG/ML CPJ (NOT FOR IM USE) IV PRN ×2 (08:41→13:06)
[2018-10-08] MEDS: APIXABAN 2.5 MG TABLET PO SCH ×2 (12:57→16:13)
[2018-10-08] MEDS: LEVOFLOXACIN 500MG TABLET PO SCH (15:17)
[2018-10-08] MEDS: MONTELUKAST SODIUM 10MG TABLET PO SCH (16:13)
[2018-10-08 16:24] LABS: CHLORIDE 103 mEq/L (98-107)
[2018-10-08 16:26] LABS: HEMOGLOBIN. 13.5 g/dL (14.0-18.0); MEAN CORPUSCULAR HEMOGLOBIN 29.3 pg (28.0-32.0); MEAN PLATELET VOLUME 9.4 fl (7.4-10.4); PLATELET 272 x1000/uL (130-400); RED BLOOD CELL COUNT 4.61 mill/uL (4.7-6.1); RED CELL DISTRIBUTION WIDTH 19.7 % (11.6-14.6)
[2018-10-08 16:47] LABS: PLATELET ESTIMATE NORMAL
[2018-10-08] MEDS: ISOSORBIDE MONONITRATE 60MG TABLET SR 24HR PO SCH (20:47)
[2018-10-08] MEDS: DILTIAZEM HCL 180MG CAPSULE CD 24HR PO SCH (20:48)
[2018-10-08] MEDS: ATORVASTATIN CALCIUM 20MG TABLET PO SCH (20:48)
[2018-10-08] MEDS: DIPHENHYDRAMINE 50MG CAPSULE PO PRN (20:48)
[2018-10-09] VITALS: BP_SYST 149; BP_DIAS 101; BP_DIAS 95
[2018-10-09 01:00] VITALS: BP 123/89
[2018-10-09] MEDS: ACETAMINOPHEN 325MG TABLET PO PRN (03:44)
[2018-10-09 04:00] VITALS: BP 128/86
[2018-10-09] MEDS: DIPHENHYDRAMINE 50MG/ML VIAL IV PRN ×2 (04:21→13:02)
[2018-10-09] MEDS: BLOOD SUGAR DIAGNOSTIC STRIP TEST SCH (06:40)
[2018-10-09 08:00] VITALS: BP 109/67
[2018-10-09] MEDS: LOSARTAN POTASSIUM 50 MG TABLET PO SCH ×2 (09:00→09:04)
[2018-10-09] MEDS: MULTIVITAMINS,THER W-MINERALS TABLET PO SCH (09:04)
[2018-10-09] MEDS: CLOPIDOGREL 75MG TABLET PO SCH (09:04)
[2018-10-09] MEDS: APIXABAN 2.5 MG TABLET PO SCH (09:04)
[2018-10-09] MEDS: INSULIN LISPRO 100 UNITS/ML SUBCUT SCH (09:06)
[2018-10-09 09:11] LABS: BASOPHILS % 0.4 % (0.0-2.0); EOSINOPHILS % 0.2 % (0.0-5.0); HEMATOCRIT. 40.9 % (42.0-52.0); HEMOGLOBIN. 13.1 g/dL (14.0-18.0); LYMPHOCYTES % 20.1 % (20.0-50.0); MEAN CORPUSCULAR VOLUME 90.6 fL (80.0-94.0); MEAN PLATELET VOLUME 9.3 fl (7.4-10.4); MONOCYTES % 8.8 % (2.0-8.0); NEUTROPHILS % 70.5 % (40.0-76.0); PLATELET 262 x1000/uL (130-400); RED BLOOD CELL COUNT 4.51 mill/uL (4.7-6.1); RED CELL DISTRIBUTION WIDTH 20.4 % (11.6-14.6)
[2018-10-09 09:28] LABS: CHLORIDE 105 mEq/L (98-107)
[2018-10-09] MEDS: METHYLPREDNISOLONE SOD SUCC 40 MG/ML VIAL IV SCH (10:30)
[2018-10-09] MEDS: PANTOPRAZOLE SODIUM 40 MG/VIAL IV SCH (10:31)
[2018-10-09 11:14] VITALS: BP 109/67
[2018-10-09 12:00] VITALS: BP 143/77
[2018-10-09] MEDS: DULOXETINE HCL 30MG DR CAPSULE PO SCH (12:34)
[2018-10-09] MEDS ORDERED: FAMOTIDINE 20MG/2ML VIAL IV SCH (21:00)
== END 2018-10-09 14:30 | disposition home or self-care (01) | DRG 377 ==
LOC: ER 13:50 → 8WST 17:02 → EDBEDREQ 17:05 → EDBEDREQTM 17:06 → ENRESERV 20:18 → CANRESERV 20:18 → ENRESERV 20:39 → 3WST 10-06 14:38 → 6WST 10-09 00:58
PROVIDERS: ADMIT Internal Medicine; ATTEND Internal Medicine
PROC: 5A09357 Assistance with Respiratory Ventilation, Less than 24 Consecutive Hours, Continuous Positive Airway Pressure (ICD-10-PCS; 2018-10-02)
PROC: 5A09357 Assistance with Respiratory Ventilation, Less than 24 Consecutive Hours, Continuous Positive Airway Pressure (ICD-10-PCS; 2018-10-03)
PROC: 5A09357 Assistance with Respiratory Ventilation, Less than 24 Consecutive Hours, Continuous Positive Airway Pressure (ICD-10-PCS; 2018-10-04)
PROC: 0DB68ZX Excision of Stomach, Via Natural or Artificial Opening Endoscopic, Diagnostic (ICD-10-PCS; principal; 2018-10-05)
PROC: 5A09357 Assistance with Respiratory Ventilation, Less than 24 Consecutive Hours, Continuous Positive Airway Pressure (ICD-10-PCS; 2018-10-05)
PROC: 5A09357 Assistance with Respiratory Ventilation, Less than 24 Consecutive Hours, Continuous Positive Airway Pressure (ICD-10-PCS; 2018-10-06)
PROC: 5A09357 Assistance with Respiratory Ventilation, Less than 24 Consecutive Hours, Continuous Positive Airway Pressure (ICD-10-PCS; 2018-10-07)
PROC: 5A09357 Assistance with Respiratory Ventilation, Less than 24 Consecutive Hours, Continuous Positive Airway Pressure (ICD-10-PCS; 2018-10-08)
DX: K29.51 Unspecified chronic gastritis with bleeding (principal); J96.20 Acute and chronic respiratory failure, unspecified whether with hypoxia or hypercapnia; I50.33 Acute on chronic diastolic (congestive) heart failure; J45.901 Unspecified asthma with (acute) exacerbation; J44.1 Chronic obstructive pulmonary disease with (acute) exacerbation; E66.2 Morbid (severe) obesity with alveolar hypoventilation; G93.40 Encephalopathy, unspecified; Z68.42 Body mass index [BMI] 45.0-49.9, adult; K92.0 Hematemesis; I11.0 Hypertensive heart disease with heart failure; I25.2 Old myocardial infarction; Z99.81 Dependence on supplemental oxygen; E11.65 Type 2 diabetes mellitus with hyperglycemia; E03.9 Hypothyroidism, unspecified; E78.00 Pure hypercholesterolemia, unspecified; E86.0 Dehydration; G89.29 Other chronic pain; I25.10 Atherosclerotic heart disease of native coronary artery without angina pectoris; F41.9 Anxiety disorder, unspecified; M54.9 Dorsalgia, unspecified; Z88.9 Allergy status to unspecified drugs, medicaments and biological substances; Z95.5 Presence of coronary angioplasty implant and graft; E83.41 Hypermagnesemia; M47.816 Spondylosis without myelopathy or radiculopathy, lumbar region; Z79.01 Long term (current) use of anticoagulants; Z79.02 Long term (current) use of antithrombotics/antiplatelets; Z88.6 Allergy status to analgesic agent; Z90.81 Acquired absence of spleen; Z98.1 Arthrodesis status; W18.30XA Fall on same level, unspecified, initial encounter; T38.0X5A Adverse effect of glucocorticoids and synthetic analogues, initial encounter; Y92.89 Other specified places as the place of occurrence of the external cause; Z88.5 Allergy status to narcotic agent
CPT/HCPCS: 36415; 36600; 70551; 71045; 73030; 74176; 80048; 80305; 82140; 82270; 82375; 82550; 82553; 82805; 82962; 83605; 83735; 83880; 84145; 84443; 84484; 85014; 85018; 85027; 88305; 88312; 88313; 93005; 94640; 94660; 96365; 96375; 96376; 97162; 99291; C9113; J1200; J1815; J1956; J2250; J2270; J2405; J2920; J2930; J3010; J3475; J3490; J7040; J7050; J7512; J7620; Q0163

== ENCOUNTER 2018-11-12 15:29 | Emergency (ER) | payer MEDICARE, OTHER ==
[~2018-11-12] VITALS: Ht 167.6 cm; Wt 117.0 kg
[~2018-11-12 15:29] MED LIST changes: +LOSA50TA3 PO
[2018-11-12] MEDS ORDERED: ONDANSETRON HCL 4MG/2ML INJ IV STA ×2 (17:55→19:46)
[2018-11-12] MEDS ORDERED: MORPHINE SULFATE 4 MG/ML CPJ (NOT FOR IM USE) IV STA ×2 (17:55→19:46)
[2018-11-12] MEDS ORDERED: HYDROCODONE/ACETAMINOPHEN 5/325MG TABLET PO ONE (21:00)
[2018-11-12 23:00] VITALS: BP 128/87
== END 2018-11-12 23:40 | disposition home or self-care (01) ==
LOC: ER 15:29
DX: S93.401A Sprain of unspecified ligament of right ankle, initial encounter (principal); W10.8XXA Fall (on) (from) other stairs and steps, initial encounter; Y93.01 Activity, walking, marching and hiking; Y92.89 Other specified places as the place of occurrence of the external cause; M54.5 Low back pain; M54.2 Cervicalgia; I10 Essential (primary) hypertension; Z88.8 Allergy status to other drugs, medicaments and biological substances; Z88.6 Allergy status to analgesic agent
CPT/HCPCS: 29515; 72125; 72131; 73610; 96374; 96375; 96376; 99291; J2270; J2405

== ENCOUNTER 2018-11-18 22:41 | Inpatient (IN) | payer OTHER ==
[~2018-11-18] VITALS: Ht 167.6 cm; Wt 146.5 kg
[2018-11-18] MEDS ORDERED: IPRATROPIUM BROMIDE (0.02%) 0.5MG/2.5ML NEB HHN STA (22:56)
[2018-11-18] MEDS ORDERED: ALBUTEROL (0.083%) 2.5MG/3ML NEB HHN STA (22:56)
[2018-11-18] MEDS ORDERED: METHYLPREDNISOLONE SOD SUCC 125 MG/2 ML VIAL IV STA (22:56)
[2018-11-18] MEDS ORDERED: MAGNESIUM 2 G PREMIX 50 ML IV ONE (23:00)
[2018-11-18] MEDS ORDERED: DIPHENHYDRAMINE 25MG CAPSULE PO ONE (23:15)
[2018-11-18] MEDS: NITROGLYCERIN 0.4MG TABLET SL SL PRN ×3 (23:17→23:33)
[2018-11-19] VITALS (10 sets, daily range): BP systolic 113–146; BP diastolic 62–94
[2018-11-19 00:04] LABS: BASOPHILS % 0.5 % (0.0-2.0); EOSINOPHILS % 1.7 % (0.0-5.0); HEMATOCRIT. 43.7 % (42.0-52.0); HEMOGLOBIN. 14.4 g/dL (14.0-18.0); MEAN CORPUSCULAR HEMOGLOBIN 29.8 pg (28.0-32.0); MEAN CORPUSCULAR VOLUME 90.5 fL (80.0-94.0); MEAN PLATELET VOLUME 8.2 fl (7.4-10.4); MONOCYTES % 9.2 % (2.0-8.0); NEUTROPHILS % 52.6 % (40.0-76.0); PLATELET 299 x1000/uL (130-400); RED BLOOD CELL COUNT 4.83 mill/uL (4.7-6.1); RED CELL DISTRIBUTION WIDTH 19.7 % (11.6-14.6)
[2018-11-19 00:07] LABS: CHLORIDE 104 mEq/L (98-107)
[2018-11-19] MEDS ORDERED: MORPHINE SULFATE 4 MG/ML CPJ (NOT FOR IM USE) IV ONE (00:15)
[2018-11-19] MEDS ORDERED: AZITHROMYCIN 500 MG in DEXT 5% WATER 250 ML IV SCH (00:30)
[2018-11-19] MEDS ORDERED: CEFTRIAXONE 1 G PREMIX 50 ML IV ONE (00:30)
[2018-11-19 01:22] LABS: PARTIAL THROMBOPLASTIN TIME 29.2 sec (23.4-31.0); PROTHROMBIN TIME 10.2 sec (9.6-11.0)
[2018-11-19] MEDS ORDERED: OXYCODONE HCL/ACETAMINOPHEN 5/325MG TABLET PO PRN (05:00)
[2018-11-19] MEDS ORDERED: DEXTROSE 50% WATER 50ML SYRINGE IV PRN (05:30)
[2018-11-19] MEDS ORDERED: IPRATROPIUM/ALBUTEROL 0.5-3(2.5)MG/3ML NEB HHN PRN (06:00)
[2018-11-19] MEDS: OMEPRAZOLE 20MG CAPSULE EXTENDED RELEASE PO SCH ×2 (06:22→17:49)
[2018-11-19] MEDS: DIPHENHYDRAMINE 50MG/ML VIAL IV PRN ×3 (06:22→18:38)
[2018-11-19] MEDS: INSULIN LISPRO 100 UNITS/ML SUBCUT SCH ×4 (06:27→21:00)
[2018-11-19] MEDS: BLOOD SUGAR DIAGNOSTIC STRIP TEST SCH ×4 (06:27→21:00)
[2018-11-19 06:45] LABS: CREATINE KINASE 52 IU/L (39-308)
[2018-11-19 06:46] LABS: CREATINE KINASE MB FRACTION 1.2 ng/mL (0.5-3.6)
[2018-11-19] MEDS: METHYLPREDNISOLONE SOD SUCC 40 MG/ML VIAL IV SCH ×2 (08:55→20:01)
[2018-11-19] MEDS: DILTIAZEM HCL 180MG CAPSULE CD 24HR PO SCH (08:56)
[2018-11-19] MEDS: APIXABAN 5 MG TABLET PO SCH ×2 (08:56→17:49)
[2018-11-19] MEDS: ISOSORBIDE MONONITRATE 60MG TABLET SR 24HR PO SCH (08:56)
[2018-11-19] MEDS: LOSARTAN POTASSIUM 50 MG TABLET PO SCH (08:56)
[2018-11-19] MEDS: DULOXETINE HCL 30MG DR CAPSULE PO SCH (08:56)
[2018-11-19] MEDS: FERROUS SULFATE 325MG TABLET PO SCH ×2 (08:56→17:49)
[2018-11-19] MEDS: CLOPIDOGREL 75MG TABLET PO SCH ×2 (08:56→17:50)
[2018-11-19] MEDS: MULTIVITAMINS,THER W-MINERALS TABLET PO SCH (08:57)
[2018-11-19] MEDS ORDERED: NON FORMULARY PATIENT HOME MED PO SCH (09:00)
[2018-11-19 11:42] LABS: BG BASE EXCESS -2.3 mmol/L (-2.0-2.0); BG BILEVEL POS AIRWAY PRESSURE ST=15/5; BG CARBOXYHEMOGLOBIN 0.3 % (0.5-1.5); BG DEOXYHEMOGLOBIN 2.5 % (0.0-5.0); BG FRACTION INSPIRED OXYGEN 30; BG HCO3 ACT 22.7 mmol/L (22.0-26.0); BG METHEMOGLOBIN 0.1 % (0.0-1.5); BG OXYGEN SATURATION 97.5 % (92.0-98.5); BG OXYHEMOGLOBIN 97.1 % (94.0-97.0); BG PCO2 39.9 mmHg (35.0-45.0); BG PH 7.372 (7.350-7.450); BG PO2 101.4 mmHg (75.0-100.0); BG PRESSURE SUPPORT 10; BG SAMPLE SITE LEFT RADIAL; BG TOTAL HEMOGLOBIN 14.2 g/dL (12.0-18.0); BG VENT MODE MASK - BIPAP; BG VENT RATE 16 set
[2018-11-19] MEDS ORDERED: MORPHINE SULFATE 2 MG/ML CPJ (NOT FOR IM USE) IV NR (13:15)
[2018-11-19 13:36] LABS: BASOPHILS % 0.1 % (0.0-2.0); HEMATOCRIT. 40.1 % (42.0-52.0); HEMOGLOBIN. 13.3 g/dL (14.0-18.0); LYMPHOCYTES % 19.5 % (20.0-50.0); MEAN CORPUSCULAR HEMOGLOBIN 30.3 pg (28.0-32.0); MEAN PLATELET VOLUME 8.4 fl (7.4-10.4); MONOCYTES % 2.1 % (2.0-8.0); NEUTROPHILS % 78.3 % (40.0-76.0); PLATELET 288 x1000/uL (130-400); RED CELL DISTRIBUTION WIDTH 20.1 % (11.6-14.6)
[2018-11-19 13:43] LABS: CHLORIDE 105 mEq/L (98-107)
[2018-11-19 13:52] LABS: CREATINE KINASE 50 IU/L (39-308)
[2018-11-19 13:55] LABS: CREATINE KINASE MB FRACTION 1.3 ng/mL (0.5-3.6)
[2018-11-19] MEDS: LEVOFLOXACIN 500MG PREMIX 100 ML IV SCH (15:38)
[2018-11-19] MEDS: MONTELUKAST SODIUM 10MG TABLET PO SCH (17:49)
[2018-11-19] MEDS: LIDOCAINE 5% PATCH TOP SCH (17:49)
[2018-11-19] MEDS ORDERED: DIPHENHYDRAMINE 50MG/ML VIAL IV PRN (18:00)
[2018-11-19 18:04] LABS: CREATINE KINASE 60 IU/L (39-308)
[2018-11-19 18:06] LABS: CREATINE KINASE MB FRACTION 1.4 ng/mL (0.5-3.6)
[2018-11-19] MEDS: MORPHINE SULFATE 2 MG/ML CPJ (NOT FOR IM USE) IV PRN (19:50)
[2018-11-19] MEDS: ATORVASTATIN CALCIUM 20MG TABLET PO SCH (20:01)
[2018-11-19] MEDS: ALPRAZOLAM 0.5 MG TABLET PO PRN (20:46)
[2018-11-19] MEDS: IPRATROPIUM/ALBUTEROL 0.5-3(2.5)MG/3ML NEB HHN SCH (21:05)
[2018-11-19] MEDS: BUDESONIDE 0.5MG/2ML NEB HHN SCH (21:05)
[2018-11-19] MEDS: ZOLPIDEM TARTRATE 5MG TABLET PO PRN (21:48)
[2018-11-19 23:55] LABS: CREATINE KINASE 51 IU/L (39-308)
[2018-11-19 23:56] LABS: CREATINE KINASE MB FRACTION 1.4 ng/mL (0.5-3.6)
[2018-11-20] VITALS (12 sets, daily range): BP systolic 93–144; BP diastolic 54–95
[2018-11-20] MEDS: IPRATROPIUM/ALBUTEROL 0.5-3(2.5)MG/3ML NEB HHN SCH ×4 (00:54→21:28)
[2018-11-20] MEDS: MORPHINE SULFATE 2 MG/ML CPJ (NOT FOR IM USE) IV PRN ×3 (05:09→17:47)
[2018-11-20] MEDS: OMEPRAZOLE 20MG CAPSULE EXTENDED RELEASE PO SCH (06:21)
[2018-11-20 06:35] LABS: HEMATOCRIT 38.9 % (42.0-52.0); MEAN CORPUSCULAR HEMOGLOBIN 30.6 pg (28.0-32.0); MEAN CORPUSCULAR VOLUME 91.6 fL (80.0-94.0); PLATELET 279 x1000/uL (130-400); RED BLOOD CELL COUNT 4.25 mill/uL (4.7-6.1); RED CELL DISTRIBUTION WIDTH 20.1 % (11.6-14.6)
[2018-11-20 06:44] LABS: CHLORIDE 107 mEq/L (98-107)
[2018-11-20] MEDS: BLOOD SUGAR DIAGNOSTIC STRIP TEST SCH ×4 (06:50→20:56)
[2018-11-20] MEDS: DULOXETINE HCL 30MG DR CAPSULE PO SCH (08:45)
[2018-11-20] MEDS: ISOSORBIDE MONONITRATE 60MG TABLET SR 24HR PO SCH (08:46)
[2018-11-20] MEDS: APIXABAN 5 MG TABLET PO SCH ×2 (08:46→16:01)
[2018-11-20] MEDS: MULTIVITAMINS,THER W-MINERALS TABLET PO SCH (08:47)
[2018-11-20] MEDS: CLOPIDOGREL 75MG TABLET PO SCH ×2 (08:47→16:01)
[2018-11-20] MEDS: FERROUS SULFATE 325MG TABLET PO SCH ×2 (08:47→16:01)
[2018-11-20] MEDS: METHYLPREDNISOLONE SOD SUCC 40 MG/ML VIAL IV SCH ×3 (08:47→23:41)
[2018-11-20] MEDS: LOSARTAN POTASSIUM 50 MG TABLET PO SCH (08:47)
[2018-11-20] MEDS: DILTIAZEM HCL 180MG CAPSULE CD 24HR PO SCH (08:47)
[2018-11-20] MEDS: LIDOCAINE 5% PATCH TOP SCH (08:54)
[2018-11-20] MEDS: INSULIN LISPRO 100 UNITS/ML SUBCUT SCH ×4 (08:55→20:56)
[2018-11-20] MEDS: BUDESONIDE 0.5MG/2ML NEB HHN SCH ×2 (09:00→21:29)
[2018-11-20] MEDS: ALPRAZOLAM 0.5 MG TABLET PO PRN ×2 (14:05→22:05)
[2018-11-20] MEDS: MONTELUKAST SODIUM 10MG TABLET PO SCH (16:01)
[2018-11-20] MEDS: DIPHENHYDRAMINE 50MG/ML VIAL IV PRN ×2 (16:01→23:41)
[2018-11-20] MEDS: LEVOFLOXACIN 500MG PREMIX 100 ML IV SCH (16:06)
[2018-11-20] MEDS: FAMOTIDINE 20MG TABLET PO SCH (20:55)
[2018-11-20] MEDS: ATORVASTATIN CALCIUM 20MG TABLET PO SCH (20:55)
[2018-11-20] MEDS: ZOLPIDEM TARTRATE 5MG TABLET PO PRN (22:23)
[2018-11-21] VITALS (13 sets, daily range): BP systolic 119–146; BP diastolic 65–94
[2018-11-21] MEDS: MORPHINE SULFATE 2 MG/ML CPJ (NOT FOR IM USE) IV PRN ×4 (00:44→18:37)
[2018-11-21] MEDS: IPRATROPIUM/ALBUTEROL 0.5-3(2.5)MG/3ML NEB HHN SCH ×5 (05:00→21:08)
[2018-11-21] MEDS: BLOOD SUGAR DIAGNOSTIC STRIP TEST SCH ×4 (06:41→20:50)
[2018-11-21] MEDS: INSULIN LISPRO 100 UNITS/ML SUBCUT SCH ×4 (06:49→20:51)
[2018-11-21 07:17] LABS: CHLORIDE 107 mEq/L (98-107)
[2018-11-21 07:21] LABS: HEMATOCRIT 38.7 % (42.0-52.0); HEMOGLOBIN 12.8 g/dL (14.0-18.0); MEAN CORPUSCULAR VOLUME 91.1 fL (80.0-94.0); PLATELET 292 x1000/uL (130-400); RED BLOOD CELL COUNT 4.25 mill/uL (4.7-6.1); RED CELL DISTRIBUTION WIDTH 20.2 % (11.6-14.6)
[2018-11-21] MEDS: DULOXETINE HCL 30MG DR CAPSULE PO SCH (08:55)
[2018-11-21] MEDS: METHYLPREDNISOLONE SOD SUCC 40 MG/ML VIAL IV SCH ×2 (08:55→16:34)
[2018-11-21] MEDS: LOSARTAN POTASSIUM 50 MG TABLET PO SCH (08:55)
[2018-11-21] MEDS: DIPHENHYDRAMINE 50MG/ML VIAL IV PRN ×2 (08:55→16:34)
[2018-11-21] MEDS: APIXABAN 5 MG TABLET PO SCH ×2 (08:55→16:34)
[2018-11-21] MEDS: FERROUS SULFATE 325MG TABLET PO SCH ×2 (08:55→16:34)
[2018-11-21] MEDS: MULTIVITAMINS,THER W-MINERALS TABLET PO SCH (08:56)
[2018-11-21] MEDS: FAMOTIDINE 20MG TABLET PO SCH ×2 (08:56→20:50)
[2018-11-21] MEDS: CLOPIDOGREL 75MG TABLET PO SCH ×2 (08:56→16:34)
[2018-11-21] MEDS: ISOSORBIDE MONONITRATE 60MG TABLET SR 24HR PO SCH (08:56)
[2018-11-21] MEDS: DILTIAZEM HCL 180MG CAPSULE CD 24HR PO SCH (08:56)
[2018-11-21] MEDS: LIDOCAINE 5% PATCH TOP SCH (08:59)
[2018-11-21] MEDS: BUDESONIDE 0.5MG/2ML NEB HHN SCH ×3 (09:30→21:07)
[2018-11-21] MEDS: ALPRAZOLAM 0.5 MG TABLET PO PRN ×2 (10:42→20:50)
[2018-11-21] MEDS: MONTELUKAST SODIUM 10MG TABLET PO SCH (16:34)
[2018-11-21] MEDS: LEVOFLOXACIN 500MG PREMIX 100 ML IV SCH (16:35)
[2018-11-21] MEDS: ATORVASTATIN CALCIUM 20MG TABLET PO SCH (20:50)
[2018-11-21] MEDS: ZOLPIDEM TARTRATE 5MG TABLET PO PRN (22:09)
[2018-11-22] VITALS (12 sets, daily range): BP systolic 121–165; BP diastolic 73–96
[2018-11-22] MEDS: METHYLPREDNISOLONE SOD SUCC 40 MG/ML VIAL IV SCH ×3 (00:20→17:00)
[2018-11-22] MEDS: DIPHENHYDRAMINE 50MG/ML VIAL IV PRN ×3 (00:20→17:00)
[2018-11-22] MEDS: IPRATROPIUM/ALBUTEROL 0.5-3(2.5)MG/3ML NEB HHN SCH ×5 (00:34→17:15)
[2018-11-22] MEDS: MORPHINE SULFATE 2 MG/ML CPJ (NOT FOR IM USE) IV PRN ×3 (01:35→14:24)
[2018-11-22 05:40] LABS: HEMATOCRIT 40.1 % (42.0-52.0); HEMOGLOBIN 13.4 g/dL (14.0-18.0); MEAN CORPUSCULAR HEMOGLOBIN 30.2 pg (28.0-32.0); MEAN CORPUSCULAR VOLUME 90.6 fL (80.0-94.0); PLATELET 300 x1000/uL (130-400); RED BLOOD CELL COUNT 4.42 mill/uL (4.7-6.1); RED CELL DISTRIBUTION WIDTH 19.9 % (11.6-14.6)
[2018-11-22 06:02] LABS: CHLORIDE 106 mEq/L (98-107)
[2018-11-22] MEDS: BLOOD SUGAR DIAGNOSTIC STRIP TEST SCH ×3 (06:50→16:04)
[2018-11-22] MEDS: FERROUS SULFATE 325MG TABLET PO SCH ×2 (07:18→17:01)
[2018-11-22] MEDS: INSULIN LISPRO 100 UNITS/ML SUBCUT SCH ×3 (07:20→17:20)
[2018-11-22] MEDS: DILTIAZEM HCL 180MG CAPSULE CD 24HR PO SCH (09:38)
[2018-11-22] MEDS: ISOSORBIDE MONONITRATE 60MG TABLET SR 24HR PO SCH (09:38)
[2018-11-22] MEDS: APIXABAN 5 MG TABLET PO SCH ×2 (09:38→17:01)
[2018-11-22] MEDS: LOSARTAN POTASSIUM 50 MG TABLET PO SCH (09:38)
[2018-11-22] MEDS: MULTIVITAMINS,THER W-MINERALS TABLET PO SCH (09:38)
[2018-11-22] MEDS: FAMOTIDINE 20MG TABLET PO SCH (09:39)
[2018-11-22] MEDS: CLOPIDOGREL 75MG TABLET PO SCH ×2 (09:39→17:01)
[2018-11-22] MEDS: DULOXETINE HCL 30MG DR CAPSULE PO SCH (09:39)
[2018-11-22] MEDS: LIDOCAINE 5% PATCH TOP SCH (09:43)
[2018-11-22] MEDS: BUDESONIDE 0.5MG/2ML NEB HHN SCH (09:51)
[2018-11-22] MEDS: ALPRAZOLAM 0.5 MG TABLET PO PRN (12:33)
[2018-11-22] MEDS: MONTELUKAST SODIUM 10MG TABLET PO SCH (17:00)
[2018-11-22] MEDS: LEVOFLOXACIN 500MG PREMIX 100 ML IV SCH (17:01)
== END 2018-11-22 22:18 | disposition home or self-care (01) | DRG 189 ==
LOC: ER 22:41 → EDBEDREQ 11-19 00:59 → EDBEDREQTM 11-19 00:59 → ENRESERV 11-19 02:25 → 3WST 11-19 04:34 → 8WST 11-22 18:40
PROVIDERS: ADMIT Internal Medicine; ATTEND Internal Medicine
PROC: 5A09357 Assistance with Respiratory Ventilation, Less than 24 Consecutive Hours, Continuous Positive Airway Pressure (ICD-10-PCS; principal; 2018-11-19)
PROC: 5A09357 Assistance with Respiratory Ventilation, Less than 24 Consecutive Hours, Continuous Positive Airway Pressure (ICD-10-PCS; 2018-11-20)
DX: J96.00 Acute respiratory failure, unspecified whether with hypoxia or hypercapnia (principal); J45.901 Unspecified asthma with (acute) exacerbation; E66.2 Morbid (severe) obesity with alveolar hypoventilation; J84.9 Interstitial pulmonary disease, unspecified; Z68.43 Body mass index [BMI] 50.0-59.9, adult; I11.0 Hypertensive heart disease with heart failure; I50.9 Heart failure, unspecified; E11.9 Type 2 diabetes mellitus without complications; I25.10 Atherosclerotic heart disease of native coronary artery without angina pectoris; G89.29 Other chronic pain; M54.9 Dorsalgia, unspecified; D72.829 Elevated white blood cell count, unspecified; I25.2 Old myocardial infarction; Z95.5 Presence of coronary angioplasty implant and graft; Z99.81 Dependence on supplemental oxygen; Z88.6 Allergy status to analgesic agent; Z88.8 Allergy status to other drugs, medicaments and biological substances
CPT/HCPCS: 36415; 36600; 71045; 71250; 72192; 80048; 82375; 82550; 82553; 82805; 82962; 83605; 83880; 84145; 84484; 85027; 87804; 93005; 94640; 94660; 97116; 97162; 99291; J0456; J0696; J1200; J1815; J1956; J2270; J2920; J2930; J3475; J7060; J7611; J7620; J7626; Q0163

== ENCOUNTER 2018-12-04 20:47 | Inpatient (IN) | payer OTHER ==
[~2018-12-04] VITALS: Ht 167.6 cm; Wt 125.4 kg
[2018-12-04] MEDS ORDERED: MORPHINE SULFATE 4 MG/ML CPJ (NOT FOR IM USE) IV STA (21:17)
[2018-12-04] MEDS ORDERED: ONDANSETRON HCL 4MG/2ML INJ IV STA (21:17)
[2018-12-04] MEDS ORDERED: METHYLPREDNISOLONE SOD SUCC 125 MG/2 ML VIAL IV STA (21:17)
[2018-12-04] MEDS ORDERED: MAGNESIUM 2 G PREMIX 50 ML IV ONE (21:30)
[2018-12-04] MEDS ORDERED: LEVOFLOXACIN 750MG PREMIX 150 ML IV ONE (21:30)
[2018-12-04] MEDS ORDERED: IPRATROPIUM/ALBUTEROL 0.5-3(2.5)MG/3ML NEB HHN ONE (21:30)
[2018-12-04 21:56] LABS: BASOPHILS % 0.9 % (0.0-2.0); EOSINOPHILS % 1.8 % (0.0-5.0); HEMATOCRIT. 44.1 % (42.0-52.0); HEMOGLOBIN. 14.5 g/dL (14.0-18.0); LYMPHOCYTES % 18.7 % (20.0-50.0); MEAN CORPUSCULAR HEMOGLOBIN 30.3 pg (28.0-32.0); MEAN PLATELET VOLUME 8.7 fl (7.4-10.4); MONOCYTES % 7.2 % (2.0-8.0); NEUTROPHILS % 71.4 % (40.0-76.0); PLATELET 256 x1000/uL (130-400); RED BLOOD CELL COUNT 4.79 mill/uL (4.7-6.1); RED CELL DISTRIBUTION WIDTH 18.7 % (11.6-14.6)
[2018-12-04 22:00] LABS: CHLORIDE 109 mEq/L (98-107)
[2018-12-04 22:02] LABS: PARTIAL THROMBOPLASTIN TIME 31.2 sec (23.4-31.0)
[2018-12-04 22:04] LABS: ETHANOL BLOOD < 10 mg/dL
[2018-12-04 22:51] LABS: CLARITY URINE CLEAR (CLEAR); COLOR URINE YELLOW (YELLOW); KETONES URINE TRACE (NEGATIVE); LEUKOCYTE ESTERASE URINE TRACE (NEGATIVE); NITRITE URINE NEGATIVE (NEGATIVE); OCCULT BLOOD URINE TRACE (NEGATIVE); PH URINE 6.5 (4.5-8.0); PROTEIN URINE 1+ (NEGATIVE)
[2018-12-04 23:03] LABS: *AMPHETAMINES SCREEN URINE NEGATIVE (NEGATIVE); *BARBITURATES SCREEN URINE NEGATIVE (NEGATIVE); *BENZODIAZEPINES SCREEN URINE NEGATIVE (NEGATIVE); *COCAINE SCREEN URINE NEGATIVE (NEGATIVE); METHADONE URINE SCREEN NEGATIVE (NEGATIVE)
[2018-12-04 23:04] LABS: CANNABINOID URINE SCREEN NEGATIVE (NEGATIVE); OPIATES URINE SCREEN NEGATIVE (NEGATIVE); PHENCYCLIDINE URINE SCREEN NEGATIVE (NEGATIVE)
[2018-12-04] MEDS ORDERED: DIPHENHYDRAMINE 50MG/ML VIAL IV ONE (23:15)
[2018-12-05] VITALS (10 sets, daily range): BP systolic 114–158; BP diastolic 57–95
[2018-12-05] MEDS ORDERED: MORPHINE SULFATE 4 MG/ML CPJ (NOT FOR IM USE) IV ONE
[2018-12-05] MEDS ORDERED: ONDANSETRON HCL 4MG/2ML INJ IV ONE
[2018-12-05 00:42] LABS: BG CARBOXYHEMOGLOBIN 0.4 % (0.5-1.5); BG DEOXYHEMOGLOBIN 8.8 % (0.0-5.0); BG FRACTION INSPIRED OXYGEN 21; BG HCO3 ACT 21.9 mmol/L (22.0-26.0); BG METHEMOGLOBIN 0.2 % (0.0-1.5); BG OXYGEN SATURATION 91.1 % (92.0-98.5); BG OXYHEMOGLOBIN 90.6 % (94.0-97.0); BG PCO2 39.2 mmHg (35.0-45.0); BG PH 7.366 (7.350-7.450); BG PO2 61.1 mmHg (75.0-100.0); BG SAMPLE SITE RIGHT RADIAL; BG TOTAL HEMOGLOBIN 14.2 g/dL (12.0-18.0); BG VENT MODE ROOM AIR
[2018-12-05] MEDS ORDERED: FENTANYL CITRATE/PF 50MCG/ML 2ML VIAL IV ONE (02:30)
[2018-12-05] MEDS ORDERED: IPRATROPIUM/ALBUTEROL 0.5-3(2.5)MG/3ML NEB HHN PRN (04:00)
[2018-12-05] MEDS: METHYLPREDNISOLONE SOD SUCC 40 MG/ML VIAL IV SCH ×3 (05:51→20:58)
[2018-12-05] MEDS ORDERED: PIPERACILLIN/TAZOBACTAM 3.375GM/50ML PREMIX IV SCH (06:00)
[2018-12-05] MEDS: PIPERACILLIN/TAZOBACTAM 3.375 G in DEXT 5% WATER 100 ML IV SCH ×3 (06:10→17:33)
[2018-12-05] MEDS ORDERED: ENOXAPARIN 30MG/0.3ML SYR SUBCUT SCH (09:00)
[2018-12-05] MEDS ORDERED: ENOXAPARIN 40MG/0.4ML SYR SUBCUT SCH (09:00)
[2018-12-05] MEDS: GUAIFENESIN 200MG/10ML SUGAR FREE UDC PO PRN (11:40)
[2018-12-05] MEDS: IPRATROPIUM/ALBUTEROL 0.5-3(2.5)MG/3ML NEB HHN SCH ×3 (12:58→20:24)
[2018-12-05] MEDS ORDERED: CLONIDINE 0.1MG TABLET PO PRN (18:15)
[2018-12-05] MEDS ORDERED: GUAIFENESIN 200MG/10ML SUGAR FREE UDC PO PRN (18:15)
[2018-12-05] MEDS ORDERED: ACETAMINOPHEN 325MG TABLET PO PRN (18:15)
[2018-12-05] MEDS: DIPHENHYDRAMINE 50MG/ML VIAL IV PRN (18:48)
[2018-12-05 20:24] LABS: HEMATOCRIT 40.8 % (42.0-52.0); HEMOGLOBIN 13.2 g/dL (14.0-18.0)
[2018-12-05] MEDS: DIPHENHYDRAMINE 50MG/ML VIAL IV SCH (20:58)
[2018-12-05] MEDS: ATORVASTATIN CALCIUM 20MG TABLET PO SCH (20:58)
[2018-12-05] MEDS: NITROGLYCERIN OINT 1GM/INCH UDPKT TD SCH (20:59)
[2018-12-05] MEDS: DILTIAZEM HCL 60MG TABLET PO SCH (21:00)
[2018-12-05] MEDS: ALPRAZOLAM 0.5 MG TABLET PO PRN (21:07)
[2018-12-05] MEDS: SODIUM CHLORIDE 0.9% INJ 3ML FLUSH IVF SCH (21:08)
[2018-12-06] VITALS (12 sets, daily range): BP systolic 107–133; BP diastolic 58–85
[2018-12-06] MEDS: PIPERACILLIN/TAZOBACTAM 3.375 G in DEXT 5% WATER 100 ML IV SCH ×5 (00:47→23:09)
[2018-12-06] MEDS: IPRATROPIUM/ALBUTEROL 0.5-3(2.5)MG/3ML NEB HHN SCH ×5 (03:50→20:26)
[2018-12-06] MEDS: DIPHENHYDRAMINE 50MG/ML VIAL IV PRN ×4 (04:01→18:45)
[2018-12-06] MEDS: METHYLPREDNISOLONE SOD SUCC 40 MG/ML VIAL IV SCH ×3 (05:49→20:13)
[2018-12-06] MEDS: NITROGLYCERIN OINT 1GM/INCH UDPKT TD SCH ×3 (05:50→22:22)
[2018-12-06] MEDS: DILTIAZEM HCL 60MG TABLET PO SCH ×3 (05:50→22:21)
[2018-12-06] MEDS: SODIUM CHLORIDE 0.9% INJ 3ML FLUSH IVF SCH ×3 (05:50→22:21)
[2018-12-06] MEDS: ALPRAZOLAM 0.5 MG TABLET PO PRN ×3 (05:51→18:46)
[2018-12-06] MEDS: MAGNESIUM/ALUMINUM HYDROXIDE/SIMETHICONE 30ML UDC PO PRN ×2 (08:56→14:13)
[2018-12-06] MEDS: GUAIFENESIN 200MG/10ML SUGAR FREE UDC PO PRN ×3 (08:56→18:45)
[2018-12-06] MEDS: ONDANSETRON HCL 4MG/2ML INJ IV PRN ×3 (08:56→20:21)
[2018-12-06] MEDS: APIXABAN 5 MG TABLET PO SCH ×2 (08:57→16:56)
[2018-12-06] MEDS: LOSARTAN POTASSIUM 50 MG TABLET PO SCH (08:57)
[2018-12-06] MEDS: CLOPIDOGREL 75MG TABLET PO SCH ×2 (09:04→16:56)
[2018-12-06] MEDS: MONTELUKAST SODIUM 10MG TABLET PO SCH (16:56)
[2018-12-06] MEDS: ATORVASTATIN CALCIUM 20MG TABLET PO SCH (20:12)
[2018-12-06] MEDS: DIPHENHYDRAMINE 50MG/ML VIAL IV SCH (20:13)
[2018-12-07] VITALS (13 sets, daily range): BP systolic 102–147; BP diastolic 64–85
[2018-12-07] MEDS: IPRATROPIUM/ALBUTEROL 0.5-3(2.5)MG/3ML NEB HHN SCH ×6 (00:17→20:43)
[2018-12-07] MEDS: ALPRAZOLAM 0.5 MG TABLET PO PRN ×3 (04:30→22:25)
[2018-12-07] MEDS: DIPHENHYDRAMINE 50MG/ML VIAL IV PRN ×2 (05:07→10:12)
[2018-12-07] MEDS: NITROGLYCERIN OINT 1GM/INCH UDPKT TD SCH ×3 (05:07→20:52)
[2018-12-07] MEDS: METHYLPREDNISOLONE SOD SUCC 40 MG/ML VIAL IV SCH ×3 (05:07→20:42)
[2018-12-07] MEDS: DILTIAZEM HCL 60MG TABLET PO SCH ×3 (05:07→20:42)
[2018-12-07] MEDS: SODIUM CHLORIDE 0.9% INJ 3ML FLUSH IVF SCH ×3 (05:08→22:21)
[2018-12-07] MEDS: PIPERACILLIN/TAZOBACTAM 3.375 G in DEXT 5% WATER 100 ML IV SCH ×4 (05:08→22:25)
[2018-12-07] MEDS ORDERED: HYDROCODONE/ACETAMINOPHEN 5/325MG TABLET PO PRN (06:45)
[2018-12-07] MEDS: LOSARTAN POTASSIUM 50 MG TABLET PO SCH ×2 (08:15→08:18)
[2018-12-07] MEDS: APIXABAN 5 MG TABLET PO SCH ×2 (08:15→16:16)
[2018-12-07] MEDS: CLOPIDOGREL 75MG TABLET PO SCH ×2 (08:15→16:16)
[2018-12-07 09:21] LABS: HEMATOCRIT. 37.9 % (42.0-52.0); HEMOGLOBIN. 12.2 g/dL (14.0-18.0); MEAN CORPUSCULAR VOLUME 93.3 fL (80.0-94.0); MEAN PLATELET VOLUME 8.9 fl (7.4-10.4); PLATELET 232 x1000/uL (130-400); RED BLOOD CELL COUNT 4.07 mill/uL (4.7-6.1); RED CELL DISTRIBUTION WIDTH 19.2 % (11.6-14.6)
[2018-12-07 09:44] LABS: CHLORIDE 105 mEq/L (98-107)
[2018-12-07] MEDS ORDERED: HYDROCODONE/APAP 7.5/325MG 1 TAB TABLET PO PRN (12:15)
[2018-12-07] MEDS ORDERED: DEXTROSE 50% WATER 50ML SYRINGE IV PRN (12:30)
[2018-12-07] MEDS: BLOOD SUGAR DIAGNOSTIC STRIP TEST SCH ×3 (12:51→20:48)
[2018-12-07] MEDS: INSULIN LISPRO 100 UNITS/ML SUBCUT SCH ×3 (13:37→20:52)
[2018-12-07 16:02] LABS: PLATELET ESTIMATE NORMAL
[2018-12-07] MEDS: ONDANSETRON HCL 4MG/2ML INJ IV PRN (16:16)
[2018-12-07] MEDS: MONTELUKAST SODIUM 10MG TABLET PO SCH (16:16)
[2018-12-07] MEDS: MORPHINE SULFATE 2 MG/ML CPJ (NOT FOR IM USE) IV PRN ×2 (16:17→22:26)
[2018-12-07] MEDS: DIPHENHYDRAMINE 50MG/ML VIAL IV SCH (20:41)
[2018-12-07] MEDS: ATORVASTATIN CALCIUM 20MG TABLET PO SCH (20:41)
[2018-12-08] VITALS (12 sets, daily range): BP systolic 115–152; BP diastolic 68–105
[2018-12-08] MEDS: IPRATROPIUM/ALBUTEROL 0.5-3(2.5)MG/3ML NEB HHN SCH ×5 (00:25→23:48)
[2018-12-08] MEDS: METHYLPREDNISOLONE SOD SUCC 40 MG/ML VIAL IV SCH ×3 (05:20→21:36)
[2018-12-08] MEDS: DIPHENHYDRAMINE 50MG/ML VIAL IV PRN ×2 (05:20→12:13)
[2018-12-08] MEDS: DILTIAZEM HCL 60MG TABLET PO SCH ×3 (05:21→21:35)
[2018-12-08] MEDS: NITROGLYCERIN OINT 1GM/INCH UDPKT TD SCH ×3 (05:22→21:36)
[2018-12-08] MEDS: PIPERACILLIN/TAZOBACTAM 3.375 G in DEXT 5% WATER 100 ML IV SCH ×4 (05:22→23:44)
[2018-12-08] MEDS: SODIUM CHLORIDE 0.9% INJ 3ML FLUSH IVF SCH ×3 (05:22→21:36)
[2018-12-08] MEDS: MORPHINE SULFATE 2 MG/ML CPJ (NOT FOR IM USE) IV PRN ×4 (05:24→21:30)
[2018-12-08 06:09] LABS: CHLORIDE 104 mEq/L (98-107)
[2018-12-08 06:17] LABS: HEMATOCRIT 37.5 % (42.0-52.0); HEMOGLOBIN 12.4 g/dL (14.0-18.0); MEAN CORPUSCULAR HEMOGLOBIN 30.5 pg (28.0-32.0); MEAN CORPUSCULAR VOLUME 92.5 fL (80.0-94.0); PLATELET 234 x1000/uL (130-400); RED BLOOD CELL COUNT 4.05 mill/uL (4.7-6.1); RED CELL DISTRIBUTION WIDTH 18.7 % (11.6-14.6)
[2018-12-08] MEDS: BLOOD SUGAR DIAGNOSTIC STRIP TEST SCH ×4 (07:39→21:25)
[2018-12-08] MEDS: INSULIN LISPRO 100 UNITS/ML SUBCUT SCH ×4 (08:19→21:37)
[2018-12-08] MEDS: ALPRAZOLAM 0.5 MG TABLET PO PRN (08:19)
[2018-12-08] MEDS: CLOPIDOGREL 75MG TABLET PO SCH ×2 (08:19→18:28)
[2018-12-08] MEDS: APIXABAN 5 MG TABLET PO SCH ×2 (08:19→18:29)
[2018-12-08] MEDS: LOSARTAN POTASSIUM 50 MG TABLET PO SCH (08:19)
[2018-12-08] MEDS ORDERED: INSULIN LISPRO 100 UNITS/ML SUBCUT NR (11:15)
[2018-12-08 13:59] LABS: BG BASE EXCESS -1.3 mmol/L (-2.0-2.0); BG BILEVEL POS AIRWAY PRESSURE 15/5; BG CARBOXYHEMOGLOBIN 0.4 % (0.5-1.5); BG DEOXYHEMOGLOBIN 2.9 % (0.0-5.0); BG FRACTION INSPIRED OXYGEN 35; BG HCO3 ACT 23.4 mmol/L (22.0-26.0); BG METHEMOGLOBIN 0.3 % (0.0-1.5); BG OXYGEN SATURATION 97.1 % (92.0-98.5); BG OXYHEMOGLOBIN 96.4 % (94.0-97.0); BG PCO2 39.1 mmHg (35.0-45.0); BG PH 7.394 (7.350-7.450); BG PO2 92.9 mmHg (75.0-100.0); BG SAMPLE SITE LEFT RADIAL; BG TOTAL HEMOGLOBIN 13.5 g/dL (12.0-18.0); BG VENT MODE MASK - BIPAP; BG VENT RATE 16 set
[2018-12-08] MEDS: MONTELUKAST SODIUM 10MG TABLET PO SCH (18:29)
[2018-12-08] MEDS: ATORVASTATIN CALCIUM 20MG TABLET PO SCH (21:35)
[2018-12-08] MEDS: DIPHENHYDRAMINE 50MG/ML VIAL IV SCH (21:36)
[2018-12-09] VITALS (13 sets, daily range): BP systolic 128–163; BP diastolic 67–98
[2018-12-09] MEDS: IPRATROPIUM/ALBUTEROL 0.5-3(2.5)MG/3ML NEB HHN SCH ×5 (04:07→20:43)
[2018-12-09] MEDS: MORPHINE SULFATE 2 MG/ML CPJ (NOT FOR IM USE) IV PRN ×5 (04:28→23:03)
[2018-12-09] MEDS: METHYLPREDNISOLONE SOD SUCC 40 MG/ML VIAL IV SCH ×3 (05:44→21:11)
[2018-12-09] MEDS: SODIUM CHLORIDE 0.9% INJ 3ML FLUSH IVF SCH ×3 (05:44→21:11)
[2018-12-09] MEDS: DILTIAZEM HCL 60MG TABLET PO SCH ×3 (05:45→21:11)
[2018-12-09] MEDS: PIPERACILLIN/TAZOBACTAM 3.375 G in DEXT 5% WATER 100 ML IV SCH ×4 (05:45→23:02)
[2018-12-09] MEDS: DIPHENHYDRAMINE 50MG/ML VIAL IV PRN ×2 (05:45→11:45)
[2018-12-09 06:27] LABS: HEMATOCRIT. 38.5 % (42.0-52.0); HEMOGLOBIN. 12.8 g/dL (14.0-18.0); MEAN CORPUSCULAR HEMOGLOBIN 30.8 pg (28.0-32.0); MEAN CORPUSCULAR VOLUME 92.3 fL (80.0-94.0); MEAN PLATELET VOLUME 9.4 fl (7.4-10.4); PLATELET 238 x1000/uL (130-400); RED BLOOD CELL COUNT 4.17 mill/uL (4.7-6.1); RED CELL DISTRIBUTION WIDTH 18.3 % (11.6-14.6)
[2018-12-09 06:36] LABS: CHLORIDE 104 mEq/L (98-107)
[2018-12-09] MEDS: NITROGLYCERIN OINT 1GM/INCH UDPKT TD SCH ×3 (06:36→21:13)
[2018-12-09] MEDS: BLOOD SUGAR DIAGNOSTIC STRIP TEST SCH ×4 (07:30→21:08)
[2018-12-09] MEDS: ALPRAZOLAM 0.5 MG TABLET PO PRN (07:55)
[2018-12-09] MEDS: CLOPIDOGREL 75MG TABLET PO SCH ×2 (07:55→18:03)
[2018-12-09] MEDS: APIXABAN 5 MG TABLET PO SCH ×2 (07:55→18:03)
[2018-12-09] MEDS: LOSARTAN POTASSIUM 50 MG TABLET PO SCH (07:55)
[2018-12-09] MEDS: INSULIN LISPRO 100 UNITS/ML SUBCUT SCH ×4 (07:57→21:09)
[2018-12-09] MEDS: INSULIN GLARGINE UD 100 UNITS/ML SYR SUBCUT SCH (09:51)
[2018-12-09] MEDS: ONDANSETRON HCL 4MG/2ML INJ IV PRN (11:54)
[2018-12-09] MEDS: GUAIFENESIN 200MG/10ML SUGAR FREE UDC PO PRN (13:45)
[2018-12-09 17:15] LABS: PLATELET ESTIMATE NORMAL
[2018-12-09] MEDS: MONTELUKAST SODIUM 10MG TABLET PO SCH (18:03)
[2018-12-09] MEDS: DIPHENHYDRAMINE 50MG/ML VIAL IV SCH (21:07)
[2018-12-09] MEDS: ATORVASTATIN CALCIUM 20MG TABLET PO SCH (21:08)
[2018-12-10] VITALS (9 sets, daily range): BP systolic 115–167; BP diastolic 74–102
[2018-12-10] MEDS: IPRATROPIUM/ALBUTEROL 0.5-3(2.5)MG/3ML NEB HHN SCH ×6 (04:00→20:06)
[2018-12-10] MEDS: METHYLPREDNISOLONE SOD SUCC 40 MG/ML VIAL IV SCH ×3 (05:14→22:09)
[2018-12-10] MEDS: DILTIAZEM HCL 60MG TABLET PO SCH ×3 (05:14→22:09)
[2018-12-10] MEDS: PIPERACILLIN/TAZOBACTAM 3.375 G in DEXT 5% WATER 100 ML IV SCH ×3 (05:14→17:37)
[2018-12-10] MEDS: NITROGLYCERIN OINT 1GM/INCH UDPKT TD SCH ×3 (05:15→22:29)
[2018-12-10] MEDS: MORPHINE SULFATE 2 MG/ML CPJ (NOT FOR IM USE) IV PRN ×5 (05:25→22:11)
[2018-12-10] MEDS: DIPHENHYDRAMINE 50MG/ML VIAL IV PRN ×4 (05:26→17:42)
[2018-12-10] MEDS: SODIUM CHLORIDE 0.9% INJ 3ML FLUSH IVF SCH ×3 (05:26→22:10)
[2018-12-10] MEDS: BLOOD SUGAR DIAGNOSTIC STRIP TEST SCH ×4 (07:30→21:00)
[2018-12-10 08:00] LABS: HEMATOCRIT. 38.9 % (42.0-52.0); HEMOGLOBIN. 12.9 g/dL (14.0-18.0); MEAN CORPUSCULAR HEMOGLOBIN 30.8 pg (28.0-32.0); MEAN PLATELET VOLUME 8.8 fl (7.4-10.4); PLATELET 232 x1000/uL (130-400); RED BLOOD CELL COUNT 4.18 mill/uL (4.7-6.1); RED CELL DISTRIBUTION WIDTH 18.5 % (11.6-14.6)
[2018-12-10 08:12] LABS: CHLORIDE 104 mEq/L (98-107)
[2018-12-10] MEDS: APIXABAN 5 MG TABLET PO SCH ×2 (08:18→17:10)
[2018-12-10] MEDS: LOSARTAN POTASSIUM 50 MG TABLET PO SCH (08:19)
[2018-12-10] MEDS: CLOPIDOGREL 75MG TABLET PO SCH ×2 (08:19→17:10)
[2018-12-10] MEDS: INSULIN LISPRO 100 UNITS/ML SUBCUT SCH ×4 (08:19→22:26)
[2018-12-10] MEDS: ALPRAZOLAM 0.5 MG TABLET PO PRN (09:52)
[2018-12-10] MEDS: INSULIN GLARGINE UD 100 UNITS/ML SYR SUBCUT SCH (09:55)
[2018-12-10] MEDS: ONDANSETRON HCL 4MG/2ML INJ IV PRN ×2 (11:23→22:28)
[2018-12-10 13:10] LABS: PLATELET ESTIMATE NORMAL
[2018-12-10] MEDS: MONTELUKAST SODIUM 10MG TABLET PO SCH (17:10)
[2018-12-10] MEDS: DIPHENHYDRAMINE 50MG/ML VIAL IV SCH (22:09)
[2018-12-10] MEDS: ATORVASTATIN CALCIUM 20MG TABLET PO SCH (22:09)
[2018-12-11] VITALS: BP 150/97
[2018-12-11] MEDS: PIPERACILLIN/TAZOBACTAM 3.375 G in DEXT 5% WATER 100 ML IV SCH ×3 (01:16→12:29)
[2018-12-11] MEDS: ONDANSETRON HCL 4MG/2ML INJ IV PRN ×4 (02:46→16:32)
[2018-12-11] MEDS: DIPHENHYDRAMINE 50MG/ML VIAL IV SCH ×2 (02:46→08:19)
[2018-12-11] MEDS: MORPHINE SULFATE 2 MG/ML CPJ (NOT FOR IM USE) IV PRN ×4 (02:47→16:33)
[2018-12-11 04:00] VITALS: BP 143/73
[2018-12-11] MEDS: IPRATROPIUM/ALBUTEROL 0.5-3(2.5)MG/3ML NEB HHN SCH ×5 (04:00→16:00)
[2018-12-11] MEDS: METHYLPREDNISOLONE SOD SUCC 40 MG/ML VIAL IV SCH ×2 (05:56→14:30)
[2018-12-11] MEDS: NITROGLYCERIN OINT 1GM/INCH UDPKT TD SCH ×3 (05:57→14:34)
[2018-12-11] MEDS: BLOOD SUGAR DIAGNOSTIC STRIP TEST SCH ×2 (05:57→12:18)
[2018-12-11] MEDS: SODIUM CHLORIDE 0.9% INJ 3ML FLUSH IVF SCH ×2 (05:57→14:31)
[2018-12-11] MEDS: DILTIAZEM HCL 60MG TABLET PO SCH ×2 (05:57→14:31)
[2018-12-11] MEDS: INSULIN LISPRO 100 UNITS/ML SUBCUT SCH ×2 (07:01→13:03)
[2018-12-11 08:00] VITALS: BP 127/78
[2018-12-11] MEDS: LOSARTAN POTASSIUM 50 MG TABLET PO SCH (09:01)
[2018-12-11] MEDS: CLOPIDOGREL 75MG TABLET PO SCH (09:01)
[2018-12-11] MEDS: APIXABAN 5 MG TABLET PO SCH (09:01)
[2018-12-11] MEDS: INSULIN GLARGINE UD 100 UNITS/ML SYR SUBCUT SCH (10:29)
[2018-12-11] MEDS: DIPHENHYDRAMINE 50MG/ML VIAL IV PRN ×2 (11:41→16:32)
[2018-12-11 12:00] VITALS: BP 133/79
[2018-12-11 16:00] VITALS: BP 140/86
[2018-12-11 16:59] VITALS: BP 140/86
== END 2018-12-11 18:45 | disposition home or self-care (01) | DRG 189 ==
LOC: ER 20:47 → EDBEDREQ 12-05 00:34 → 5EST 12-05 01:02 → EDBEDREQTM 12-05 01:06 → EDBEDREQSVC 12-05 01:06 → EDBEDREQDT 12-05 01:06 → EDBEDREQ 12-05 01:06 → ENRESERV 12-05 01:47 → 8WST 12-10 10:38
PROVIDERS: ADMIT Internal Medicine; ATTEND Internal Medicine
PROC: 5A09357 Assistance with Respiratory Ventilation, Less than 24 Consecutive Hours, Continuous Positive Airway Pressure (ICD-10-PCS; principal; 2018-12-05)
PROC: 5A09357 Assistance with Respiratory Ventilation, Less than 24 Consecutive Hours, Continuous Positive Airway Pressure (ICD-10-PCS; 2018-12-06)
PROC: 5A09357 Assistance with Respiratory Ventilation, Less than 24 Consecutive Hours, Continuous Positive Airway Pressure (ICD-10-PCS; 2018-12-07)
PROC: 5A09357 Assistance with Respiratory Ventilation, Less than 24 Consecutive Hours, Continuous Positive Airway Pressure (ICD-10-PCS; 2018-12-08)
PROC: 5A09357 Assistance with Respiratory Ventilation, Less than 24 Consecutive Hours, Continuous Positive Airway Pressure (ICD-10-PCS; 2018-12-09)
PROC: 5A09357 Assistance with Respiratory Ventilation, Less than 24 Consecutive Hours, Continuous Positive Airway Pressure (ICD-10-PCS; 2018-12-11)
DX: J96.20 Acute and chronic respiratory failure, unspecified whether with hypoxia or hypercapnia (principal); J44.1 Chronic obstructive pulmonary disease with (acute) exacerbation; I47.1 Supraventricular tachycardia; E66.2 Morbid (severe) obesity with alveolar hypoventilation; J45.901 Unspecified asthma with (acute) exacerbation; Z68.41 Body mass index [BMI] 40.0-44.9, adult; E11.9 Type 2 diabetes mellitus without complications; F41.9 Anxiety disorder, unspecified; I10 Essential (primary) hypertension; S62.92XA Unspecified fracture of left hand, initial encounter for closed fracture; X58.XXXA Exposure to other specified factors, initial encounter; T38.0X5A Adverse effect of glucocorticoids and synthetic analogues, initial encounter; M19.90 Unspecified osteoarthritis, unspecified site; G89.29 Other chronic pain; I25.10 Atherosclerotic heart disease of native coronary artery without angina pectoris; I25.2 Old myocardial infarction; Z95.5 Presence of coronary angioplasty implant and graft; Z99.81 Dependence on supplemental oxygen; Z79.01 Long term (current) use of anticoagulants; Z79.02 Long term (current) use of antithrombotics/antiplatelets; Z79.899 Other long term (current) drug therapy; Z90.49 Acquired absence of other specified parts of digestive tract; Z88.9 Allergy status to unspecified drugs, medicaments and biological substances; Z88.5 Allergy status to narcotic agent; Y93.89 Activity, other specified; Y92.89 Other specified places as the place of occurrence of the external cause; Y99.8 Other external cause status
CPT/HCPCS: 36415; 36600; 71045; 73110; 80048; 80305; 80320; 81003; 82375; 82805; 82962; 83605; 83880; 84484; 84550; 85014; 85018; 85027; 85651; 86038; 86140; 86430; 87070; 87106; 87804; 93005; 94640; 94660; 96374; 99291; J1200; J1650; J1815; J1956; J2270; J2405; J2543; J2920; J2930; J3010; J3475; J7040; J7060; J7620; G0480

== ENCOUNTER 2018-12-31 10:33 | Inpatient (IN) | payer OTHER ==
[2018-12-31] VITALS (7 sets, daily range): BP systolic 119–141; BP diastolic 63–89
[~2018-12-31] VITALS: Ht 167.6 cm; Wt 117.9 kg
[2018-12-31] MEDS ORDERED: ALBUTEROL (0.083%) 2.5MG/3ML NEB HHN STA (10:45)
[2018-12-31] MEDS ORDERED: IPRATROPIUM BROMIDE (0.02%) 0.5MG/2.5ML NEB HHN STA (10:45)
[2018-12-31] MEDS ORDERED: DILTIAZEM HCL 5MG/ML 5ML VIAL IV ONE (10:45)
[2018-12-31 11:14] LABS: CHLORIDE 108 mEq/L (98-107)
[2018-12-31] MEDS ORDERED: FENTANYL CITRATE/PF 50MCG/ML 2ML VIAL IV ONE (11:15)
[2018-12-31] MEDS ORDERED: ONDANSETRON HCL 4MG/2ML INJ IV ONE ×2 (11:15→13:30)
[2018-12-31 11:16] LABS: HEMATOCRIT. 44.9 % (42.0-52.0); HEMOGLOBIN. 14.7 g/dL (14.0-18.0); MEAN CORPUSCULAR HEMOGLOBIN 31.8 pg (28.0-32.0); MEAN CORPUSCULAR VOLUME 96.8 fL (80.0-94.0); MEAN PLATELET VOLUME 8.7 fl (7.4-10.4); PLATELET 242 x1000/uL (130-400); RED BLOOD CELL COUNT 4.64 mill/uL (4.7-6.1); RED CELL DISTRIBUTION WIDTH 18.6 % (11.6-14.6)
[2018-12-31 11:22] LABS: T4 FREE 0.94 ng/dL (0.76-1.46)
[2018-12-31 11:43] LABS: INR 0.9; PROTHROMBIN TIME 9.7 sec (9.6-11.0)
[2018-12-31 11:48] LABS: PLATELET ESTIMATE NORMAL
[2018-12-31] MEDS: LOSARTAN POTASSIUM 25 MG TABLET PO SCH ×2 (13:00→22:22)
[2018-12-31] MEDS: DILTIAZEM HCL 120MG CAPSULE CD 24HR PO SCH ×2 (13:30→20:40)
[2018-12-31] MEDS: SODIUM POLYSTYRENE SULFONATE 15 G/60 ML BOT PO SCH ×2 (13:31→22:25)
[2018-12-31] MEDS ORDERED: NITROGLYCERIN OINT 1GM/INCH UDPKT TD NR (15:15)
[2018-12-31] MEDS ORDERED: ACETAMINOPHEN 650MG SUPP PR PRN (16:00)
[2018-12-31] MEDS ORDERED: MAGNESIUM/ALUMINUM HYDROXIDE/SIMETHICONE 30ML UDC PO PRN (16:00)
[2018-12-31] MEDS ORDERED: DOCUSATE SODIUM 100MG CAPSULE PO PRN (16:00)
[2018-12-31] MEDS ORDERED: ACETAMINOPHEN 325MG TABLET PO PRN (16:00)
[2018-12-31] MEDS ORDERED: NA PHOS,M-B/NA PHOS,DI-BA ENEMA 118ML PR PRN (16:00)
[2018-12-31] MEDS ORDERED: CLONIDINE 0.1MG TABLET PO PRN (16:00)
[2018-12-31] MEDS ORDERED: SODIUM CHLORIDE 0.45% 1,000 ML IV SCH (16:00)
[2018-12-31] MEDS: CLOPIDOGREL 75MG TABLET PO SCH (17:32)
[2018-12-31 18:23] LABS: BG BASE EXCESS 0.8 mmol/L (-2.0-2.0); BG CARBOXYHEMOGLOBIN 0.3 % (0.5-1.5); BG DEOXYHEMOGLOBIN 5.1 % (0.0-5.0); BG FRACTION INSPIRED OXYGEN 21; BG HCO3 ACT 25.3 mmol/L (22.0-26.0); BG METHEMOGLOBIN 0.1 % (0.0-1.5); BG OXYGEN SATURATION 94.9 % (92.0-98.5); BG OXYHEMOGLOBIN 94.5 % (94.0-97.0); BG PH 7.419 (7.350-7.450); BG PO2 72.5 mmHg (75.0-100.0); BG SAMPLE SITE LEFT RADIAL; BG TOTAL HEMOGLOBIN 13.7 g/dL (12.0-18.0); BG VENT MODE ROOM AIR
[2018-12-31] MEDS: ENOXAPARIN 40MG/0.4ML SYR SUBCUT SCH (18:35)
[2018-12-31] MEDS: MORPHINE SULFATE 2 MG/ML CPJ (NOT FOR IM USE) IV PRN (18:42)
[2018-12-31] MEDS ORDERED: LEVOFLOXACIN 500MG PREMIX 100 ML IV SCH (20:00)
[2018-12-31] MEDS: ATORVASTATIN CALCIUM 20MG TABLET PO SCH (20:40)
[2018-12-31] MEDS: FAMOTIDINE 20MG TABLET PO SCH (20:40)
[2018-12-31] MEDS: IPRATROPIUM/ALBUTEROL 0.5-3(2.5)MG/3ML NEB NEB PRN (20:59)
[2018-12-31] MEDS: BUDESONIDE 0.5MG/2ML NEB HHN SCH (20:59)
[2018-12-31] MEDS: METHYLPREDNISOLONE SOD SUCC 125 MG/2 ML VIAL IV SCH (22:25)
[2018-12-31] MEDS: DIPHENHYDRAMINE 50MG/ML VIAL IV PRN (22:37)
[2019-01-01] VITALS (19 sets, daily range): BP systolic 109–156; BP diastolic 49–92
[2019-01-01] MEDS ORDERED: DEXT 5%/0.45% NACL 1000ML 1,000 ML IV SCH
[2019-01-01] MEDS: NITROGLYCERIN OINT 1GM/INCH UDPKT TD SCH ×4 (00:30→18:03)
[2019-01-01] MEDS: MORPHINE SULFATE 2 MG/ML CPJ (NOT FOR IM USE) IV PRN ×5 (00:41→19:34)
[2019-01-01] MEDS: ONDANSETRON HCL 4MG/2ML INJ IV PRN ×4 (00:45→19:32)
[2019-01-01] MEDS: DIPHENHYDRAMINE 50MG/ML VIAL IV PRN ×4 (04:37→22:28)
[2019-01-01] MEDS: METHYLPREDNISOLONE SOD SUCC 125 MG/2 ML VIAL IV SCH ×3 (06:27→21:15)
[2019-01-01 06:44] LABS: BASOPHILS % 0.3 % (0.0-2.0); HEMATOCRIT. 38.9 % (42.0-52.0); HEMOGLOBIN. 13.1 g/dL (14.0-18.0); LYMPHOCYTES % 17.7 % (20.0-50.0); MEAN CORPUSCULAR HEMOGLOBIN 31.9 pg (28.0-32.0); MEAN CORPUSCULAR VOLUME 94.7 fL (80.0-94.0); MEAN PLATELET VOLUME 8.8 fl (7.4-10.4); PLATELET 238 x1000/uL (130-400); RED BLOOD CELL COUNT 4.11 mill/uL (4.7-6.1); RED CELL DISTRIBUTION WIDTH 18.2 % (11.6-14.6)
[2019-01-01] MEDS: DILTIAZEM HCL 120MG CAPSULE CD 24HR PO SCH (08:34)
[2019-01-01] MEDS: ENOXAPARIN 40MG/0.4ML SYR SUBCUT SCH (08:34)
[2019-01-01] MEDS: CLOPIDOGREL 75MG TABLET PO SCH ×2 (08:34→18:02)
[2019-01-01] MEDS: LOSARTAN POTASSIUM 25 MG TABLET PO SCH ×2 (08:34→20:49)
[2019-01-01 09:10] LABS: CHLORIDE 105 mEq/L (98-107)
[2019-01-01 09:21] LABS: LDL CHOLESTEROL 98 mg/dL (5-100)
[2019-01-01 09:22] LABS: CREATINE KINASE 18 IU/L (39-308)
[2019-01-01 09:23] LABS: CREATINE KINASE MB FRACTION 1.2 ng/mL (0.5-3.6); HDL CHOLESTEROL 57 mg/dL (40-59)
[2019-01-01] MEDS: BUDESONIDE 0.5MG/2ML NEB HHN SCH ×2 (09:41→20:17)
[2019-01-01] MEDS: IPRATROPIUM/ALBUTEROL 0.5-3(2.5)MG/3ML NEB NEB PRN ×2 (09:41→20:22)
[2019-01-01] MEDS ORDERED: DEXTROSE 50% WATER 50ML SYRINGE IV PRN (11:00)
[2019-01-01] MEDS: BLOOD SUGAR DIAGNOSTIC STRIP TEST SCH ×3 (11:47→20:53)
[2019-01-01] MEDS ORDERED: PHENYLEPHRINE 100MCG/ML 10ML VIAL (CATH LAB) IV ONE (12:00)
[2019-01-01] MEDS ORDERED: HEPARIN SODIUM 1,000 UNIT/1ML VIAL IV ONE (12:00)
[2019-01-01] MEDS ORDERED: NITROGLYCERIN 50MCG/ML 10ML VIAL (CATH LAB) IV ONE (12:00)
[2019-01-01] MEDS ORDERED: NICARDIPINE 100MCG/ML 10ML VIAL (CATH LAB) IV ONE (12:00)
[2019-01-01] MEDS ORDERED: MIDAZOLAM HCL 2 MG/2 ML VIAL ONE (12:05)
[2019-01-01] MEDS ORDERED: FENTANYL CITRATE/PF 50MCG/ML 2ML VIAL ONE (12:05)
[2019-01-01] MEDS ORDERED: LIDOCAINE HCL 1% 20ML VIAL (Pyxis) INJ ONE (12:06)
[2019-01-01] MEDS ORDERED: IODIXANOL 320MG/ML 200ML BOTTLE ONE (12:06)
[2019-01-01] MEDS: INSULIN LISPRO 100 UNITS/ML SUBCUT SCH ×3 (12:20→21:02)
[2019-01-01] MEDS ORDERED: ACETAMINOPHEN 325MG TABLET PO PRN (13:15)
[2019-01-01] MEDS ORDERED: SODIUM CHLORIDE 0.45% 1,000 ML IV SCH (13:15)
[2019-01-01] MEDS ORDERED: MORPHINE SULFATE 2 MG/ML CPJ (NOT FOR IM USE) IV PRN (13:15)
[2019-01-01] MEDS ORDERED: ATROPINE SULFATE 1MG/10ML SYR IV PRN (13:15)
[2019-01-01] MEDS: FAMOTIDINE 20MG TABLET PO SCH (20:49)
[2019-01-01] MEDS: ATORVASTATIN CALCIUM 20MG TABLET PO SCH (20:49)
[2019-01-01] MEDS: APIXABAN 5 MG TABLET PO SCH (20:49)
[2019-01-01] MEDS: TEMAZEPAM 15MG CAPSULE PO PRN (21:01)
[2019-01-01] MEDS: LEVOFLOXACIN 500MG PREMIX 100 ML IV SCH (21:04)
[2019-01-01] MEDS ORDERED: INSULIN GLARGINE UD 100 UNITS/ML SYR SUBCUT SCH (22:00)
[2019-01-02] VITALS (15 sets, daily range): BP systolic 120–168; BP diastolic 71–113
[2019-01-02] MEDS: NITROGLYCERIN OINT 1GM/INCH UDPKT TD SCH ×4 (00:19→18:40)
[2019-01-02] MEDS: ONDANSETRON HCL 4MG/2ML INJ IV PRN ×2 (01:43→10:45)
[2019-01-02] MEDS: MORPHINE SULFATE 2 MG/ML CPJ (NOT FOR IM USE) IV PRN (01:43)
[2019-01-02] MEDS: METHYLPREDNISOLONE SOD SUCC 125 MG/2 ML VIAL IV SCH ×3 (05:55→21:02)
[2019-01-02] MEDS: DIPHENHYDRAMINE 50MG/ML VIAL IV PRN ×4 (05:58→21:15)
[2019-01-02] MEDS: BLOOD SUGAR DIAGNOSTIC STRIP TEST SCH ×4 (06:02→20:13)
[2019-01-02 06:44] LABS: BASOPHILS % 0.3 % (0.0-2.0); HEMATOCRIT. 37.9 % (42.0-52.0); HEMOGLOBIN. 12.7 g/dL (14.0-18.0); LYMPHOCYTES % 9.6 % (20.0-50.0); MEAN CORPUSCULAR HEMOGLOBIN 31.8 pg (28.0-32.0); MEAN CORPUSCULAR VOLUME 95.2 fL (80.0-94.0); MEAN PLATELET VOLUME 9.1 fl (7.4-10.4); MONOCYTES % 3.7 % (2.0-8.0); NEUTROPHILS % 86.4 % (40.0-76.0); PLATELET 242 x1000/uL (130-400); RED BLOOD CELL COUNT 3.99 mill/uL (4.7-6.1); RED CELL DISTRIBUTION WIDTH 18.2 % (11.6-14.6)
[2019-01-02 06:56] LABS: CHLORIDE 108 mEq/L (98-107)
[2019-01-02] MEDS: INSULIN LISPRO 100 UNITS/ML SUBCUT SCH ×4 (08:18→20:14)
[2019-01-02] MEDS: HYDROCODONE/ACETAMINOPHEN 5/325MG TABLET PO PRN ×4 (08:19→23:27)
[2019-01-02] MEDS: APIXABAN 5 MG TABLET PO SCH ×2 (08:20→17:19)
[2019-01-02] MEDS: CLOPIDOGREL 75MG TABLET PO SCH ×2 (08:20→17:19)
[2019-01-02] MEDS: LOSARTAN POTASSIUM 25 MG TABLET PO SCH ×2 (08:20→20:12)
[2019-01-02] MEDS ORDERED: DILTIAZEM HCL 120MG CAPSULE CD 24HR PO SCH (09:00)
[2019-01-02] MEDS: IPRATROPIUM/ALBUTEROL 0.5-3(2.5)MG/3ML NEB NEB PRN ×2 (09:11→22:13)
[2019-01-02] MEDS: BUDESONIDE 0.5MG/2ML NEB HHN SCH ×2 (09:12→21:55)
[2019-01-02] MEDS ORDERED: DILTIAZEM HCL 5MG/ML 5ML VIAL IV NR (10:30)
[2019-01-02] MEDS: MECLIZINE 25MG TABLET PO PRN (10:37)
[2019-01-02] MEDS: GUAIFENESIN 200MG/10ML SUGAR FREE UDC PO PRN (14:31)
[2019-01-02] MEDS: ATORVASTATIN CALCIUM 20MG TABLET PO SCH (20:11)
[2019-01-02] MEDS: LEVOFLOXACIN 500MG PREMIX 100 ML IV SCH (20:11)
[2019-01-02] MEDS: FAMOTIDINE 20MG TABLET PO SCH (20:11)
[2019-01-02] MEDS: DILTIAZEM HCL 120MG CAPSULE CD 24HR PO SCH (20:12)
[2019-01-02] MEDS: TEMAZEPAM 15MG CAPSULE PO PRN (21:15)
[2019-01-02] MEDS: INSULIN GLARGINE UD 100 UNITS/ML SYR SUBCUT SCH (21:43)
[2019-01-03] VITALS (12 sets, daily range): BP systolic 140–167; BP diastolic 71–98
[2019-01-03] MEDS: NITROGLYCERIN OINT 1GM/INCH UDPKT TD SCH ×3 (02:03→19:00)
[2019-01-03] MEDS: HYDROCODONE/ACETAMINOPHEN 5/325MG TABLET PO PRN ×4 (03:28→22:04)
[2019-01-03] MEDS: DIPHENHYDRAMINE 50MG/ML VIAL IV PRN ×4 (03:32→22:03)
[2019-01-03] MEDS: METHYLPREDNISOLONE SOD SUCC 125 MG/2 ML VIAL IV SCH ×3 (05:01→21:53)
[2019-01-03] MEDS: BLOOD SUGAR DIAGNOSTIC STRIP TEST SCH ×4 (06:02→20:29)
[2019-01-03] MEDS: ONDANSETRON HCL 4MG/2ML INJ IV PRN ×2 (06:45→23:32)
[2019-01-03] MEDS: CLOPIDOGREL 75MG TABLET PO SCH ×2 (08:36→17:54)
[2019-01-03] MEDS: APIXABAN 5 MG TABLET PO SCH ×2 (08:37→17:54)
[2019-01-03] MEDS: LOSARTAN POTASSIUM 25 MG TABLET PO SCH ×2 (08:37→20:27)
[2019-01-03] MEDS: DILTIAZEM HCL 120MG CAPSULE CD 24HR PO SCH ×2 (08:37→20:27)
[2019-01-03] MEDS: INSULIN LISPRO 100 UNITS/ML SUBCUT SCH ×4 (08:41→20:28)
[2019-01-03] MEDS: BUDESONIDE 0.5MG/2ML NEB HHN SCH ×2 (09:06→21:06)
[2019-01-03] MEDS: IPRATROPIUM/ALBUTEROL 0.5-3(2.5)MG/3ML NEB NEB PRN ×3 (09:06→15:09)
[2019-01-03] MEDS: INSULIN GLARGINE UD 100 UNITS/ML SYR SUBCUT SCH ×2 (10:00→22:05)
[2019-01-03] MEDS: GUAIFENESIN 200MG/10ML SUGAR FREE UDC PO PRN (10:04)
[2019-01-03] MEDS: MECLIZINE 25MG TABLET PO PRN (14:25)
[2019-01-03] MEDS: ATORVASTATIN CALCIUM 20MG TABLET PO SCH (20:26)
[2019-01-03] MEDS: LEVOFLOXACIN 500MG TABLET PO SCH (20:26)
[2019-01-03] MEDS: FAMOTIDINE 20MG TABLET PO SCH (20:27)
[2019-01-03] MEDS: TEMAZEPAM 15MG CAPSULE PO PRN (22:14)
[2019-01-04] VITALS (14 sets, daily range): BP systolic 131–163; BP diastolic 71–94
[2019-01-04] MEDS: NITROGLYCERIN OINT 1GM/INCH UDPKT TD SCH ×3 (03:00→19:00)
[2019-01-04] MEDS: METHYLPREDNISOLONE SOD SUCC 125 MG/2 ML VIAL IV SCH ×2 (06:03→14:04)
[2019-01-04] MEDS: DIPHENHYDRAMINE 50MG/ML VIAL IV PRN ×2 (06:03→14:05)
[2019-01-04] MEDS: HYDROCODONE/ACETAMINOPHEN 5/325MG TABLET PO PRN ×3 (06:13→21:55)
[2019-01-04] MEDS: BLOOD SUGAR DIAGNOSTIC STRIP TEST SCH ×4 (06:13→21:00)
[2019-01-04 08:37] LABS: HEMATOCRIT 38.6 % (42.0-52.0); HEMOGLOBIN 12.8 g/dL (14.0-18.0); MEAN CORPUSCULAR HEMOGLOBIN 31.5 pg (28.0-32.0); MEAN CORPUSCULAR VOLUME 94.9 fL (80.0-94.0); PLATELET 274 x1000/uL (130-400); RED BLOOD CELL COUNT 4.07 mill/uL (4.7-6.1); RED CELL DISTRIBUTION WIDTH 18.3 % (11.6-14.6)
[2019-01-04] MEDS: BUDESONIDE 0.5MG/2ML NEB HHN SCH ×2 (08:50→21:26)
[2019-01-04] MEDS: IPRATROPIUM/ALBUTEROL 0.5-3(2.5)MG/3ML NEB NEB PRN ×2 (08:50→21:26)
[2019-01-04 08:55] LABS: CHLORIDE 105 mEq/L (98-107)
[2019-01-04] MEDS: INSULIN LISPRO 100 UNITS/ML SUBCUT SCH ×4 (09:12→21:57)
[2019-01-04] MEDS: CLOPIDOGREL 75MG TABLET PO SCH ×2 (09:13→17:53)
[2019-01-04] MEDS: ONDANSETRON HCL 4MG/2ML INJ IV PRN ×2 (09:14→23:12)
[2019-01-04] MEDS: DILTIAZEM HCL 120MG CAPSULE CD 24HR PO SCH ×2 (09:14→21:20)
[2019-01-04] MEDS: MECLIZINE 25MG TABLET PO PRN (09:14)
[2019-01-04] MEDS: LOSARTAN POTASSIUM 25 MG TABLET PO SCH ×2 (09:14→21:21)
[2019-01-04] MEDS: APIXABAN 5 MG TABLET PO SCH ×2 (09:14→17:53)
[2019-01-04] MEDS: INSULIN GLARGINE UD 100 UNITS/ML SYR SUBCUT SCH ×2 (09:20→21:57)
[2019-01-04] MEDS: GUAIFENESIN 200MG/10ML SUGAR FREE UDC PO PRN (12:00)
[2019-01-04] MEDS ORDERED: INSULIN LISPRO 100 UNITS/ML SUBCUT SCH (12:15)
[2019-01-04] MEDS: LORAZEPAM 0.5MG TABLET PO PRN ×2 (14:05→23:12)
[2019-01-04] MEDS ORDERED: ATOR40TA70 PO (19:55)
[2019-01-04] MEDS ORDERED: DILT-2 PO (19:56)
[2019-01-04] MEDS ORDERED: LIDO700A15 TP (20:07)
[2019-01-04] MEDS ORDERED: SITA100T11 PO (20:07)
[2019-01-04] MEDS ORDERED: ALBU90AE INH (20:07)
[2019-01-04] MEDS ORDERED: TIOT18CA3 INH (20:07)
[2019-01-04] MEDS ORDERED: PRED10TA PO (20:07)
[2019-01-04] MEDS ORDERED: OMEP40CA34 PO (20:07)
[2019-01-04] MEDS ORDERED: FLUT12AE7 INH (20:07)
[2019-01-04] MEDS ORDERED: BENZ200C52 PO (20:07)
[2019-01-04] MEDS ORDERED: ALPR-339 PO (20:07)
[2019-01-04] MEDS: FAMOTIDINE 20MG TABLET PO SCH (21:20)
[2019-01-04] MEDS: ATORVASTATIN CALCIUM 20MG TABLET PO SCH (21:21)
[2019-01-04] MEDS: METHYLPREDNISOLONE SOD SUCC 40 MG/ML VIAL IV SCH (21:53)
[2019-01-04] MEDS: LEVOFLOXACIN 500MG TABLET PO SCH (21:55)
[2019-01-05] VITALS (9 sets, daily range): BP systolic 130–154; BP diastolic 68–96
[2019-01-05] MEDS: TEMAZEPAM 15MG CAPSULE PO PRN (00:28)
[2019-01-05] MEDS: NITROGLYCERIN OINT 1GM/INCH UDPKT TD SCH ×2 (03:00→10:37)
[2019-01-05] MEDS: DIPHENHYDRAMINE 50MG/ML VIAL IV PRN ×2 (03:06→09:03)
[2019-01-05] MEDS: HYDROCODONE/ACETAMINOPHEN 5/325MG TABLET PO PRN ×2 (04:49→09:49)
[2019-01-05] MEDS: BLOOD SUGAR DIAGNOSTIC STRIP TEST SCH ×2 (06:50→11:43)
[2019-01-05 07:30] LABS: CHLORIDE 105 mEq/L (98-107)
[2019-01-05 07:52] LABS: HEMOGLOBIN 13.3 g/dL (14.0-18.0); MEAN CORPUSCULAR HEMOGLOBIN 31.6 pg (28.0-32.0); MEAN CORPUSCULAR VOLUME 94.9 fL (80.0-94.0); PLATELET 272 x1000/uL (130-400); RED BLOOD CELL COUNT 4.22 mill/uL (4.7-6.1); RED CELL DISTRIBUTION WIDTH 18.2 % (11.6-14.6)
[2019-01-05] MEDS: INSULIN GLARGINE UD 100 UNITS/ML SYR SUBCUT SCH (09:02)
[2019-01-05] MEDS: INSULIN LISPRO 100 UNITS/ML SUBCUT SCH ×2 (09:02→12:09)
[2019-01-05] MEDS: LOSARTAN POTASSIUM 25 MG TABLET PO SCH (09:03)
[2019-01-05] MEDS: APIXABAN 5 MG TABLET PO SCH (09:03)
[2019-01-05] MEDS: CLOPIDOGREL 75MG TABLET PO SCH (09:03)
[2019-01-05] MEDS: DILTIAZEM HCL 120MG CAPSULE CD 24HR PO SCH (09:05)
[2019-01-05] MEDS: BUDESONIDE 0.5MG/2ML NEB HHN SCH (09:13)
[2019-01-05] MEDS: METHYLPREDNISOLONE SOD SUCC 40 MG/ML VIAL IV SCH (09:47)
[2019-01-05] MEDS: LORAZEPAM 0.5MG TABLET PO PRN (09:49)
== END 2019-01-05 15:30 | disposition home or self-care (01) | DRG 286 ==
LOC: ER 10:33 → 3WST 12:00 → EDBEDREQTM 12:17 → EDBEDREQ 12:17 → ENRESERV 13:43 → 3WST 01-04 00:58
PROVIDERS: ADMIT Internal Medicine; ATTEND Internal Medicine
PROC: 5A09357 Assistance with Respiratory Ventilation, Less than 24 Consecutive Hours, Continuous Positive Airway Pressure (ICD-10-PCS; 2018-12-31)
PROC: 4A023N7 Measurement of Cardiac Sampling and Pressure, Left Heart, Percutaneous Approach (ICD-10-PCS; principal; 2019-01-01)
PROC: B2151ZZ Fluoroscopy of Left Heart using Low Osmolar Contrast (ICD-10-PCS; 2019-01-01)
PROC: B2111ZZ Fluoroscopy of Multiple Coronary Arteries using Low Osmolar Contrast (ICD-10-PCS; 2019-01-01)
PROC: 4A033BC Measurement of Arterial Pressure, Coronary, Percutaneous Approach (ICD-10-PCS; 2019-01-01)
DX: I48.92 Unspecified atrial flutter (principal); J96.00 Acute respiratory failure, unspecified whether with hypoxia or hypercapnia; J18.9 Pneumonia, unspecified organism; J45.901 Unspecified asthma with (acute) exacerbation; J44.1 Chronic obstructive pulmonary disease with (acute) exacerbation; E87.2 Acidosis; Z68.41 Body mass index [BMI] 40.0-44.9, adult; I25.10 Atherosclerotic heart disease of native coronary artery without angina pectoris; I95.9 Hypotension, unspecified; I47.1 Supraventricular tachycardia; E87.5 Hyperkalemia; E11.65 Type 2 diabetes mellitus with hyperglycemia; I11.0 Hypertensive heart disease with heart failure; I50.9 Heart failure, unspecified; E78.00 Pure hypercholesterolemia, unspecified; F41.1 Generalized anxiety disorder; J06.9 Acute upper respiratory infection, unspecified; E87.6 Hypokalemia; E78.1 Pure hyperglyceridemia; R07.89 Other chest pain; E66.01 Morbid (severe) obesity due to excess calories; I25.2 Old myocardial infarction; Z88.6 Allergy status to analgesic agent; Z79.02 Long term (current) use of antithrombotics/antiplatelets; Z79.01 Long term (current) use of anticoagulants; Z79.52 Long term (current) use of systemic steroids; Z95.5 Presence of coronary angioplasty implant and graft; Z88.8 Allergy status to other drugs, medicaments and biological substances; Z79.899 Other long term (current) drug therapy
CPT/HCPCS: 36415; 36600; 71045; 80048; 80061; 82375; 82550; 82553; 82805; 82962; 83605; 83735; 83880; 84145; 84439; 84443; 84484; 85027; 85347; 85379; 93005; 93306; 93458; 93571; 94640; 94660; 96365; 99291; C1769; C1887; C1893; J1200; J1644; J1815; J1956; J2250; J2270; J2370; J2405; J2920; J2930; J3010; J3490; J7040; J7611; J7620; J7626; J8597; Q9967

== ENCOUNTER 2019-01-19 12:08 | Inpatient (IN) | payer OTHER ==
[~2019-01-19] VITALS: Ht 172.7 cm; Wt 121.1 kg
[~2019-01-19 12:08] MED LIST changes: +ALBU90AE INH; +ALPR-339 PO; -ATOR20TA65 MT; +ATOR40TA70 PO; +BENZ200C52 PO; +DILT-2 PO; -DILT180T11 MT; +FLUT12AE7 INH; +LIDO700A15 TP; -LOSA50TA3 PO; +OMEP40CA34 PO; +PRED10TA PO; +SITA100T11 PO; +TIOT18CA3 INH
[2019-01-19] MEDS ORDERED: METHYLPREDNISOLONE SOD SUCC 125 MG/2 ML VIAL IV STA (12:37)
[2019-01-19] MEDS ORDERED: MORPHINE SULFATE 4 MG/ML CPJ (NOT FOR IM USE) IV STA (12:37)
[2019-01-19] MEDS ORDERED: ONDANSETRON HCL 4MG/2ML INJ IV STA (12:37)
[2019-01-19] MEDS ORDERED: IPRATROPIUM BROMIDE (0.02%) 0.5MG/2.5ML NEB HHN STA (12:37)
[2019-01-19] MEDS ORDERED: ALBUTEROL (0.083%) 2.5MG/3ML NEB HHN STA (12:37)
[2019-01-19] MEDS ORDERED: MAGNESIUM 2 G PREMIX 50 ML IV STA (12:37)
[2019-01-19] MEDS ORDERED: DILTIAZEM HCL 5MG/ML 5ML VIAL IV ONE (12:45)
[2019-01-19 12:57] LABS: BASOPHILS % 0.7 % (0.0-2.0); EOSINOPHILS % 0.8 % (0.0-5.0); HEMATOCRIT. 43.8 % (42.0-52.0); HEMOGLOBIN. 14.5 g/dL (14.0-18.0); LYMPHOCYTES % 30.2 % (20.0-50.0); MEAN CORPUSCULAR HEMOGLOBIN 31.2 pg (28.0-32.0); MEAN CORPUSCULAR VOLUME 94.1 fL (80.0-94.0); MEAN PLATELET VOLUME 8.5 fl (7.4-10.4); MONOCYTES % 9.8 % (2.0-8.0); NEUTROPHILS % 58.5 % (40.0-76.0); PLATELET 234 x1000/uL (130-400); RED BLOOD CELL COUNT 4.66 mill/uL (4.7-6.1); RED CELL DISTRIBUTION WIDTH 18.4 % (11.6-14.6)
[2019-01-19] MEDS ORDERED: DIPHENHYDRAMINE 50MG/ML VIAL IV ONE (13:00)
[2019-01-19 13:03] LABS: CHLORIDE 106 mEq/L (98-107)
[2019-01-19 13:11] LABS: ETHANOL BLOOD < 10 mg/dL
[2019-01-19] MEDS ORDERED: NA PHOS,M-B/NA PHOS,DI-BA ENEMA 118ML PR PRN (14:45)
[2019-01-19] MEDS ORDERED: ACETAMINOPHEN 650MG SUPP PR PRN (14:45)
[2019-01-19] MEDS ORDERED: ACETAMINOPHEN 325MG TABLET PO PRN (14:45)
[2019-01-19] MEDS ORDERED: IPRATROPIUM/ALBUTEROL 0.5-3(2.5)MG/3ML NEB NEB PRN (14:45)
[2019-01-19] MEDS ORDERED: GUAIFENESIN 200MG/10ML SUGAR FREE UDC PO PRN (14:45)
[2019-01-19] MEDS ORDERED: CLONIDINE 0.1MG TABLET PO PRN (14:45)
[2019-01-19] MEDS ORDERED: MAGNESIUM/ALUMINUM HYDROXIDE/SIMETHICONE 30ML UDC PO PRN (14:45)
[2019-01-19] MEDS ORDERED: DOCUSATE SODIUM 100MG CAPSULE PO PRN (14:45)
[2019-01-19] MEDS ORDERED: DEXTROSE 50% WATER 50ML SYRINGE IV PRN (14:45)
[2019-01-19] MEDS ORDERED: MORPHINE SULFATE 4 MG/ML CPJ (NOT FOR IM USE) IV ONE (14:45)
[2019-01-19] MEDS: MORPHINE SULFATE 2 MG/ML CPJ (NOT FOR IM USE) IV PRN ×3 (15:25→22:11)
[2019-01-19] MEDS: ONDANSETRON HCL 4MG/2ML INJ IV PRN (15:38)
[2019-01-19] MEDS ORDERED: MEDICATION NOT ON FORMULARY EA (Ferrous Sulfate 1 TAB) MT SCH (17:00)
[2019-01-19 19:09] LABS: CLARITY URINE CLEAR (CLEAR); COLOR URINE DARK YELLOW (YELLOW); KETONES URINE 1+ (NEGATIVE); LEUKOCYTE ESTERASE URINE NEGATIVE (NEGATIVE); NITRITE URINE NEGATIVE (NEGATIVE); OCCULT BLOOD URINE NEGATIVE (NEGATIVE); PROTEIN URINE TRACE (NEGATIVE); SPECIFIC GRAVITY URINE 1.024 (1.005-1.030); UROBILINOGEN URINE 0.2 E.U./dL (0.2-1.0)
[2019-01-19 19:29] LABS: *AMPHETAMINES SCREEN URINE NEGATIVE (NEGATIVE); *BARBITURATES SCREEN URINE NEGATIVE (NEGATIVE); *BENZODIAZEPINES SCREEN URINE NEGATIVE (NEGATIVE); *COCAINE SCREEN URINE NEGATIVE (NEGATIVE)
[2019-01-19 19:31] LABS: CANNABINOID URINE SCREEN NEGATIVE (NEGATIVE); METHADONE URINE SCREEN NEGATIVE (NEGATIVE); OPIATES URINE SCREEN PRESUMTIVE POSITIVE (NEGATIVE); PHENCYCLIDINE URINE SCREEN NEGATIVE (NEGATIVE)
[2019-01-19 20:00] VITALS: BP 117/89
[2019-01-19 20:44] VITALS: BP 117/89
[2019-01-19] MEDS: BLOOD SUGAR DIAGNOSTIC STRIP TEST SCH ×2 (21:00→21:49)
[2019-01-19] MEDS: INSULIN LISPRO 100 UNITS/ML SUBCUT SCH ×2 (21:00→22:07)
[2019-01-19] MEDS: IPRATROPIUM/ALBUTEROL 0.5-3(2.5)MG/3ML NEB NEB SCH (21:30)
[2019-01-19 22:00] VITALS: BP 140/65
[2019-01-19] MEDS: FAMOTIDINE 20MG/2ML VIAL IV SCH (22:08)
[2019-01-19] MEDS: LOSARTAN POTASSIUM 50 MG TABLET PO SCH (22:09)
[2019-01-19] MEDS: METHYLPREDNISOLONE SOD SUCC 40 MG/ML VIAL IV SCH (22:09)
[2019-01-19] MEDS: DILTIAZEM HCL 180MG CAPSULE CD 24HR PO SCH (22:09)
[2019-01-19] MEDS: DIPHENHYDRAMINE 50MG/ML VIAL IV PRN (22:10)
[2019-01-19] MEDS: CLOPIDOGREL 75MG TABLET PO SCH (22:10)
[2019-01-19] MEDS: APIXABAN 5 MG TABLET PO SCH (22:10)
[2019-01-19] MEDS: PIPERACILLIN/TAZOBACTAM 3.375 G in DEXT 5% WATER 100 ML IV SCH (22:14)
[2019-01-20] VITALS (18 sets, daily range): BP systolic 109–152; BP diastolic 54–92
[2019-01-20] MEDS: LORAZEPAM 0.5MG TABLET PO PRN ×2 (00:09→08:57)
[2019-01-20] MEDS: IPRATROPIUM/ALBUTEROL 0.5-3(2.5)MG/3ML NEB NEB SCH ×6 (01:30→21:52)
[2019-01-20] MEDS: BUDESONIDE 0.5MG/2ML NEB HHN SCH ×3 (01:30→21:00)
[2019-01-20] MEDS: MORPHINE SULFATE 2 MG/ML CPJ (NOT FOR IM USE) IV PRN ×5 (02:27→21:47)
[2019-01-20] MEDS: PIPERACILLIN/TAZOBACTAM 3.375 G in DEXT 5% WATER 100 ML IV SCH ×3 (03:49→18:32)
[2019-01-20] MEDS: METHYLPREDNISOLONE SOD SUCC 40 MG/ML VIAL IV SCH ×3 (05:41→21:46)
[2019-01-20] MEDS: BLOOD SUGAR DIAGNOSTIC STRIP TEST SCH ×3 (07:01→21:00)
[2019-01-20] MEDS: INSULIN LISPRO 100 UNITS/ML SUBCUT SCH ×4 (07:04→23:15)
[2019-01-20 07:06] LABS: BASOPHILS % 0.3 % (0.0-2.0); HEMATOCRIT. 39.5 % (42.0-52.0); HEMOGLOBIN. 13.3 g/dL (14.0-18.0); LYMPHOCYTES % 21.1 % (20.0-50.0); MEAN CORPUSCULAR VOLUME 94.7 fL (80.0-94.0); MEAN PLATELET VOLUME 9.4 fl (7.4-10.4); MONOCYTES % 2.2 % (2.0-8.0); NEUTROPHILS % 76.4 % (40.0-76.0); PLATELET 227 x1000/uL (130-400); RED BLOOD CELL COUNT 4.17 mill/uL (4.7-6.1); RED CELL DISTRIBUTION WIDTH 18.4 % (11.6-14.6)
[2019-01-20 07:20] LABS: CHLORIDE 102 mEq/L (98-107)
[2019-01-20 07:44] LABS: LDL CHOLESTEROL 103 mg/dL (5-100)
[2019-01-20 07:45] LABS: CREATINE KINASE 33 IU/L (39-308); CREATINE KINASE MB FRACTION 1.3 ng/mL (0.5-3.6); HDL CHOLESTEROL 51 mg/dL (40-59); T4 FREE 0.94 ng/dL (0.76-1.46)
[2019-01-20] MEDS ORDERED: INSULIN LISPRO 100 UNITS/ML SUBCUT SCH (08:00)
[2019-01-20] MEDS: CLOPIDOGREL 75MG TABLET PO SCH ×2 (08:35→21:46)
[2019-01-20] MEDS: DILTIAZEM HCL 180MG CAPSULE CD 24HR PO SCH ×2 (08:37→21:46)
[2019-01-20] MEDS: FERROUS SULFATE 325MG TABLET PO SCH ×2 (08:38→18:31)
[2019-01-20] MEDS: LINAGLIPTIN 5MG TABLET PO SCH (08:38)
[2019-01-20] MEDS: DULOXETINE HCL 30MG DR CAPSULE PO SCH (08:38)
[2019-01-20] MEDS: APIXABAN 5 MG TABLET PO SCH ×2 (08:38→21:46)
[2019-01-20] MEDS: MULTIVITAMINS,THER W-MINERALS TABLET PO SCH (08:38)
[2019-01-20] MEDS: LOSARTAN POTASSIUM 50 MG TABLET PO SCH ×2 (08:38→21:46)
[2019-01-20] MEDS ORDERED: LOSARTAN POTASSIUM 50 MG TABLET PO SCH (09:00)
[2019-01-20] MEDS ORDERED: DILTIAZEM HCL 240 MG PO SCH (09:00)
[2019-01-20] MEDS ORDERED: MEDICATION NOT ON FORMULARY EA (Sitagliptin Phosphate (Januvia) 100 MG) PO SCH (09:00)
[2019-01-20] MEDS ORDERED: MEDICATION NOT ON FORMULARY EA (Multivitamin (Multi Vitamin Daily) 1 TAB) MT SCH (09:00)
[2019-01-20] MEDS ORDERED: INSULIN GLARGINE UD 100 UNITS/ML SYR SUBCUT SCH (10:00)
[2019-01-20] MEDS: FAMOTIDINE 20MG/2ML VIAL IV SCH ×2 (10:18→21:45)
[2019-01-20] MEDS: DIPHENHYDRAMINE 50MG/ML VIAL IV PRN ×2 (13:38→21:47)
[2019-01-20 15:26] LABS: INR 1.1
[2019-01-20] MEDS: ALPRAZOLAM 0.25 MG TABLET PO PRN (18:31)
[2019-01-20] MEDS: INSULIN GLARGINE UD 100 UNITS/ML SYR SUBCUT SCH (23:16)
[2019-01-21] VITALS (12 sets, daily range): BP systolic 114–150; BP diastolic 52–84
[2019-01-21] MEDS: PIPERACILLIN/TAZOBACTAM 3.375 G in DEXT 5% WATER 100 ML IV SCH ×4 (01:17→19:09)
[2019-01-21] MEDS: IPRATROPIUM/ALBUTEROL 0.5-3(2.5)MG/3ML NEB NEB SCH ×6 (01:21→20:27)
[2019-01-21] MEDS: MORPHINE SULFATE 2 MG/ML CPJ (NOT FOR IM USE) IV PRN ×2 (02:46→07:00)
[2019-01-21] MEDS: ALPRAZOLAM 0.25 MG TABLET PO PRN ×3 (02:47→22:25)
[2019-01-21 06:42] LABS: HEMATOCRIT. 37.9 % (42.0-52.0); HEMOGLOBIN. 12.7 g/dL (14.0-18.0); LYMPHOCYTES % 7.9 % (20.0-50.0); MEAN CORPUSCULAR HEMOGLOBIN 31.4 pg (28.0-32.0); MEAN CORPUSCULAR VOLUME 93.7 fL (80.0-94.0); MEAN PLATELET VOLUME 9.1 fl (7.4-10.4); NEUTROPHILS % 88.1 % (40.0-76.0); PLATELET 230 x1000/uL (130-400); RED BLOOD CELL COUNT 4.05 mill/uL (4.7-6.1); RED CELL DISTRIBUTION WIDTH 18.4 % (11.6-14.6)
[2019-01-21 06:50] LABS: CHLORIDE 103 mEq/L (98-107)
[2019-01-21] MEDS: METHYLPREDNISOLONE SOD SUCC 40 MG/ML VIAL IV SCH ×3 (06:59→21:05)
[2019-01-21] MEDS: BLOOD SUGAR DIAGNOSTIC STRIP TEST SCH ×4 (07:00→20:40)
[2019-01-21] MEDS: DIPHENHYDRAMINE 50MG/ML VIAL IV PRN ×3 (07:00→21:16)
[2019-01-21] MEDS: BUDESONIDE 0.5MG/2ML NEB HHN SCH ×2 (08:31→21:00)
[2019-01-21] MEDS: MULTIVITAMINS,THER W-MINERALS TABLET PO SCH (09:01)
[2019-01-21] MEDS: FAMOTIDINE 20MG/2ML VIAL IV SCH ×2 (09:01→21:05)
[2019-01-21] MEDS: DULOXETINE HCL 30MG DR CAPSULE PO SCH (09:02)
[2019-01-21] MEDS: LINAGLIPTIN 5MG TABLET PO SCH (09:02)
[2019-01-21] MEDS: FERROUS SULFATE 325MG TABLET PO SCH ×2 (09:02→16:05)
[2019-01-21] MEDS: CLOPIDOGREL 75MG TABLET PO SCH ×2 (09:02→21:06)
[2019-01-21] MEDS: APIXABAN 5 MG TABLET PO SCH ×2 (09:02→21:06)
[2019-01-21] MEDS: DILTIAZEM HCL 180MG CAPSULE CD 24HR PO SCH ×2 (09:03→21:06)
[2019-01-21] MEDS: LOSARTAN POTASSIUM 50 MG TABLET PO SCH ×2 (09:04→21:06)
[2019-01-21] MEDS: INSULIN LISPRO 100 UNITS/ML SUBCUT SCH ×4 (09:06→21:02)
[2019-01-21] MEDS: ONDANSETRON HCL 4MG/2ML INJ IV PRN (09:14)
[2019-01-21] MEDS: INSULIN GLARGINE UD 100 UNITS/ML SYR SUBCUT SCH ×2 (09:22→21:02)
[2019-01-21] MEDS: LACTULOSE 20G/30ML UDC PO SCH (21:07)
[2019-01-21] MEDS: METOCLOPRAMIDE HCL 5MG TABLET PO SCH (21:07)
[2019-01-22] VITALS (10 sets, daily range): BP systolic 110–143; BP diastolic 61–86
[2019-01-22] MEDS: PIPERACILLIN/TAZOBACTAM 3.375 G in DEXT 5% WATER 100 ML IV SCH ×5 (00:32→23:21)
[2019-01-22] MEDS: HYDROCODONE/ACETAMINOPHEN 5/325MG TABLET PO PRN ×2 (02:32→08:57)
[2019-01-22] MEDS: DIPHENHYDRAMINE 50MG/ML VIAL IV PRN ×5 (02:37→23:14)
[2019-01-22] MEDS: IPRATROPIUM/ALBUTEROL 0.5-3(2.5)MG/3ML NEB NEB SCH ×6 (04:20→21:27)
[2019-01-22] MEDS: METHYLPREDNISOLONE SOD SUCC 40 MG/ML VIAL IV SCH ×3 (05:53→20:44)
[2019-01-22] MEDS: BLOOD SUGAR DIAGNOSTIC STRIP TEST SCH ×4 (06:31→21:13)
[2019-01-22] MEDS: METOCLOPRAMIDE HCL 5MG TABLET PO SCH ×3 (06:33→21:13)
[2019-01-22] MEDS: LACTULOSE 20G/30ML UDC PO SCH ×3 (06:33→21:13)
[2019-01-22 07:23] LABS: HEMATOCRIT. 37.9 % (42.0-52.0); HEMOGLOBIN. 12.6 g/dL (14.0-18.0); MEAN CORPUSCULAR HEMOGLOBIN 31.6 pg (28.0-32.0); MEAN CORPUSCULAR VOLUME 95.3 fL (80.0-94.0); MEAN PLATELET VOLUME 9.1 fl (7.4-10.4); PLATELET 243 x1000/uL (130-400); RED BLOOD CELL COUNT 3.98 mill/uL (4.7-6.1); RED CELL DISTRIBUTION WIDTH 18.6 % (11.6-14.6)
[2019-01-22 07:28] LABS: CHLORIDE 104 mEq/L (98-107)
[2019-01-22] MEDS: BUDESONIDE 0.5MG/2ML NEB HHN SCH ×2 (08:21→21:27)
[2019-01-22] MEDS: DILTIAZEM HCL 180MG CAPSULE CD 24HR PO SCH ×2 (08:45→20:44)
[2019-01-22] MEDS: MULTIVITAMINS,THER W-MINERALS TABLET PO SCH (08:46)
[2019-01-22] MEDS: FAMOTIDINE 20MG/2ML VIAL IV SCH ×2 (08:46→20:44)
[2019-01-22] MEDS: CLOPIDOGREL 75MG TABLET PO SCH ×2 (08:46→20:44)
[2019-01-22] MEDS: FERROUS SULFATE 325MG TABLET PO SCH ×2 (08:46→17:25)
[2019-01-22] MEDS: LOSARTAN POTASSIUM 50 MG TABLET PO SCH ×2 (08:46→20:44)
[2019-01-22] MEDS: APIXABAN 5 MG TABLET PO SCH ×2 (08:46→21:13)
[2019-01-22] MEDS: LINAGLIPTIN 5MG TABLET PO SCH (08:46)
[2019-01-22] MEDS: DULOXETINE HCL 30MG DR CAPSULE PO SCH (08:46)
[2019-01-22] MEDS: INSULIN LISPRO 100 UNITS/ML SUBCUT SCH ×4 (08:47→21:13)
[2019-01-22] MEDS: INSULIN GLARGINE UD 100 UNITS/ML SYR SUBCUT SCH ×2 (10:29→22:02)
[2019-01-22 12:23] LABS: PLATELET ESTIMATE NORMAL
[2019-01-22] MEDS ORDERED: ALPRAZOLAM 0.5 MG TABLET PO PRN (13:15)
[2019-01-22] MEDS: ALPRAZOLAM 0.25 MG TABLET PO PRN (14:15)
[2019-01-23] VITALS: BP 129/65
[2019-01-23] MEDS: IPRATROPIUM/ALBUTEROL 0.5-3(2.5)MG/3ML NEB NEB SCH ×3 (00:55→08:23)
[2019-01-23 04:00] VITALS: BP 120/68
[2019-01-23] MEDS: METOCLOPRAMIDE HCL 5MG TABLET PO SCH (05:17)
[2019-01-23] MEDS: METHYLPREDNISOLONE SOD SUCC 40 MG/ML VIAL IV SCH ×2 (05:17→13:00)
[2019-01-23] MEDS: HYDROCODONE/ACETAMINOPHEN 5/325MG TABLET PO PRN (05:19)
[2019-01-23] MEDS: PIPERACILLIN/TAZOBACTAM 3.375 G in DEXT 5% WATER 100 ML IV SCH ×2 (05:19→12:00)
[2019-01-23] MEDS: LACTULOSE 20G/30ML UDC PO SCH (05:31)
[2019-01-23] MEDS: DIPHENHYDRAMINE 50MG/ML VIAL IV PRN (05:41)
[2019-01-23] MEDS: BLOOD SUGAR DIAGNOSTIC STRIP TEST SCH ×2 (06:23→12:55)
[2019-01-23 08:20] VITALS: BP 135/81
[2019-01-23] MEDS: BUDESONIDE 0.5MG/2ML NEB HHN SCH (08:23)
[2019-01-23] MEDS: FAMOTIDINE 20MG/2ML VIAL IV SCH (08:36)
[2019-01-23] MEDS: DULOXETINE HCL 30MG DR CAPSULE PO SCH (08:36)
[2019-01-23] MEDS: MULTIVITAMINS,THER W-MINERALS TABLET PO SCH (08:36)
[2019-01-23] MEDS: LOSARTAN POTASSIUM 50 MG TABLET PO SCH (08:36)
[2019-01-23] MEDS: FERROUS SULFATE 325MG TABLET PO SCH (08:36)
[2019-01-23] MEDS: APIXABAN 5 MG TABLET PO SCH (08:36)
[2019-01-23] MEDS: LINAGLIPTIN 5MG TABLET PO SCH (08:36)
[2019-01-23] MEDS: DILTIAZEM HCL 180MG CAPSULE CD 24HR PO SCH (08:38)
[2019-01-23] MEDS: INSULIN LISPRO 100 UNITS/ML SUBCUT SCH ×2 (08:47→13:03)
[2019-01-23] MEDS: ALPRAZOLAM 0.25 MG TABLET PO PRN (08:47)
[2019-01-23] MEDS: CLOPIDOGREL 75MG TABLET PO SCH (08:47)
[2019-01-23] MEDS: ONDANSETRON HCL 4MG/2ML INJ IV PRN (09:04)
[2019-01-23] MEDS: INSULIN GLARGINE UD 100 UNITS/ML SYR SUBCUT SCH (09:51)
[2019-01-23 11:15] VITALS: BP 135/81
[2019-01-23 12:18] VITALS: BP 133/64
== END 2019-01-23 13:22 | disposition home or self-care (01) | DRG 202 ==
LOC: ER 12:49 → EDBEDREQTM 13:33 → EDBEDREQ 13:33 → ENRESERV 17:55 → 3WST 19:23 → 6WST 01-22 10:55
PROVIDERS: ADMIT Internal Medicine; ATTEND Internal Medicine
PROC: 5A09357 Assistance with Respiratory Ventilation, Less than 24 Consecutive Hours, Continuous Positive Airway Pressure (ICD-10-PCS; principal; 2019-01-19)
PROC: 5A09357 Assistance with Respiratory Ventilation, Less than 24 Consecutive Hours, Continuous Positive Airway Pressure (ICD-10-PCS; 2019-01-22)
DX: J45.901 Unspecified asthma with (acute) exacerbation (principal); Z68.41 Body mass index [BMI] 40.0-44.9, adult; R06.03 Acute respiratory distress; I25.10 Atherosclerotic heart disease of native coronary artery without angina pectoris; I11.9 Hypertensive heart disease without heart failure; E66.9 Obesity, unspecified; D72.829 Elevated white blood cell count, unspecified; D50.9 Iron deficiency anemia, unspecified; E05.90 Thyrotoxicosis, unspecified without thyrotoxic crisis or storm; E78.00 Pure hypercholesterolemia, unspecified; E78.5 Hyperlipidemia, unspecified; F41.9 Anxiety disorder, unspecified; G89.29 Other chronic pain; R00.0 Tachycardia, unspecified; M54.9 Dorsalgia, unspecified; Z79.4 Long term (current) use of insulin; Z95.5 Presence of coronary angioplasty implant and graft; Z79.01 Long term (current) use of anticoagulants; I25.2 Old myocardial infarction; Z88.6 Allergy status to analgesic agent; Z86.74 Personal history of sudden cardiac arrest; Z79.52 Long term (current) use of systemic steroids; Z88.8 Allergy status to other drugs, medicaments and biological substances
CPT/HCPCS: 36415; 71045; 80048; 80061; 80305; 80320; 81003; 82550; 82553; 82962; 83036; 83735; 83880; 84439; 84443; 84484; 93005; 94640; 94660; 99291; J1200; J1815; J2270; J2405; J2543; J2920; J2930; J3475; J3490; J7060; J7611; J7620; J7626; J8597; G0480

== ENCOUNTER 2019-02-02 20:04 | Inpatient (IN) | payer OTHER ==
[~2019-02-02] VITALS: Ht 167.6 cm; Wt 123.4 kg
[2019-02-02] MEDS ORDERED: METHYLPREDNISOLONE SOD SUCC 125 MG/2 ML VIAL IV STA (21:03)
[2019-02-02] MEDS ORDERED: ALBUTEROL (0.083%) 2.5MG/3ML NEB HHN STA (21:03)
[2019-02-02] MEDS ORDERED: IPRATROPIUM BROMIDE (0.02%) 0.5MG/2.5ML NEB HHN STA (21:03)
[2019-02-02] MEDS ORDERED: ALBUTEROL (0.5%) 2.5MG/0.5ML NEB HHN ONE (21:06)
[2019-02-02] MEDS ORDERED: IPRATROPIUM BROMIDE (0.02%) 0.5MG/2.5ML NEB ONE (21:07)
[2019-02-02 21:10] LABS: CHLORIDE 107 mEq/L (98-107)
[2019-02-02 21:19] LABS: BASOPHILS % 0.7 % (0.0-2.0); EOSINOPHILS % 0.6 % (0.0-5.0); HEMOGLOBIN. 14.4 g/dL (14.0-18.0); LYMPHOCYTES % 34.8 % (20.0-50.0); MEAN CORPUSCULAR HEMOGLOBIN 31.6 pg (28.0-32.0); MEAN CORPUSCULAR VOLUME 94.5 fL (80.0-94.0); MEAN PLATELET VOLUME 8.7 fl (7.4-10.4); MONOCYTES % 8.9 % (2.0-8.0); PLATELET 289 x1000/uL (130-400); RED BLOOD CELL COUNT 4.55 mill/uL (4.7-6.1); RED CELL DISTRIBUTION WIDTH 17.9 % (11.6-14.6)
[2019-02-02] MEDS ORDERED: VISCOUS LIDOCAINE 2% 15 ML UDC PO ONE (21:30)
[2019-02-02] MEDS ORDERED: ONDANSETRON HCL 4MG/2ML INJ IV STA (21:30)
[2019-02-02] MEDS ORDERED: CLOPIDOGREL 75MG TABLET PO ONE (21:30)
[2019-02-02] MEDS ORDERED: KETOROLAC 30MG/ML VIAL IV STA (21:30)
[2019-02-02] MEDS ORDERED: MAGNESIUM/ALUMINUM HYDROXIDE/SIMETHICONE 30ML UDC PO ONE (21:30)
[2019-02-02] MEDS ORDERED: NITROGLYCERIN 0.4MG TABLET SL SL ONE (21:30)
[2019-02-02 21:51] LABS: BG BASE EXCESS -0.8 mmol/L (-2.0-2.0); BG BILEVEL POS AIRWAY PRESSURE 15/5; BG CARBOXYHEMOGLOBIN 0.4 % (0.5-1.5); BG DEOXYHEMOGLOBIN 2.2 % (0.0-5.0); BG FRACTION INSPIRED OXYGEN 30; BG OXYGEN SATURATION 97.8 % (92.0-98.5); BG OXYHEMOGLOBIN 97.4 % (94.0-97.0); BG PCO2 35.6 mmHg (35.0-45.0); BG PH 7.429 (7.350-7.450); BG PO2 106.6 mmHg (75.0-100.0); BG SAMPLE SITE RIGHT RADIAL; BG TOTAL HEMOGLOBIN 14.3 g/dL (12.0-18.0); BG VENT MODE MASK - BIPAP
[2019-02-03] VITALS (7 sets, daily range): BP systolic 71–146; BP diastolic 29–95
[2019-02-03] MEDS: MORPHINE SULFATE 4 MG/ML CPJ (NOT FOR IM USE) IV PRN ×4 (00:35→19:18)
[2019-02-03] MEDS: ONDANSETRON HCL 4MG/2ML INJ IV PRN ×3 (00:35→08:30)
[2019-02-03] MEDS ORDERED: ALBUTEROL (0.083%) 2.5MG/3ML NEB HHN STA (05:09)
[2019-02-03] MEDS ORDERED: IPRATROPIUM BROMIDE (0.02%) 0.5MG/2.5ML NEB HHN STA (05:09)
[2019-02-03] MEDS ORDERED: ACETAMINOPHEN 650MG SUPP PR PRN (11:15)
[2019-02-03] MEDS ORDERED: DEXTROSE 50% WATER 50ML SYRINGE IV PRN (11:15)
[2019-02-03] MEDS ORDERED: DOCUSATE SODIUM 100MG CAPSULE PO PRN (11:15)
[2019-02-03] MEDS ORDERED: LORAZEPAM 0.5MG TABLET PO PRN (11:15)
[2019-02-03] MEDS ORDERED: ACETAMINOPHEN 325MG TABLET PO PRN (11:15)
[2019-02-03] MEDS ORDERED: CLONIDINE 0.1MG TABLET PO PRN (11:15)
[2019-02-03] MEDS ORDERED: IPRATROPIUM/ALBUTEROL 0.5-3(2.5)MG/3ML NEB NEB PRN (11:15)
[2019-02-03] MEDS ORDERED: HYDROCODONE/ACETAMINOPHEN 5/325MG TABLET PO PRN (11:15)
[2019-02-03] MEDS ORDERED: PIPERACILLIN/TAZOBACTAM 3.375 G in DEXT 5% WATER 100 ML IV SCH ×2 (11:15→12:00)
[2019-02-03] MEDS ORDERED: NA PHOS,M-B/NA PHOS,DI-BA ENEMA 118ML PR PRN (11:15)
[2019-02-03] MEDS: BLOOD SUGAR DIAGNOSTIC STRIP TEST SCH ×3 (12:35→20:40)
[2019-02-03] MEDS: INSULIN LISPRO 100 UNITS/ML SUBCUT SCH ×3 (13:00→20:54)
[2019-02-03 13:54] LABS: BG BASE EXCESS 1.1 mmol/L (-2.0-2.0); BG CARBOXYHEMOGLOBIN 0.7 % (0.5-1.5); BG DEOXYHEMOGLOBIN 4.2 % (0.0-5.0); BG FRACTION INSPIRED OXYGEN 28; BG HCO3 ACT 26.4 mmol/L (22.0-26.0); BG METHEMOGLOBIN 0.2 % (0.0-1.5); BG OXYGEN SATURATION 95.8 % (92.0-98.5); BG OXYHEMOGLOBIN 94.9 % (94.0-97.0); BG PCO2 44.5 mmHg (35.0-45.0); BG PH 7.391 (7.350-7.450); BG PO2 77.9 mmHg (75.0-100.0); BG SAMPLE SITE RIGHT RADIAL; BG TOTAL HEMOGLOBIN 14.3 g/dL (12.0-18.0); BG VENT MODE NASAL CANNULA
[2019-02-03] MEDS: IPRATROPIUM/ALBUTEROL 0.5-3(2.5)MG/3ML NEB NEB SCH ×2 (14:30→20:54)
[2019-02-03] MEDS: DIPHENHYDRAMINE 50MG/ML VIAL IV PRN ×2 (14:33→20:39)
[2019-02-03] MEDS: PIPERACILLIN/TAZOBACTAM 3.375 G in DEXT 5% WATER 100 ML IV SCH ×2 (14:33→18:10)
[2019-02-03] MEDS: METHYLPREDNISOLONE SOD SUCC 40 MG/ML VIAL IV SCH ×2 (14:34→21:37)
[2019-02-03] MEDS ORDERED: NITROGLYCERIN 0.4MG TABLET SL SL PRN (18:00)
[2019-02-03] MEDS: ATORVASTATIN CALCIUM 40MG TABLET PO SCH (20:39)
[2019-02-03] MEDS: BUDESONIDE 0.5MG/2ML NEB HHN SCH (20:54)
[2019-02-03] MEDS: ZOLPIDEM TARTRATE 5MG TABLET PO PRN (21:37)
[2019-02-03] MEDS: GUAIFENESIN 200MG/10ML SUGAR FREE UDC PO PRN (21:37)
[2019-02-03] MEDS: INSULIN GLARGINE UD 100 UNITS/ML SYR SUBCUT SCH (21:57)
[2019-02-03] MEDS ORDERED: INSULIN GLARGINE UD 100 UNITS/ML SYR SUBCUT SCH (22:00)
[2019-02-04] VITALS (12 sets, daily range): BP systolic 127–165; BP diastolic 54–98
[2019-02-04] MEDS: PIPERACILLIN/TAZOBACTAM 3.375 G in DEXT 5% WATER 100 ML IV SCH ×5 (00:48→23:47)
[2019-02-04] MEDS: DIPHENHYDRAMINE 50MG/ML VIAL IV PRN ×6 (01:24→22:23)
[2019-02-04] MEDS: MORPHINE SULFATE 4 MG/ML CPJ (NOT FOR IM USE) IV PRN ×6 (01:24→22:25)
[2019-02-04] MEDS: ONDANSETRON HCL 4MG/2ML INJ IV PRN ×5 (01:44→23:52)
[2019-02-04] MEDS: IPRATROPIUM/ALBUTEROL 0.5-3(2.5)MG/3ML NEB NEB SCH ×4 (02:01→20:27)
[2019-02-04] MEDS: METHYLPREDNISOLONE SOD SUCC 40 MG/ML VIAL IV SCH ×3 (06:25→23:00)
[2019-02-04 07:08] LABS: BASOPHILS % 0.3 % (0.0-2.0); HEMATOCRIT. 39.1 % (42.0-52.0); HEMOGLOBIN. 12.9 g/dL (14.0-18.0); LYMPHOCYTES % 13.5 % (20.0-50.0); MEAN CORPUSCULAR HEMOGLOBIN 31.7 pg (28.0-32.0); MEAN CORPUSCULAR VOLUME 95.7 fL (80.0-94.0); MEAN PLATELET VOLUME 9.1 fl (7.4-10.4); MONOCYTES % 1.9 % (2.0-8.0); NEUTROPHILS % 84.3 % (40.0-76.0); PLATELET 280 x1000/uL (130-400); RED BLOOD CELL COUNT 4.09 mill/uL (4.7-6.1); RED CELL DISTRIBUTION WIDTH 18.3 % (11.6-14.6)
[2019-02-04 07:09] LABS: CHLORIDE 105 mEq/L (98-107)
[2019-02-04 07:17] LABS: HDL CHOLESTEROL 47 mg/dL (40-59); LDL CHOLESTEROL 112 mg/dL (5-100)
[2019-02-04] MEDS: BLOOD SUGAR DIAGNOSTIC STRIP TEST SCH ×4 (07:30→20:59)
[2019-02-04] MEDS: BUDESONIDE 0.5MG/2ML NEB HHN SCH ×2 (08:32→20:27)
[2019-02-04] MEDS: FERROUS SULFATE 325MG TABLET PO SCH ×2 (08:57→18:16)
[2019-02-04] MEDS: MULTIVITAMINS,THER W-MINERALS TABLET PO SCH (08:57)
[2019-02-04] MEDS: APIXABAN 5 MG TABLET PO SCH ×2 (08:58→18:16)
[2019-02-04] MEDS: LOSARTAN POTASSIUM 50 MG TABLET PO SCH (08:58)
[2019-02-04] MEDS: DULOXETINE HCL 30MG DR CAPSULE PO SCH (08:58)
[2019-02-04] MEDS: LINAGLIPTIN 5MG TABLET PO SCH (08:59)
[2019-02-04] MEDS: CLOPIDOGREL 75MG TABLET PO SCH ×2 (08:59→18:16)
[2019-02-04] MEDS ORDERED: DILTIAZEM HCL 240 MG PO SCH (09:00)
[2019-02-04] MEDS: LIDOCAINE 5% PATCH TOP SCH (09:00)
[2019-02-04] MEDS ORDERED: MEDICATION NOT ON FORMULARY EA (Multivitamin (Multi Vitamin Daily) 1 TAB) MT SCH (09:00)
[2019-02-04] MEDS ORDERED: MEDICATION NOT ON FORMULARY EA (Sitagliptin Phosphate (Januvia) 100 MG) PO SCH (09:00)
[2019-02-04] MEDS: DILTIAZEM HCL 120MG CAPSULE CD 24HR PO SCH (09:00)
[2019-02-04] MEDS ORDERED: MEDICATION NOT ON FORMULARY EA (Ferrous Sulfate 1 TAB) MT SCH (09:00)
[2019-02-04] MEDS: INSULIN LISPRO 100 UNITS/ML SUBCUT SCH ×4 (09:08→21:11)
[2019-02-04] MEDS: INSULIN GLARGINE UD 100 UNITS/ML SYR SUBCUT SCH ×2 (10:39→21:12)
[2019-02-04] MEDS ORDERED: DIGOXIN 500MCG/2ML AMP IV NR (13:00)
[2019-02-04] MEDS ORDERED: SODIUM CHLORIDE 0.45% 1,000 ML IV SCH (17:15)
[2019-02-04] MEDS: MONTELUKAST SODIUM 10MG TABLET PO SCH (18:16)
[2019-02-04] MEDS: FLUCONAZOLE 100MG TABLET PO SCH (18:26)
[2019-02-04] MEDS: ATORVASTATIN CALCIUM 40MG TABLET PO SCH (20:59)
[2019-02-04] MEDS: ZOLPIDEM TARTRATE 5MG TABLET PO PRN (23:52)
[2019-02-05] VITALS (13 sets, daily range): BP systolic 122–148; BP diastolic 65–98
[2019-02-05] MEDS: IPRATROPIUM/ALBUTEROL 0.5-3(2.5)MG/3ML NEB NEB SCH ×4 (02:10→21:09)
[2019-02-05] MEDS: DIPHENHYDRAMINE 50MG/ML VIAL IV PRN ×5 (02:16→19:57)
[2019-02-05] MEDS: MORPHINE SULFATE 4 MG/ML CPJ (NOT FOR IM USE) IV PRN ×5 (02:17→19:56)
[2019-02-05] MEDS: PIPERACILLIN/TAZOBACTAM 3.375 G in DEXT 5% WATER 100 ML IV SCH ×4 (06:40→23:17)
[2019-02-05] MEDS: METHYLPREDNISOLONE SOD SUCC 40 MG/ML VIAL IV SCH ×3 (06:54→22:44)
[2019-02-05] MEDS: BLOOD SUGAR DIAGNOSTIC STRIP TEST SCH ×4 (07:30→20:26)
[2019-02-05] MEDS: BUDESONIDE 0.5MG/2ML NEB HHN SCH ×2 (08:36→21:08)
[2019-02-05 08:45] LABS: CHLORIDE 105 mEq/L (98-107)
[2019-02-05] MEDS: DULOXETINE HCL 30MG DR CAPSULE PO SCH (08:47)
[2019-02-05] MEDS: FERROUS SULFATE 325MG TABLET PO SCH ×2 (08:48→17:23)
[2019-02-05] MEDS: LINAGLIPTIN 5MG TABLET PO SCH (08:48)
[2019-02-05] MEDS: APIXABAN 5 MG TABLET PO SCH ×2 (08:48→17:22)
[2019-02-05] MEDS: MULTIVITAMINS,THER W-MINERALS TABLET PO SCH (08:48)
[2019-02-05] MEDS: DILTIAZEM HCL 120MG CAPSULE CD 24HR PO SCH (08:48)
[2019-02-05] MEDS: FLUCONAZOLE 100MG TABLET PO SCH (08:48)
[2019-02-05] MEDS: LOSARTAN POTASSIUM 50 MG TABLET PO SCH (08:48)
[2019-02-05] MEDS: CLOPIDOGREL 75MG TABLET PO SCH ×2 (08:48→17:23)
[2019-02-05] MEDS: LIDOCAINE 5% PATCH TOP SCH (08:50)
[2019-02-05] MEDS: INSULIN LISPRO 100 UNITS/ML SUBCUT SCH ×4 (08:57→20:46)
[2019-02-05] MEDS: INSULIN GLARGINE UD 100 UNITS/ML SYR SUBCUT SCH ×2 (10:40→22:42)
[2019-02-05] MEDS: SODIUM CHLORIDE 0.9% 1,000 ML IV SCH ×2 (11:35→22:43)
[2019-02-05] MEDS: GUAIFENESIN 200MG/10ML SUGAR FREE UDC PO PRN (13:41)
[2019-02-05] MEDS ORDERED: LOPERAMIDE HCL 2MG CAPSULE PO NR (15:30)
[2019-02-05] MEDS ORDERED: THROAT LOZENGES-BENZOCAINE/MENTH/CETYLPYRD CL LOZENGES MM PRN (16:00)
[2019-02-05] MEDS ORDERED: METRONIDAZOLE 500MG TABLET PO SCH (16:00)
[2019-02-05 16:06] LABS: HEMATOCRIT. 37.7 % (42.0-52.0); HEMOGLOBIN. 12.6 g/dL (14.0-18.0); MEAN CORPUSCULAR HEMOGLOBIN 31.7 pg (28.0-32.0); MEAN CORPUSCULAR VOLUME 94.8 fL (80.0-94.0); MEAN PLATELET VOLUME 8.8 fl (7.4-10.4); PLATELET 252 x1000/uL (130-400); RED BLOOD CELL COUNT 3.98 mill/uL (4.7-6.1); RED CELL DISTRIBUTION WIDTH 18.1 % (11.6-14.6)
[2019-02-05 16:10] LABS: CHLORIDE 104 mEq/L (98-107)
[2019-02-05] MEDS: MONTELUKAST SODIUM 10MG TABLET PO SCH (17:22)
[2019-02-05 18:04] LABS: PLATELET ESTIMATE NORMAL
[2019-02-05] MEDS: VANCOMYCIN HCL 1000 MG/20 ML ORAL PO SCH ×2 (18:10→23:18)
[2019-02-05 18:49] LABS: PROTHROMBIN TIME 10.7 sec (9.6-11.0)
[2019-02-05] MEDS: ATORVASTATIN CALCIUM 40MG TABLET PO SCH (20:26)
[2019-02-05] MEDS: ZOLPIDEM TARTRATE 5MG TABLET PO PRN (22:05)
[2019-02-05] MEDS: ONDANSETRON HCL 4MG/2ML INJ IV PRN (23:17)
[2019-02-06] VITALS (17 sets, daily range): BP systolic 115–158; BP diastolic 41–114
[2019-02-06] MEDS: DIPHENHYDRAMINE 50MG/ML VIAL IV PRN ×6 (00:03→22:08)
[2019-02-06] MEDS: MORPHINE SULFATE 4 MG/ML CPJ (NOT FOR IM USE) IV PRN ×6 (00:03→22:10)
[2019-02-06] MEDS: IPRATROPIUM/ALBUTEROL 0.5-3(2.5)MG/3ML NEB NEB SCH ×5 (01:26→20:27)
[2019-02-06] MEDS: PIPERACILLIN/TAZOBACTAM 3.375 G in DEXT 5% WATER 100 ML IV SCH ×3 (05:12→17:28)
[2019-02-06] MEDS: VANCOMYCIN HCL 1000 MG/20 ML ORAL PO SCH ×3 (05:13→17:29)
[2019-02-06] MEDS: BLOOD SUGAR DIAGNOSTIC STRIP TEST SCH ×4 (07:30→21:21)
[2019-02-06] MEDS: INSULIN LISPRO 100 UNITS/ML SUBCUT SCH ×4 (07:58→21:00)
[2019-02-06 08:31] LABS: HEMATOCRIT. 37.9 % (42.0-52.0); HEMOGLOBIN. 12.4 g/dL (14.0-18.0); MEAN CORPUSCULAR HEMOGLOBIN 31.2 pg (28.0-32.0); MEAN CORPUSCULAR VOLUME 95.1 fL (80.0-94.0); MEAN PLATELET VOLUME 9.3 fl (7.4-10.4); PLATELET 245 x1000/uL (130-400); RED BLOOD CELL COUNT 3.98 mill/uL (4.7-6.1); RED CELL DISTRIBUTION WIDTH 18.2 % (11.6-14.6)
[2019-02-06 09:01] LABS: CHLORIDE 104 mEq/L (98-107)
[2019-02-06] MEDS: SODIUM CHLORIDE 0.9% 1,000 ML IV SCH (09:01)
[2019-02-06] MEDS: LIDOCAINE 5% PATCH TOP SCH (09:03)
[2019-02-06] MEDS: FLUCONAZOLE 100MG TABLET PO SCH (09:04)
[2019-02-06] MEDS: LOSARTAN POTASSIUM 50 MG TABLET PO SCH (09:04)
[2019-02-06] MEDS: LINAGLIPTIN 5MG TABLET PO SCH (09:04)
[2019-02-06] MEDS: MULTIVITAMINS,THER W-MINERALS TABLET PO SCH (09:04)
[2019-02-06] MEDS: DILTIAZEM HCL 120MG CAPSULE CD 24HR PO SCH (09:04)
[2019-02-06] MEDS: METHYLPREDNISOLONE SOD SUCC 40 MG/ML VIAL IV SCH ×2 (09:04→21:07)
[2019-02-06] MEDS: APIXABAN 5 MG TABLET PO SCH ×2 (09:05→17:28)
[2019-02-06] MEDS: FERROUS SULFATE 325MG TABLET PO SCH ×2 (09:05→17:28)
[2019-02-06] MEDS: CLOPIDOGREL 75MG TABLET PO SCH ×2 (09:25→17:28)
[2019-02-06] MEDS: DULOXETINE HCL 30MG DR CAPSULE PO SCH (09:25)
[2019-02-06] MEDS: LOPERAMIDE HCL 2MG CAPSULE PO PRN (10:30)
[2019-02-06] MEDS: INSULIN GLARGINE UD 100 UNITS/ML SYR SUBCUT SCH ×2 (10:31→22:41)
[2019-02-06 12:11] LABS: PLATELET ESTIMATE NORMAL
[2019-02-06] MEDS: MONTELUKAST SODIUM 10MG TABLET PO SCH (17:28)
[2019-02-06] MEDS: BUDESONIDE 0.5MG/2ML NEB HHN SCH (20:28)
[2019-02-06] MEDS: ONDANSETRON HCL 4MG/2ML INJ IV PRN (21:07)
[2019-02-06] MEDS: ATORVASTATIN CALCIUM 40MG TABLET PO SCH (21:07)
[2019-02-06] MEDS: ZOLPIDEM TARTRATE 5MG TABLET PO PRN (22:08)
[2019-02-07] VITALS (11 sets, daily range): BP systolic 125–169; BP diastolic 65–105
[2019-02-07] MEDS: PIPERACILLIN/TAZOBACTAM 3.375 G in DEXT 5% WATER 100 ML IV SCH ×3 (00:20→12:17)
[2019-02-07] MEDS: VANCOMYCIN HCL 1000 MG/20 ML ORAL PO SCH ×5 (00:30→22:57)
[2019-02-07] MEDS: ONDANSETRON HCL 4MG/2ML INJ IV PRN ×4 (00:40→21:14)
[2019-02-07] MEDS: IPRATROPIUM/ALBUTEROL 0.5-3(2.5)MG/3ML NEB NEB SCH ×3 (02:00→20:37)
[2019-02-07] MEDS: MORPHINE SULFATE 4 MG/ML CPJ (NOT FOR IM USE) IV PRN ×6 (02:40→22:58)
[2019-02-07] MEDS: DIPHENHYDRAMINE 50MG/ML VIAL IV PRN ×4 (06:02→18:02)
[2019-02-07 07:16] LABS: HEMATOCRIT 37.5 % (42.0-52.0); HEMOGLOBIN 12.4 g/dL (14.0-18.0); MEAN CORPUSCULAR HEMOGLOBIN 31.3 pg (28.0-32.0); MEAN CORPUSCULAR VOLUME 94.8 fL (80.0-94.0); PLATELET 223 x1000/uL (130-400); RED BLOOD CELL COUNT 3.96 mill/uL (4.7-6.1); RED CELL DISTRIBUTION WIDTH 18.1 % (11.6-14.6)
[2019-02-07] MEDS: BLOOD SUGAR DIAGNOSTIC STRIP TEST SCH ×4 (07:34→21:08)
[2019-02-07 07:38] LABS: CHLORIDE 103 mEq/L (98-107)
[2019-02-07] MEDS: BUDESONIDE 0.5MG/2ML NEB HHN SCH ×2 (07:53→20:40)
[2019-02-07] MEDS: DILTIAZEM HCL 120MG CAPSULE CD 24HR PO SCH (08:56)
[2019-02-07] MEDS: LIDOCAINE 5% PATCH TOP SCH (08:56)
[2019-02-07] MEDS: FLUCONAZOLE 100MG TABLET PO SCH (08:56)
[2019-02-07] MEDS: METHYLPREDNISOLONE SOD SUCC 40 MG/ML VIAL IV SCH ×2 (08:56→21:05)
[2019-02-07] MEDS: FERROUS SULFATE 325MG TABLET PO SCH ×2 (08:57→18:02)
[2019-02-07] MEDS: APIXABAN 5 MG TABLET PO SCH ×2 (08:57→16:10)
[2019-02-07] MEDS: CLOPIDOGREL 75MG TABLET PO SCH ×2 (08:57→16:10)
[2019-02-07] MEDS: LOSARTAN POTASSIUM 50 MG TABLET PO SCH (08:57)
[2019-02-07] MEDS: DULOXETINE HCL 30MG DR CAPSULE PO SCH (08:57)
[2019-02-07] MEDS: MULTIVITAMINS,THER W-MINERALS TABLET PO SCH (08:57)
[2019-02-07] MEDS: LINAGLIPTIN 5MG TABLET PO SCH (08:57)
[2019-02-07] MEDS: INSULIN LISPRO 100 UNITS/ML SUBCUT SCH ×4 (08:59→21:11)
[2019-02-07] MEDS: INSULIN GLARGINE UD 100 UNITS/ML SYR SUBCUT SCH ×2 (10:21→22:58)
[2019-02-07] MEDS: LEVOFLOXACIN 500MG TABLET PO SCH (16:10)
[2019-02-07] MEDS: MONTELUKAST SODIUM 10MG TABLET PO SCH (16:10)
[2019-02-07] MEDS: METRONIDAZOLE 500MG TABLET PO SCH ×2 (16:10→22:59)
[2019-02-07 17:07] LABS: HEPATITIS B SURFACE ANTIGEN NEGATIVE
[2019-02-07 17:36] LABS: HEPATITIS A AB IGM NEGATIVE (NEGATIVE)
[2019-02-07] MEDS: HEMORRHOIDAL SUPP PR SCH (21:00)
[2019-02-07] MEDS: ATORVASTATIN CALCIUM 40MG TABLET PO SCH (21:07)
[2019-02-07] MEDS: ASCORBIC ACID 250 MG TABLET PO SCH (21:08)
[2019-02-07] MEDS: ZOLPIDEM TARTRATE 5MG TABLET PO PRN (23:53)
[2019-02-08] VITALS (7 sets, daily range): BP systolic 119–158; BP diastolic 75–89
[2019-02-08] MEDS: IPRATROPIUM/ALBUTEROL 0.5-3(2.5)MG/3ML NEB NEB SCH ×4 (02:00→21:04)
[2019-02-08] MEDS: ONDANSETRON HCL 4MG/2ML INJ IV PRN ×3 (03:08→20:08)
[2019-02-08] MEDS: DIPHENHYDRAMINE 50MG/ML VIAL IV PRN ×3 (03:08→20:08)
[2019-02-08] MEDS: MAGNESIUM/ALUMINUM HYDROXIDE/SIMETHICONE 30ML UDC PO PRN (05:29)
[2019-02-08] MEDS: METRONIDAZOLE 500MG TABLET PO SCH ×3 (05:31→22:09)
[2019-02-08] MEDS: VANCOMYCIN HCL 1000 MG/20 ML ORAL PO SCH ×3 (05:32→17:22)
[2019-02-08 07:36] LABS: HEMATOCRIT 38.3 % (42.0-52.0); HEMOGLOBIN 12.8 g/dL (14.0-18.0); MEAN CORPUSCULAR HEMOGLOBIN 31.5 pg (28.0-32.0); MEAN CORPUSCULAR VOLUME 94.5 fL (80.0-94.0); PLATELET 222 x1000/uL (130-400); RED BLOOD CELL COUNT 4.05 mill/uL (4.7-6.1); RED CELL DISTRIBUTION WIDTH 17.6 % (11.6-14.6)
[2019-02-08] MEDS: BUDESONIDE 0.5MG/2ML NEB HHN SCH ×2 (07:42→21:04)
[2019-02-08 07:57] LABS: CHLORIDE 102 mEq/L (98-107)
[2019-02-08] MEDS: FERROUS SULFATE 325MG TABLET PO SCH ×3 (08:00→17:22)
[2019-02-08] MEDS: BLOOD SUGAR DIAGNOSTIC STRIP TEST SCH ×4 (08:26→21:00)
[2019-02-08] MEDS: LINAGLIPTIN 5MG TABLET PO SCH (09:00)
[2019-02-08] MEDS: LOSARTAN POTASSIUM 50 MG TABLET PO SCH (09:00)
[2019-02-08] MEDS: MULTIVITAMINS,THER W-MINERALS TABLET PO SCH (09:00)
[2019-02-08] MEDS: HEMORRHOIDAL SUPP PR SCH ×2 (09:00→21:00)
[2019-02-08] MEDS: CLOPIDOGREL 75MG TABLET PO SCH ×2 (09:00→16:07)
[2019-02-08] MEDS: ASCORBIC ACID 250 MG TABLET PO SCH ×2 (09:00→22:09)
[2019-02-08] MEDS: APIXABAN 5 MG TABLET PO SCH ×2 (09:00→16:07)
[2019-02-08] MEDS: DILTIAZEM HCL 120MG CAPSULE CD 24HR PO SCH (09:00)
[2019-02-08] MEDS: METHYLPREDNISOLONE SOD SUCC 40 MG/ML VIAL IV SCH (09:00)
[2019-02-08] MEDS: DULOXETINE HCL 30MG DR CAPSULE PO SCH (09:00)
[2019-02-08] MEDS: INSULIN LISPRO 100 UNITS/ML SUBCUT SCH ×4 (11:03→22:11)
[2019-02-08] MEDS: LIDOCAINE 5% PATCH TOP SCH (11:11)
[2019-02-08] MEDS: LEVOFLOXACIN 500MG TABLET PO SCH (11:11)
[2019-02-08] MEDS: INSULIN GLARGINE UD 100 UNITS/ML SYR SUBCUT SCH ×2 (11:12→22:11)
[2019-02-08] MEDS: HYDROCODONE/ACETAMINOPHEN 5/325MG TABLET PO PRN ×2 (16:07→22:09)
[2019-02-08] MEDS: MONTELUKAST SODIUM 10MG TABLET PO SCH (16:07)
[2019-02-08] MEDS: ATORVASTATIN CALCIUM 40MG TABLET PO SCH (22:09)
[2019-02-08] MEDS ORDERED: ZOLPIDEM TARTRATE 5MG TABLET PO PRN (22:15)
[2019-02-09] VITALS (8 sets, daily range): BP systolic 107–147; BP diastolic 59–96
[2019-02-09] MEDS: IPRATROPIUM/ALBUTEROL 0.5-3(2.5)MG/3ML NEB NEB SCH ×3 (00:18→14:00)
[2019-02-09] MEDS: VANCOMYCIN HCL 1000 MG/20 ML ORAL PO SCH ×3 (00:25→12:27)
[2019-02-09] MEDS: DIPHENHYDRAMINE 50MG/ML VIAL IV PRN ×3 (00:25→09:47)
[2019-02-09] MEDS: ONDANSETRON HCL 4MG/2ML INJ IV PRN ×2 (01:35→08:21)
[2019-02-09] MEDS: METRONIDAZOLE 500MG TABLET PO SCH (06:09)
[2019-02-09] MEDS: HYDROCODONE/ACETAMINOPHEN 5/325MG TABLET PO PRN (06:09)
[2019-02-09] MEDS: BLOOD SUGAR DIAGNOSTIC STRIP TEST SCH ×2 (07:30→12:33)
[2019-02-09] MEDS: HEMORRHOIDAL SUPP PR SCH (09:00)
[2019-02-09] MEDS ORDERED: PREDNISONE 20MG TABLET PO SCH (09:00)
[2019-02-09] MEDS: BUDESONIDE 0.5MG/2ML NEB HHN SCH (09:16)
[2019-02-09] MEDS: MAGNESIUM/ALUMINUM HYDROXIDE/SIMETHICONE 30ML UDC PO PRN (09:32)
[2019-02-09] MEDS: DILTIAZEM HCL 120MG CAPSULE CD 24HR PO SCH (09:34)
[2019-02-09] MEDS: APIXABAN 5 MG TABLET PO SCH (09:34)
[2019-02-09] MEDS: ASCORBIC ACID 250 MG TABLET PO SCH (09:34)
[2019-02-09] MEDS: LOPERAMIDE HCL 2MG CAPSULE PO PRN (09:35)
[2019-02-09] MEDS: LOSARTAN POTASSIUM 50 MG TABLET PO SCH (09:35)
[2019-02-09] MEDS: FERROUS SULFATE 325MG TABLET PO SCH ×2 (09:35→13:42)
[2019-02-09] MEDS: MULTIVITAMINS,THER W-MINERALS TABLET PO SCH (09:35)
[2019-02-09] MEDS: DULOXETINE HCL 30MG DR CAPSULE PO SCH (09:35)
[2019-02-09] MEDS: INSULIN LISPRO 100 UNITS/ML SUBCUT SCH ×2 (09:37→12:33)
[2019-02-09] MEDS: LINAGLIPTIN 5MG TABLET PO SCH (09:47)
[2019-02-09] MEDS: CLOPIDOGREL 75MG TABLET PO SCH (09:47)
[2019-02-09] MEDS: LIDOCAINE 5% PATCH TOP SCH (10:12)
[2019-02-09] MEDS: INSULIN GLARGINE UD 100 UNITS/ML SYR SUBCUT SCH (10:19)
[2019-02-09] MEDS: LEVOFLOXACIN 500MG TABLET PO SCH (10:41)
[2019-02-09 13:04] LABS: TOTAL IRON BINDING CAPACITY 369 ug/dL (250-450)
[2019-02-09 17:06] LABS: OVA & PARASITE EXAM Final report (.)
== END 2019-02-09 13:50 | disposition home or self-care (01) | DRG 193 ==
LOC: ER 20:04 → EDBEDREQSVC 21:18 → EDBEDREQ 21:18 → 5EST 22:42 → EDBEDREQ 22:47 → EDBEDREQTM 22:47 → ENRESERV 02-03 08:31
PROVIDERS: ADMIT Internal Medicine; ATTEND Internal Medicine
PROC: 5A09357 Assistance with Respiratory Ventilation, Less than 24 Consecutive Hours, Continuous Positive Airway Pressure (ICD-10-PCS; principal; 2019-02-02)
PROC: 5A09357 Assistance with Respiratory Ventilation, Less than 24 Consecutive Hours, Continuous Positive Airway Pressure (ICD-10-PCS; 2019-02-03)
PROC: 5A09357 Assistance with Respiratory Ventilation, Less than 24 Consecutive Hours, Continuous Positive Airway Pressure (ICD-10-PCS; 2019-02-04)
PROC: 5A09357 Assistance with Respiratory Ventilation, Less than 24 Consecutive Hours, Continuous Positive Airway Pressure (ICD-10-PCS; 2019-02-05)
DX: J18.9 Pneumonia, unspecified organism (principal); J96.20 Acute and chronic respiratory failure, unspecified whether with hypoxia or hypercapnia; J45.901 Unspecified asthma with (acute) exacerbation; Z68.41 Body mass index [BMI] 40.0-44.9, adult; R65.10 Systemic inflammatory response syndrome (SIRS) of non-infectious origin without acute organ dysfunction; G47.33 Obstructive sleep apnea (adult) (pediatric); E87.5 Hyperkalemia; E78.5 Hyperlipidemia, unspecified; G89.29 Other chronic pain; K64.9 Unspecified hemorrhoids; I10 Essential (primary) hypertension; E66.9 Obesity, unspecified; E09.65 Drug or chemical induced diabetes mellitus with hyperglycemia; K64.8 Other hemorrhoids; K21.9 Gastro-esophageal reflux disease without esophagitis; K46.9 Unspecified abdominal hernia without obstruction or gangrene; A08.4 Viral intestinal infection, unspecified; M17.12 Unilateral primary osteoarthritis, left knee; M17.11 Unilateral primary osteoarthritis, right knee; B37.9 Candidiasis, unspecified; F41.9 Anxiety disorder, unspecified; I25.10 Atherosclerotic heart disease of native coronary artery without angina pectoris; K57.30 Diverticulosis of large intestine without perforation or abscess without bleeding; M54.9 Dorsalgia, unspecified; Z95.5 Presence of coronary angioplasty implant and graft; Z90.81 Acquired absence of spleen; Z88.8 Allergy status to other drugs, medicaments and biological substances; Z88.6 Allergy status to analgesic agent; Z91.018 Allergy to other foods; I25.2 Old myocardial infarction
CPT/HCPCS: 36415; 36600; 71045; 74176; 80048; 80053; 80061; 82270; 82375; 82805; 82962; 83540; 83550; 83880; 84466; 84484; 85025; 85027; 86705; 86709; 86803; 87015; 87045; 87177; 87209; 87340; 87427; 87449; 87493; 93005; 94640; 94660; 96374; 96375; 96376; 97162; 99291; J1200; J1815; J1885; J2270; J2405; J2543; J2920; J2930; J3370; J7030; J7060; J7512; J7611; J7620; J7626

== ENCOUNTER 2019-03-31 16:48 | Inpatient (IN) | payer OTHER ==
[~2019-03-31] VITALS: Ht 160 cm; Wt 118.4 kg
[~2019-03-31 16:48] MED LIST changes: -DILT-2 PO; +DILT240C96 PO; +OMEP40CA12 PO; -OMEP40CA34 PO
[2019-03-31] MEDS ORDERED: DILTIAZEM HCL 5MG/ML 5ML VIAL IV ONE (17:15)
[2019-03-31] MEDS ORDERED: METHYLPREDNISOLONE SOD SUCC 125 MG/2 ML VIAL IV STA (17:25)
[2019-03-31] MEDS ORDERED: IPRATROPIUM BROMIDE (0.02%) 0.5MG/2.5ML NEB HHN STA (17:25)
[2019-03-31] MEDS ORDERED: MAGNESIUM 2 G PREMIX 50 ML IV STA (17:25)
[2019-03-31] MEDS ORDERED: ONDANSETRON HCL 4MG/2ML INJ IV STA (17:34)
[2019-03-31] MEDS ORDERED: MORPHINE SULFATE 4 MG/ML CPJ (NOT FOR IM USE) IV STA (17:34)
[2019-03-31] MEDS ORDERED: NITROGLYCERIN OINT 1GM/INCH UDPKT TD ONE (17:45)
[2019-03-31] MEDS ORDERED: DILTIAZEM HCL 125 MG in DEXT 5% WATER 100 ML IV ONE (17:45)
[2019-03-31] MEDS ORDERED: DILTIAZEM HCL 5MG/ML 10ML VIAL IV NR (17:49)
[2019-03-31 17:50] LABS: HEMATOCRIT. 49.1 % (42.0-52.0); HEMOGLOBIN. 15.9 g/dL (14.0-18.0); MEAN CORPUSCULAR HEMOGLOBIN 31.7 pg (28.0-32.0); MEAN CORPUSCULAR VOLUME 97.8 fL (80.0-94.0); MEAN PLATELET VOLUME 8.7 fl (7.4-10.4); PLATELET 289 x1000/uL (130-400); RED BLOOD CELL COUNT 5.02 mill/uL (4.7-6.1); RED CELL DISTRIBUTION WIDTH 17.4 % (11.6-14.6)
[2019-03-31 18:00] LABS: PARTIAL THROMBOPLASTIN TIME 24.3 sec (23.4-31.0); PROTHROMBIN TIME 9.9 sec (9.6-11.0)
[2019-03-31] MEDS ORDERED: DILTIAZEM HCL 125 MG in DEXT 5% WATER 100 ML IV NR (18:00)
[2019-03-31] MEDS ORDERED: DIPHENHYDRAMINE 50MG/ML VIAL IV ONE (18:00)
[2019-03-31 18:12] LABS: PLATELET ESTIMATE NORMAL
[2019-03-31] MEDS ORDERED: ONDANSETRON HCL 4MG/2ML INJ IV ONE (18:15)
[2019-03-31 18:53] LABS: BG BASE EXCESS 1.8 mmol/L (-2.0-2.0); BG CARBOXYHEMOGLOBIN 0.2 % (0.5-1.5); BG DEOXYHEMOGLOBIN 3.6 % (0.0-5.0); BG FRACTION INSPIRED OXYGEN 28; BG HCO3 ACT 26.6 mmol/L (22.0-26.0); BG METHEMOGLOBIN 0.1 % (0.0-1.5); BG OXYGEN SATURATION 96.4 % (92.0-98.5); BG OXYHEMOGLOBIN 96.1 % (94.0-97.0); BG PCO2 42.1 mmHg (35.0-45.0); BG PH 7.418 (7.350-7.450); BG PO2 83.3 mmHg (75.0-100.0); BG SAMPLE SITE RIGHT RADIAL; BG TOTAL HEMOGLOBIN 14.9 g/dL (12.0-18.0); BG VENT MODE NASAL CANNULA
[2019-03-31 19:25] LABS: CHLORIDE 107 mEq/L (98-107)
[2019-04-01] VITALS (12 sets, daily range): BP systolic 122–165; BP diastolic 71–105
[2019-04-01] MEDS: MORPHINE SULFATE 4 MG/ML CPJ (NOT FOR IM USE) IV PRN ×4 (00:40→17:52)
[2019-04-01] MEDS ORDERED: DEXTROSE 50% WATER 50ML SYRINGE IV PRN (02:45)
[2019-04-01] MEDS: ONDANSETRON HCL 4MG/2ML INJ IV PRN ×2 (02:57→09:16)
[2019-04-01] MEDS ORDERED: NITROGLYCERIN 0.4MG TABLET SL SL PRN (03:00)
[2019-04-01] MEDS: IPRATROPIUM/ALBUTEROL 0.5-3(2.5)MG/3ML NEB HHN SCH ×5 (04:27→20:05)
[2019-04-01] MEDS: DIPHENHYDRAMINE 50MG/ML VIAL IV PRN ×3 (04:45→18:59)
[2019-04-01] MEDS: METHYLPREDNISOLONE SOD SUCC 40 MG/ML VIAL IV SCH ×3 (04:46→21:18)
[2019-04-01] MEDS: BLOOD SUGAR DIAGNOSTIC STRIP TEST SCH ×4 (07:34→20:56)
[2019-04-01] MEDS: LOSARTAN POTASSIUM 50 MG TABLET PO SCH (08:15)
[2019-04-01] MEDS: APIXABAN 5 MG TABLET PO SCH ×2 (08:15→17:45)
[2019-04-01] MEDS: PANTOPRAZOLE SODIUM 40 MG/VIAL IV SCH (08:16)
[2019-04-01] MEDS: INSULIN LISPRO 100 UNITS/ML SUBCUT SCH ×4 (08:17→21:18)
[2019-04-01 08:53] LABS: HEMATOCRIT. 44.8 % (42.0-52.0); HEMOGLOBIN. 14.6 g/dL (14.0-18.0); MEAN CORPUSCULAR HEMOGLOBIN 31.7 pg (28.0-32.0); MEAN CORPUSCULAR VOLUME 97.1 fL (80.0-94.0); MEAN PLATELET VOLUME 8.5 fl (7.4-10.4); PLATELET 275 x1000/uL (130-400); RED BLOOD CELL COUNT 4.61 mill/uL (4.7-6.1)
[2019-04-01] MEDS ORDERED: CLOPIDOGREL 75MG TABLET PO SCH ×2 (09:00)
[2019-04-01] MEDS ORDERED: DILTIAZEM HCL 180MG CAPSULE CD 24HR PO SCH (09:00)
[2019-04-01 09:19] LABS: CHLORIDE 106 mEq/L (98-107)
[2019-04-01 12:34] LABS: PLATELET ESTIMATE NORMAL
[2019-04-01] MEDS ORDERED: INSULIN GLARGINE UD 100 UNITS/ML SYR SUBCUT NR (17:30)
[2019-04-01] MEDS: CLOPIDOGREL 75MG TABLET PO SCH (17:45)
[2019-04-01] MEDS: DULOXETINE HCL 30MG DR CAPSULE PO SCH (17:45)
[2019-04-01] MEDS: NITROGLYCERIN OINT 1GM/INCH UDPKT TD SCH (17:48)
[2019-04-01] MEDS: ALPRAZOLAM 0.5 MG TABLET PO PRN (18:58)
[2019-04-01] MEDS: PIPERACILLIN/TAZOBACTAM 3.375 G in DEXT 5% WATER 100 ML IV SCH (18:59)
[2019-04-01] MEDS: ATORVASTATIN CALCIUM 20MG TABLET PO SCH (20:55)
[2019-04-01] MEDS: DILTIAZEM HCL 180MG CAPSULE CD 24HR PO SCH (20:55)
[2019-04-01 21:02] LABS: CLARITY URINE CLEAR (CLEAR); COLOR URINE YELLOW (YELLOW); KETONES URINE NEGATIVE (NEGATIVE); LEUKOCYTE ESTERASE URINE NEGATIVE (NEGATIVE); NITRITE URINE NEGATIVE (NEGATIVE); OCCULT BLOOD URINE TRACE (NEGATIVE); PROTEIN URINE NEGATIVE (NEGATIVE); SPECIFIC GRAVITY URINE 1.043 (1.005-1.030); UROBILINOGEN URINE 0.2 E.U./dL (0.2-1.0)
[2019-04-01] MEDS: INSULIN GLARGINE UD 100 UNITS/ML SYR SUBCUT SCH (22:01)
[2019-04-02] VITALS (12 sets, daily range): BP systolic 105–134; BP diastolic 62–82
[2019-04-02] MEDS: NITROGLYCERIN OINT 1GM/INCH UDPKT TD SCH ×5 (00:05→23:51)
[2019-04-02] MEDS: PIPERACILLIN/TAZOBACTAM 3.375 G in DEXT 5% WATER 100 ML IV SCH ×5 (00:05→23:50)
[2019-04-02] MEDS: IPRATROPIUM/ALBUTEROL 0.5-3(2.5)MG/3ML NEB HHN SCH ×6 (00:15→21:13)
[2019-04-02] MEDS: ONDANSETRON HCL 4MG/2ML INJ IV PRN ×3 (00:37→14:57)
[2019-04-02] MEDS: MORPHINE SULFATE 4 MG/ML CPJ (NOT FOR IM USE) IV PRN ×4 (00:38→21:41)
[2019-04-02] MEDS: DIPHENHYDRAMINE 50MG/ML VIAL IV PRN ×4 (00:41→21:40)
[2019-04-02] MEDS: ALPRAZOLAM 0.5 MG TABLET PO PRN ×3 (04:08→21:40)
[2019-04-02] MEDS: METHYLPREDNISOLONE SOD SUCC 40 MG/ML VIAL IV SCH ×3 (06:00→21:20)
[2019-04-02] MEDS: BLOOD SUGAR DIAGNOSTIC STRIP TEST SCH ×4 (07:28→21:00)
[2019-04-02] MEDS: PANTOPRAZOLE SODIUM 40 MG/VIAL IV SCH (08:33)
[2019-04-02] MEDS: APIXABAN 5 MG TABLET PO SCH ×2 (08:34→17:57)
[2019-04-02] MEDS: DULOXETINE HCL 30MG DR CAPSULE PO SCH (08:34)
[2019-04-02] MEDS: DILTIAZEM HCL 180MG CAPSULE CD 24HR PO SCH ×2 (08:34→21:21)
[2019-04-02] MEDS: LOSARTAN POTASSIUM 50 MG TABLET PO SCH (08:34)
[2019-04-02] MEDS: CLOPIDOGREL 75MG TABLET PO SCH ×2 (08:34→17:57)
[2019-04-02] MEDS: INSULIN LISPRO 100 UNITS/ML SUBCUT SCH ×4 (08:35→21:40)
[2019-04-02 09:52] LABS: HEMATOCRIT 40.8 % (42.0-52.0); HEMOGLOBIN 13.4 g/dL (14.0-18.0); MEAN CORPUSCULAR HEMOGLOBIN 32.2 pg (28.0-32.0); MEAN CORPUSCULAR VOLUME 98.3 fL (80.0-94.0); PLATELET 250 x1000/uL (130-400); RED BLOOD CELL COUNT 4.15 mill/uL (4.7-6.1); RED CELL DISTRIBUTION WIDTH 17.1 % (11.6-14.6)
[2019-04-02 10:11] LABS: CHLORIDE 106 mEq/L (98-107)
[2019-04-02] MEDS ORDERED: INSULIN GLARGINE UD 100 UNITS/ML SYR SUBCUT NR (12:00)
[2019-04-02] MEDS: ATORVASTATIN CALCIUM 20MG TABLET PO SCH (21:20)
[2019-04-02] MEDS: INSULIN GLARGINE UD 100 UNITS/ML SYR SUBCUT SCH (21:42)
[2019-04-03] VITALS (9 sets, daily range): BP systolic 113–134; BP diastolic 38–81
[2019-04-03] MEDS: IPRATROPIUM/ALBUTEROL 0.5-3(2.5)MG/3ML NEB HHN SCH ×3 (01:41→09:10)
[2019-04-03] MEDS: DIPHENHYDRAMINE 50MG/ML VIAL IV PRN (04:17)
[2019-04-03] MEDS: MORPHINE SULFATE 4 MG/ML CPJ (NOT FOR IM USE) IV PRN (04:18)
[2019-04-03] MEDS: PIPERACILLIN/TAZOBACTAM 3.375 G in DEXT 5% WATER 100 ML IV SCH ×2 (05:16→11:13)
[2019-04-03] MEDS: METHYLPREDNISOLONE SOD SUCC 40 MG/ML VIAL IV SCH ×2 (05:17→14:00)
[2019-04-03] MEDS: NITROGLYCERIN OINT 1GM/INCH UDPKT TD SCH (05:24)
[2019-04-03] MEDS: BLOOD SUGAR DIAGNOSTIC STRIP TEST SCH ×2 (07:53→12:30)
[2019-04-03] MEDS ORDERED: FAMOTIDINE 20MG/2ML VIAL IV SCH (09:00)
[2019-04-03] MEDS: CLOPIDOGREL 75MG TABLET PO SCH (09:21)
[2019-04-03] MEDS: DULOXETINE HCL 30MG DR CAPSULE PO SCH (09:22)
[2019-04-03] MEDS: ALPRAZOLAM 0.5 MG TABLET PO PRN (09:22)
[2019-04-03] MEDS: ONDANSETRON HCL 4MG/2ML INJ IV PRN (09:22)
[2019-04-03] MEDS: LOSARTAN POTASSIUM 50 MG TABLET PO SCH (09:22)
[2019-04-03] MEDS: INSULIN LISPRO 100 UNITS/ML SUBCUT SCH ×2 (09:23→14:05)
[2019-04-03] MEDS: APIXABAN 5 MG TABLET PO SCH (09:23)
[2019-04-03] MEDS: DILTIAZEM HCL 180MG CAPSULE CD 24HR PO SCH (09:24)
[2019-04-03] MEDS ORDERED: INSULIN GLARGINE UD 100 UNITS/ML SYR SUBCUT SCH ×3 (10:00→22:00)
== END 2019-04-03 15:37 | disposition home or self-care (01) | DRG 193 ==
LOC: EDBEDREQ 17:55 → ER 18:52 → ENRESERV 04-01 00:09 → 5EST 04-01 01:23
PROVIDERS: ADMIT Internal Medicine; ATTEND Internal Medicine
PROC: 5A09357 Assistance with Respiratory Ventilation, Less than 24 Consecutive Hours, Continuous Positive Airway Pressure (ICD-10-PCS; principal; 2019-04-01)
DX: J11.00 Influenza due to unidentified influenza virus with unspecified type of pneumonia (principal); J96.00 Acute respiratory failure, unspecified whether with hypoxia or hypercapnia; J45.901 Unspecified asthma with (acute) exacerbation; J44.1 Chronic obstructive pulmonary disease with (acute) exacerbation; Z68.42 Body mass index [BMI] 45.0-49.9, adult; J44.0 Chronic obstructive pulmonary disease with (acute) lower respiratory infection; E11.9 Type 2 diabetes mellitus without complications; E66.01 Morbid (severe) obesity due to excess calories; E78.5 Hyperlipidemia, unspecified; F41.9 Anxiety disorder, unspecified; G47.33 Obstructive sleep apnea (adult) (pediatric); G89.29 Other chronic pain; I25.10 Atherosclerotic heart disease of native coronary artery without angina pectoris; I48.91 Unspecified atrial fibrillation; I11.9 Hypertensive heart disease without heart failure; K64.9 Unspecified hemorrhoids; K46.9 Unspecified abdominal hernia without obstruction or gangrene; D72.829 Elevated white blood cell count, unspecified; M19.90 Unspecified osteoarthritis, unspecified site; T38.0X5A Adverse effect of glucocorticoids and synthetic analogues, initial encounter; K57.90 Diverticulosis of intestine, part unspecified, without perforation or abscess without bleeding; Z79.01 Long term (current) use of anticoagulants; Z79.02 Long term (current) use of antithrombotics/antiplatelets; I25.2 Old myocardial infarction; Z86.74 Personal history of sudden cardiac arrest; Z88.6 Allergy status to analgesic agent; Z95.5 Presence of coronary angioplasty implant and graft; Z88.8 Allergy status to other drugs, medicaments and biological substances; Z79.899 Other long term (current) drug therapy; Z90.49 Acquired absence of other specified parts of digestive tract; Y92.89 Other specified places as the place of occurrence of the external cause
CPT/HCPCS: 36415; 36600; 71045; 80048; 80053; 81003; 82375; 82805; 82962; 83735; 83880; 84443; 84484; 85025; 85027; 87804; 93005; 94640; 94660; 96365; 96375; 96376; 99291; C9113; J1200; J1815; J2270; J2405; J2543; J2920; J2930; J3475; J3490; J7060; J7620

== ENCOUNTER 2019-04-14 10:55 | Inpatient (IN) | payer OTHER ==
[~2019-04-14] VITALS: Ht 167.6 cm; Wt 119.9 kg
[~2019-04-14 10:55] MED LIST changes: -PRED10TA PO
[2019-04-14] MEDS ORDERED: ALBUTEROL (0.083%) 2.5MG/3ML NEB HHN STA (11:23)
[2019-04-14] MEDS ORDERED: IPRATROPIUM BROMIDE (0.02%) 0.5MG/2.5ML NEB HHN STA (11:23)
[2019-04-14] MEDS ORDERED: PREDNISONE 20MG TABLET PO STA (11:23)
[2019-04-14] MEDS ORDERED: SODIUM CHLORIDE 0.9% 1,000 ML IV ONE ×3 (11:30→13:45)
[2019-04-14] MEDS ORDERED: BLOOD SUGAR DIAGNOSTIC STRIP TEST ONE (11:30)
[2019-04-14] MEDS ORDERED: METHYLPREDNISOLONE SOD SUCC 125 MG/2 ML VIAL IV ONE (11:30)
[2019-04-14] MEDS ORDERED: MAGNESIUM 2 G PREMIX 50 ML IV ONE (11:45)
[2019-04-14 11:56] LABS: HEMATOCRIT. 45.7 % (42.0-52.0); HEMOGLOBIN. 15.2 g/dL (14.0-18.0); MEAN CORPUSCULAR HEMOGLOBIN 32.6 pg (28.0-32.0); MEAN CORPUSCULAR VOLUME 98.2 fL (80.0-94.0); PLATELET 246 x1000/uL (130-400); RED BLOOD CELL COUNT 4.65 mill/uL (4.7-6.1); RED CELL DISTRIBUTION WIDTH 16.3 % (11.6-14.6)
[2019-04-14 12:02] LABS: CHLORIDE 100 mEq/L (98-107)
[2019-04-14 12:09] LABS: BG BASE EXCESS 4.1 mmol/L (-2.0-2.0); BG CARBOXYHEMOGLOBIN 0.7 % (0.5-1.5); BG DEOXYHEMOGLOBIN 1.1 % (0.0-5.0); BG FRACTION INSPIRED OXYGEN 60; BG HCO3 ACT 27.2 mmol/L (22.0-26.0); BG METHEMOGLOBIN 0.3 % (0.0-1.5); BG OXYGEN SATURATION 98.9 % (92.0-98.5); BG OXYHEMOGLOBIN 97.9 % (94.0-97.0); BG PCO2 35.9 mmHg (35.0-45.0); BG PH 7.497 (7.350-7.450); BG PO2 145.2 mmHg (75.0-100.0); BG SAMPLE SITE RIGHT RADIAL; BG TOTAL HEMOGLOBIN 14.7 g/dL (12.0-18.0); BG VENT MODE MASK - AEROSOL
[2019-04-14] MEDS ORDERED: FENTANYL CITRATE/PF 50MCG/ML 2ML VIAL IV ONE (13:45)
[2019-04-14 14:47] LABS: PLATELET ESTIMATE NORMAL
[2019-04-14] MEDS ORDERED: AZITHROMYCIN 500 MG in DEXT 5% WATER 250 ML IV SCH (17:45)
[2019-04-14] MEDS ORDERED: CEFTRIAXONE 1 G PREMIX 50 ML IV ONE (17:45)
[2019-04-14] MEDS ORDERED: HYDROCORTISONE SOD SUCCINATE 100 MG/2 ML VIAL IV ONE (17:45)
[2019-04-14] MEDS: ONDANSETRON HCL 4MG/2ML INJ IV PRN (18:27)
[2019-04-14] MEDS ORDERED: APIXABAN 5 MG TABLET PO NR (20:00)
[2019-04-14] MEDS ORDERED: CLOPIDOGREL 75MG TABLET PO NR (20:00)
[2019-04-14] MEDS ORDERED: NOREPINEPHRINE 4MG/250ML PMX 250 ML IV PRN (20:45)
[2019-04-14] MEDS ORDERED: LORAZEPAM 1MG TABLET PO SCH (21:00)
[2019-04-14] MEDS ORDERED: SODIUM CHLORIDE 0.9% 250 ML IV SCH (21:30)
[2019-04-14] MEDS ORDERED: IOHEXOL-300 100 ML BOTTLE ONE (22:57)
[2019-04-14] MEDS ORDERED: IOHEXOL-350 100 ML BOTTLE ONE (23:00)
[2019-04-15] VITALS (52 sets, daily range): BP systolic 73–158; BP diastolic 36–99
[2019-04-15] MEDS ORDERED: NOREPINEPHRINE 4 MG in DEXTROSE 5% WATER 250 ML IV PRN (03:45)
[2019-04-15] MEDS ORDERED: DEXTROSE 50% WATER 50ML SYRINGE IV PRN (03:45)
[2019-04-15] MEDS: MORPHINE SULFATE 4 MG/ML CPJ (NOT FOR IM USE) IV PRN ×5 (04:41→20:52)
[2019-04-15] MEDS: SODIUM CHLORIDE 0.45% 1,000 ML IV SCH ×2 (05:11→18:24)
[2019-04-15 05:30] LABS: HEMATOCRIT. 38.3 % (42.0-52.0); HEMOGLOBIN. 12.8 g/dL (14.0-18.0); MEAN CORPUSCULAR HEMOGLOBIN 32.4 pg (28.0-32.0); MEAN CORPUSCULAR VOLUME 97.1 fL (80.0-94.0); MEAN PLATELET VOLUME 9.4 fl (7.4-10.4); PLATELET 214 x1000/uL (130-400); RED BLOOD CELL COUNT 3.95 mill/uL (4.7-6.1); RED CELL DISTRIBUTION WIDTH 16.4 % (11.6-14.6)
[2019-04-15 05:36] LABS: CHLORIDE 106 mEq/L (98-107)
[2019-04-15] MEDS ORDERED: CEFEPIME 500 MG in DEXTROSE 5% WATER 50 ML IV SCH (05:45)
[2019-04-15] MEDS: DIPHENHYDRAMINE 50MG/ML VIAL IV PRN ×3 (06:59→22:07)
[2019-04-15] MEDS: METHYLPREDNISOLONE SOD SUCC 40 MG/ML VIAL IV SCH ×3 (06:59→17:47)
[2019-04-15] MEDS: BLOOD SUGAR DIAGNOSTIC STRIP TEST SCH ×4 (07:07→21:13)
[2019-04-15] MEDS: INSULIN LISPRO 100 UNITS/ML SUBCUT SCH ×4 (07:24→22:29)
[2019-04-15] MEDS: ONDANSETRON HCL 4MG/2ML INJ IV PRN ×4 (07:47→20:51)
[2019-04-15 08:10] LABS: NUCLEATED RED BLOOD CELLS 1 /100 WBC; PLATELET ESTIMATE NORMAL
[2019-04-15] MEDS: PANTOPRAZOLE SODIUM 40 MG/VIAL IV SCH (08:38)
[2019-04-15] MEDS: CLOPIDOGREL 75MG TABLET PO SCH ×2 (08:38→16:12)
[2019-04-15] MEDS: CEFEPIME 1,000 MG in DEXTROSE 5% WATER 50 ML IV SCH ×2 (08:38→20:53)
[2019-04-15] MEDS: APIXABAN 5 MG TABLET PO SCH ×2 (08:38→16:12)
[2019-04-15] MEDS ORDERED: ENOXAPARIN 40MG/0.4ML SYR SUBCUT SCH (09:00)
[2019-04-15] MEDS ORDERED: PHENYLEPHRINE 10 MG in DEXT 5% WATER 249 ML IV PRN (09:30)
[2019-04-15] MEDS: ALPRAZOLAM 0.5 MG TABLET PO SCH (16:12)
[2019-04-15] MEDS: MONTELUKAST SODIUM 10MG TABLET PO SCH (16:12)
[2019-04-15 17:00] LABS: BG BASE EXCESS 3.5 mmol/L (-2.0-2.0); BG CARBOXYHEMOGLOBIN 0.1 % (0.5-1.5); BG DEOXYHEMOGLOBIN 2.8 % (0.0-5.0); BG HCO3 ACT 28.2 mmol/L (22.0-26.0); BG METHEMOGLOBIN 0.2 % (0.0-1.5); BG OXYGEN SATURATION 97.2 % (92.0-98.5); BG OXYHEMOGLOBIN 96.9 % (94.0-97.0); BG PH 7.434 (7.350-7.450); BG PO2 95.6 mmHg (75.0-100.0); BG SAMPLE SITE RIGHT RADIAL; BG TOTAL HEMOGLOBIN 13.2 g/dL (12.0-18.0); BG VENT MODE NASAL CANNULA
[2019-04-16] VITALS (13 sets, daily range): BP systolic 84–167; BP diastolic 45–106
[2019-04-16] MEDS: METHYLPREDNISOLONE SOD SUCC 40 MG/ML VIAL IV SCH ×4 (01:01→17:54)
[2019-04-16] MEDS: ONDANSETRON HCL 4MG/2ML INJ IV PRN ×4 (01:15→14:40)
[2019-04-16] MEDS: MORPHINE SULFATE 4 MG/ML CPJ (NOT FOR IM USE) IV PRN ×5 (01:16→20:52)
[2019-04-16] MEDS: DIPHENHYDRAMINE 50MG/ML VIAL IV PRN ×4 (06:14→20:53)
[2019-04-16] MEDS: BLOOD SUGAR DIAGNOSTIC STRIP TEST SCH ×4 (07:30→21:00)
[2019-04-16] MEDS: ALPRAZOLAM 0.5 MG TABLET PO SCH ×2 (08:28→17:54)
[2019-04-16] MEDS: CLOPIDOGREL 75MG TABLET PO SCH ×2 (08:28→17:54)
[2019-04-16] MEDS: APIXABAN 5 MG TABLET PO SCH ×2 (08:28→17:58)
[2019-04-16] MEDS: CEFEPIME 1,000 MG in DEXTROSE 5% WATER 50 ML IV SCH ×2 (08:29→20:52)
[2019-04-16] MEDS: PANTOPRAZOLE SODIUM 40 MG/VIAL IV SCH (08:30)
[2019-04-16] MEDS: INSULIN LISPRO 100 UNITS/ML SUBCUT SCH ×4 (08:41→22:30)
[2019-04-16] MEDS: SODIUM CHLORIDE 0.45% 1,000 ML IV SCH (08:48)
[2019-04-16 13:09] LABS: HEMATOCRIT. 37.4 % (42.0-52.0); HEMOGLOBIN. 12.6 g/dL (14.0-18.0); MEAN CORPUSCULAR VOLUME 97.4 fL (80.0-94.0); MEAN PLATELET VOLUME 8.7 fl (7.4-10.4); PLATELET 217 x1000/uL (130-400); RED BLOOD CELL COUNT 3.84 mill/uL (4.7-6.1); RED CELL DISTRIBUTION WIDTH 16.3 % (11.6-14.6)
[2019-04-16 13:29] LABS: CHLORIDE 107 mEq/L (98-107)
[2019-04-16] MEDS: MONTELUKAST SODIUM 10MG TABLET PO SCH (17:58)
[2019-04-16] MEDS ORDERED: FUROSEMIDE 40MG/4ML VIAL IVP NR (18:15)
[2019-04-16] MEDS ORDERED: INSULIN GLARGINE UD 100 UNITS/ML SYR SUBCUT NR (18:30)
[2019-04-16 19:52] LABS: PROTHROMBIN TIME 10.6 sec (9.6-11.0)
[2019-04-16] MEDS: FAMOTIDINE 20MG TABLET PO SCH (21:56)
[2019-04-16] MEDS: OSELTAMIVIR 75MG CAPSULE PO SCH (22:10)
[2019-04-16] MEDS: INSULIN GLARGINE UD 100 UNITS/ML SYR SUBCUT SCH (22:19)
[2019-04-17] VITALS (13 sets, daily range): BP systolic 100–175; BP diastolic 74–108
[2019-04-17] MEDS: METHYLPREDNISOLONE SOD SUCC 40 MG/ML VIAL IV SCH ×4 (01:05→17:02)
[2019-04-17] MEDS: ONDANSETRON HCL 4MG/2ML INJ IV PRN ×4 (01:05→18:15)
[2019-04-17] MEDS: DIPHENHYDRAMINE 50MG/ML VIAL IV PRN ×3 (01:05→17:03)
[2019-04-17] MEDS: MORPHINE SULFATE 4 MG/ML CPJ (NOT FOR IM USE) IV PRN ×4 (01:06→18:17)
[2019-04-17] MEDS: SODIUM CHLORIDE 0.45% 1,000 ML IV SCH ×2 (01:19→11:10)
[2019-04-17 04:24] LABS: PLATELET ESTIMATE NORMAL
[2019-04-17] MEDS: BLOOD SUGAR DIAGNOSTIC STRIP TEST SCH ×4 (07:30→20:42)
[2019-04-17 07:34] LABS: CHLORIDE 101 mEq/L (98-107)
[2019-04-17 07:41] LABS: HEMATOCRIT. 41.5 % (42.0-52.0); HEMOGLOBIN. 13.6 g/dL (14.0-18.0); MEAN CORPUSCULAR HEMOGLOBIN 32.1 pg (28.0-32.0); MEAN CORPUSCULAR VOLUME 97.9 fL (80.0-94.0); MEAN PLATELET VOLUME 9.1 fl (7.4-10.4); PLATELET 236 x1000/uL (130-400); RED BLOOD CELL COUNT 4.24 mill/uL (4.7-6.1); RED CELL DISTRIBUTION WIDTH 15.9 % (11.6-14.6)
[2019-04-17] MEDS: FAMOTIDINE 20MG TABLET PO SCH ×2 (08:21→20:34)
[2019-04-17] MEDS: CLOPIDOGREL 75MG TABLET PO SCH ×2 (08:21→18:15)
[2019-04-17] MEDS: APIXABAN 5 MG TABLET PO SCH ×2 (08:21→17:02)
[2019-04-17] MEDS: ALPRAZOLAM 0.5 MG TABLET PO SCH ×2 (08:21→17:02)
[2019-04-17] MEDS: OSELTAMIVIR 75MG CAPSULE PO SCH ×2 (08:21→20:34)
[2019-04-17] MEDS: CEFEPIME 1,000 MG in DEXTROSE 5% WATER 50 ML IV SCH ×2 (08:28→20:35)
[2019-04-17] MEDS: INSULIN GLARGINE UD 100 UNITS/ML SYR SUBCUT SCH ×2 (09:23→20:50)
[2019-04-17] MEDS: INSULIN LISPRO 100 UNITS/ML SUBCUT SCH ×4 (09:24→20:49)
[2019-04-17 11:35] LABS: PLATELET ESTIMATE NORMAL
[2019-04-17] MEDS: IPRATROPIUM/ALBUTEROL 0.5-3(2.5)MG/3ML NEB HHN PRN (11:39)
[2019-04-17] MEDS ORDERED: CLONIDINE 0.1MG TABLET PO PRN (12:00)
[2019-04-17] MEDS: NITROGLYCERIN OINT 1GM/INCH UDPKT TD SCH ×3 (12:53→18:00)
[2019-04-17] MEDS: AMLODIPINE 10MG TABLET PO SCH (12:54)
[2019-04-17] MEDS: FUROSEMIDE 20MG/2ML VIAL IVP SCH (12:54)
[2019-04-17] MEDS: MONTELUKAST SODIUM 10MG TABLET PO SCH (17:02)
[2019-04-18] VITALS (8 sets, daily range): BP systolic 117–160; BP diastolic 55–99
[2019-04-18] MEDS: DIPHENHYDRAMINE 50MG/ML VIAL IV PRN ×4 (00:16→21:01)
[2019-04-18] MEDS: METHYLPREDNISOLONE SOD SUCC 40 MG/ML VIAL IV SCH ×4 (00:16→18:35)
[2019-04-18] MEDS: MORPHINE SULFATE 4 MG/ML CPJ (NOT FOR IM USE) IV PRN ×4 (00:24→18:03)
[2019-04-18] MEDS: IPRATROPIUM/ALBUTEROL 0.5-3(2.5)MG/3ML NEB HHN PRN ×5 (00:40→20:55)
[2019-04-18] MEDS: NITROGLYCERIN OINT 1GM/INCH UDPKT TD SCH ×4 (06:00→19:01)
[2019-04-18] MEDS: BLOOD SUGAR DIAGNOSTIC STRIP TEST SCH ×4 (08:16→21:01)
[2019-04-18] MEDS: INSULIN LISPRO 100 UNITS/ML SUBCUT SCH ×4 (09:03→21:13)
[2019-04-18] MEDS: INSULIN GLARGINE UD 100 UNITS/ML SYR SUBCUT SCH ×2 (09:04→21:13)
[2019-04-18] MEDS: CEFEPIME 1,000 MG in DEXTROSE 5% WATER 50 ML IV SCH ×2 (09:05→21:01)
[2019-04-18] MEDS: OSELTAMIVIR 75MG CAPSULE PO SCH ×2 (09:06→21:01)
[2019-04-18] MEDS: ALPRAZOLAM 0.5 MG TABLET PO SCH ×2 (09:06→17:24)
[2019-04-18] MEDS: APIXABAN 5 MG TABLET PO SCH ×2 (09:06→17:24)
[2019-04-18] MEDS: AMLODIPINE 10MG TABLET PO SCH (09:06)
[2019-04-18] MEDS: FUROSEMIDE 20MG/2ML VIAL IVP SCH (09:10)
[2019-04-18] MEDS: FAMOTIDINE 20MG TABLET PO SCH ×2 (09:15→21:11)
[2019-04-18] MEDS: CLOPIDOGREL 75MG TABLET PO SCH ×2 (09:15→17:24)
[2019-04-18] MEDS: ONDANSETRON HCL 4MG/2ML INJ IV PRN ×2 (12:59→18:01)
[2019-04-18] MEDS: MONTELUKAST SODIUM 10MG TABLET PO SCH (17:24)
[2019-04-19] VITALS (7 sets, daily range): BP systolic 94–137; BP diastolic 68–97
[2019-04-19] MEDS: MORPHINE SULFATE 4 MG/ML CPJ (NOT FOR IM USE) IV PRN ×5 (00:01→21:21)
[2019-04-19] MEDS: ONDANSETRON HCL 4MG/2ML INJ IV PRN ×3 (00:03→14:05)
[2019-04-19] MEDS: NITROGLYCERIN OINT 1GM/INCH UDPKT TD SCH ×4 (05:15→18:00)
[2019-04-19] MEDS: METHYLPREDNISOLONE SOD SUCC 40 MG/ML VIAL IV SCH ×4 (05:15→18:11)
[2019-04-19] MEDS: BLOOD SUGAR DIAGNOSTIC STRIP TEST SCH ×4 (07:40→21:21)
[2019-04-19] MEDS: INSULIN LISPRO 100 UNITS/ML SUBCUT SCH ×4 (08:00→21:28)
[2019-04-19] MEDS: CEFEPIME 1,000 MG in DEXTROSE 5% WATER 50 ML IV SCH ×2 (08:00→21:20)
[2019-04-19] MEDS: ALPRAZOLAM 0.5 MG TABLET PO SCH ×2 (08:01→16:55)
[2019-04-19] MEDS: AMLODIPINE 10MG TABLET PO SCH (08:01)
[2019-04-19] MEDS: OSELTAMIVIR 75MG CAPSULE PO SCH ×2 (08:01→21:20)
[2019-04-19] MEDS: FAMOTIDINE 20MG TABLET PO SCH ×2 (08:01→21:20)
[2019-04-19] MEDS: DIPHENHYDRAMINE 50MG/ML VIAL IV PRN ×2 (08:01→14:05)
[2019-04-19] MEDS: APIXABAN 5 MG TABLET PO SCH ×2 (08:01→16:55)
[2019-04-19] MEDS: FUROSEMIDE 20MG/2ML VIAL IVP SCH (08:01)
[2019-04-19] MEDS: CLOPIDOGREL 75MG TABLET PO SCH ×2 (09:35→16:55)
[2019-04-19] MEDS: INSULIN GLARGINE UD 100 UNITS/ML SYR SUBCUT SCH ×2 (10:20→21:21)
[2019-04-19] MEDS: MONTELUKAST SODIUM 10MG TABLET PO SCH (16:55)
[2019-04-20] VITALS (8 sets, daily range): BP systolic 111–152; BP diastolic 74–125
[2019-04-20] MEDS: NITROGLYCERIN OINT 1GM/INCH UDPKT TD SCH ×4 (00:04→18:08)
[2019-04-20] MEDS: DIPHENHYDRAMINE 50MG/ML VIAL IV PRN ×3 (00:05→18:08)
[2019-04-20] MEDS: IPRATROPIUM/ALBUTEROL 0.5-3(2.5)MG/3ML NEB HHN PRN (04:13)
[2019-04-20] MEDS: METHYLPREDNISOLONE SOD SUCC 40 MG/ML VIAL IV SCH ×2 (05:42→18:08)
[2019-04-20] MEDS: MORPHINE SULFATE 4 MG/ML CPJ (NOT FOR IM USE) IV PRN ×2 (05:43→11:01)
[2019-04-20] MEDS: ONDANSETRON HCL 4MG/2ML INJ IV PRN ×2 (05:43→10:59)
[2019-04-20 07:09] LABS: CHLORIDE 103 mEq/L (98-107)
[2019-04-20 07:35] LABS: HEMATOCRIT 38.4 % (42.0-52.0); HEMOGLOBIN 12.8 g/dL (14.0-18.0); MEAN CORPUSCULAR HEMOGLOBIN 32.4 pg (28.0-32.0); MEAN CORPUSCULAR VOLUME 97.3 fL (80.0-94.0); PLATELET 239 x1000/uL (130-400); RED BLOOD CELL COUNT 3.95 mill/uL (4.7-6.1); RED CELL DISTRIBUTION WIDTH 16.2 % (11.6-14.6)
[2019-04-20] MEDS: BLOOD SUGAR DIAGNOSTIC STRIP TEST SCH ×3 (07:53→17:43)
[2019-04-20] MEDS: INSULIN LISPRO 100 UNITS/ML SUBCUT SCH ×3 (08:43→18:13)
[2019-04-20] MEDS: FUROSEMIDE 20MG/2ML VIAL IVP SCH (08:48)
[2019-04-20] MEDS: CLOPIDOGREL 75MG TABLET PO SCH ×2 (08:48→18:07)
[2019-04-20] MEDS: ALPRAZOLAM 0.5 MG TABLET PO SCH ×2 (08:49→17:00)
[2019-04-20] MEDS: OSELTAMIVIR 75MG CAPSULE PO SCH (08:49)
[2019-04-20] MEDS: APIXABAN 5 MG TABLET PO SCH ×2 (08:50→18:07)
[2019-04-20] MEDS: FAMOTIDINE 20MG TABLET PO SCH (08:50)
[2019-04-20] MEDS: AMLODIPINE 10MG TABLET PO SCH (08:51)
[2019-04-20] MEDS: CEFEPIME 1,000 MG in DEXTROSE 5% WATER 50 ML IV SCH (09:00)
[2019-04-20] MEDS: INSULIN GLARGINE UD 100 UNITS/ML SYR SUBCUT SCH (11:11)
[2019-04-20] MEDS ORDERED: P20 PO (13:55)
[2019-04-20] MEDS: MONTELUKAST SODIUM 10MG TABLET PO SCH (18:06)
== END 2019-04-20 18:50 | disposition home or self-care (01) | DRG 73 ==
LOC: ER 10:55 → MICUSO 17:44 → EDBEDREQSVC 17:45 → EDBEDREQ 17:45 → EDBEDREQTM 17:45 → ENRESERV 04-15 02:44 → 5EST 04-15 23:50
PROVIDERS: ADMIT Internal Medicine; ATTEND Internal Medicine
PROC: 5A09357 Assistance with Respiratory Ventilation, Less than 24 Consecutive Hours, Continuous Positive Airway Pressure (ICD-10-PCS; principal; 2019-04-14)
PROC: 5A09357 Assistance with Respiratory Ventilation, Less than 24 Consecutive Hours, Continuous Positive Airway Pressure (ICD-10-PCS; 2019-04-15)
PROC: 5A09357 Assistance with Respiratory Ventilation, Less than 24 Consecutive Hours, Continuous Positive Airway Pressure (ICD-10-PCS; 2019-04-16)
PROC: 5A09357 Assistance with Respiratory Ventilation, Less than 24 Consecutive Hours, Continuous Positive Airway Pressure (ICD-10-PCS; 2019-04-18)
PROC: 5A09357 Assistance with Respiratory Ventilation, Less than 24 Consecutive Hours, Continuous Positive Airway Pressure (ICD-10-PCS; 2019-04-20)
DX: G90.8 Other disorders of autonomic nervous system (principal); I71.00 Dissection of unspecified site of aorta; J44.1 Chronic obstructive pulmonary disease with (acute) exacerbation; J45.901 Unspecified asthma with (acute) exacerbation; I50.30 Unspecified diastolic (congestive) heart failure; E66.2 Morbid (severe) obesity with alveolar hypoventilation; I95.2 Hypotension due to drugs; E11.9 Type 2 diabetes mellitus without complications; I48.91 Unspecified atrial fibrillation; F41.9 Anxiety disorder, unspecified; I25.10 Atherosclerotic heart disease of native coronary artery without angina pectoris; E78.5 Hyperlipidemia, unspecified; G89.29 Other chronic pain; I11.0 Hypertensive heart disease with heart failure; J10.1 Influenza due to other identified influenza virus with other respiratory manifestations; K57.90 Diverticulosis of intestine, part unspecified, without perforation or abscess without bleeding; K64.9 Unspecified hemorrhoids; Z79.01 Long term (current) use of anticoagulants; Z79.02 Long term (current) use of antithrombotics/antiplatelets; Z86.74 Personal history of sudden cardiac arrest; I25.2 Old myocardial infarction; Z88.6 Allergy status to analgesic agent; Z95.5 Presence of coronary angioplasty implant and graft; Z88.8 Allergy status to other drugs, medicaments and biological substances; Z91.018 Allergy to other foods; Z79.899 Other long term (current) drug therapy; Z90.49 Acquired absence of other specified parts of digestive tract
CPT/HCPCS: 36415; 36600; 71045; 71275; 78580; 80048; 80053; 82375; 82533; 82805; 82962; 83880; 84145; 84484; 85025; 85027; 87804; 93005; 93306; 93880; 93970; 94640; 94660; 99291; C9113; J0456; J0692; J0696; J1200; J1720; J1815; J1940; J2270; J2405; J2920; J2930; J3010; J3475; J3490; J7030; J7060; Q9967

== ENCOUNTER → 2019-05-11 | Outpatient (CLI) | payer OTHER ==
[~2019-05-11] MED LIST changes: -MONT10TA24 MT; +MONT10TA26 MT; +P20 PO
== END | disposition home or self-care (01) ==
LOC: NM 09:55
PROVIDERS: ATTEND Internal Medicine
DX: K76.89 Other specified diseases of liver (principal); Z90.81 Acquired absence of spleen
CPT/HCPCS: 78215; A9541